=== PATIENT | female | born 1990 | race Caucasian/White ===

== ENCOUNTER → 2018-03-07 17:15 | Outpatient (CLI) | payer BC, SELFPAY ==
[2018-03-07 21:02] LABS: HCG Quantitative /Beta subunit < 2.39 mIU/mL
== END ==
PROVIDERS: Family Provider Family Medicine; PCP Family Medicine; Visit Provider Family Medicine
DX: N91.2 Amenorrhea, unspecified (principal)
CPT/HCPCS: 36415; 84702

== ENCOUNTER 2018-04-27 07:00 | Emergency (ER) | payer BC, SELFPAY ==
[2018-04-27 07:12] VITALS: BP 127/71; PULSE 100; RESP 18; TEMP 36.7; O2SAT 100; BMI 27.7
--- NOTE | 2018-04-27 07:31 | ED.ABDPAIN ---
HPI - Abdominal Pain General Chief Complaint: Abdominal Pain Stated Complaint: pelvic pain Time Seen by Provider: 04/27/18 07:25 Source: patient Mode of arrival: ambulatory Limitations: no limitations History of Present Illness HPI narrative: Patient is a 27-year-old female presents with sudden onset right lower quadrant pain. She was said she was doubled over in pain this morning car ride over here hurt. Last night she was fine. She has some pressure in her pelvic area. Sometimes she has radiation to her flank. But she denies flank to abdomen. No history of kidney stones. She does have a remote history of ovarian cyst. But she says this is far worse. She denies any fever or chills. No painful or frequent urination. MD complaint: abdominal pain Pain Consistency: intermittent Severity: severe Radiation: R flank Migration to: no migration Relieving factors: nothing Exacerbating factors: nothing Related Data Home Medications Medication Instructions Recorded Confirmed norethindrone ac-eth estradiol 1 tab PO DAILY 04/27/18 04/27/18 [Joe 1.5/30 (21)] Previous Rx's Medication Instructions Recorded tacrolimus [Protopic] 1 felipe TOPICAL QDAY #100 gm 07/22/17 Allergies Allergy/AdvReac Type Severity Reaction Status Date / Time adhesive Allergy Mild SENSITIVE Verified 04/27/18 07:18 SKIN amoxicillin Allergy Mild RASH Verified 04/27/18 07:18 latex Allergy Mild LOCAL Verified 04/27/18 07:18 REDNESS Sulfa (Sulfonamide Allergy Unknown Verified 04/27/18 07:18 Antibiotics) [SULFA (SULFONAMIDE ANTIBIOTICS)] codeine AdvReac Mild VOMITING Verified 04/27/18 07:18 Review of Systems Review of Systems GENERAL: Denies chills, fatigue, malaise, fever, sweats, travel HEENT: Denies sinus pain, ear pain, sore throat, difficulty swallowing, neck pain RESPIRATORY: Denies dyspnea, cough, wheezing, hemoptysis, sputum. CARDIOVASCULAR: Denies chest pain, palpitations, orthopnea, edema GASTROINTESTINAL: See HPI : Denies dysuria, frequency, incontinence, hematuria, urinary retention, flank pain. MUSCULOSKELETAL: Denies weakness, joint pain, or bony pain SKIN: No rash, no erythema, no pruritus NEUROLOGIC: Denies weakness, dizziness, headache, numbness, change in speech, confusion PSYCHIATRIC: No concerning psychosocial issues. 12 point review of systems is negative except for those stated above and HPI PFSH Medical History Ovarian cyst (Acute) Surgical History Status post colonoscopy Social History marital status: Smoking Status: Never smoker alcohol intake: current (1-3 A WEEK ) substance use type: does not use Exam Initial Vital Signs Initial Vital Signs: Vital Signs Temperature 98.1 F 04/27/18 07:12 Pulse Rate 100 H 04/27/18 07:12 Respiratory Rate 18 04/27/18 07:12 Blood Pressure 127/71 04/27/18 07:12 Pulse Oximetry 100 04/27/18 07:12 GENERAL: Well-appearing, well-nourished and in no acute distress. HEENT: Head atraumatic,EOMI, pupils reactive CARDIOVASCULAR: Regular rate and rhythm without murmurs, rubs or gallops. RESPIRATORY: Breath sounds equal bilaterally, no wheezes rales or rhonchi. ABDOMEN: Soft, mild right lower quadrant pain no guarding or rebound negative Hutchins : No CVA tenderness EXTREMITIES: Normal range of motion, no clubbing or edema. Neurovascularly intact NEUROLOGICAL: Alert and oriented x4.Normal gait and speech. Cranial nerves II through XII grossly intact. SKIN: Warm, dry, no laceration, no petechiae, no rashes or lesions. Course Orders Ordered: ED Orders 04/27/18 07:36 US pelvic complete Stat 04/27/18 07:37 Complete Blood Count AUTO DIFF Stat Comprehensive Metabolic Panel Stat Lipase Stat 04/27/18 07:45 CT abdomen pelvis w con Stat 04/27/18 08:08 Test Serum,Qual Stat Discontinued Medications Ketorolac Tromethamine (Toradol) 30 mg IV NOW ONE Stop: 04/27/18 07:37 Last Admin: 04/27/18 08:21 Dose: 30 mg Ondansetron HCl (Zofran) 4 mg IV NOW ONE Stop: 04/27/18 07:37 Last Admin: 04/27/18 08:20 Dose: 4 mg Vital Signs - 8 hr 04/27/18 07:12 04/27/18 09:47 Temperature 98.1 F 98.3 F Pulse Rate 100 H 81 Respiratory Rate 18 20 Blood Pressure 127/71 117/77 Pulse Oximetry 100 95 MDM - Abdominal Pain Lab Data Attestation: I reviewed the patient's lab results. Result diagrams: 04/27/18 07:37 04/27/18 07:37 Lab Results 04/27/18 04/27/18 04/27/18 Range/Units 07:37 07:37 08:08 WBC 8.4 (4.5-11.0) X10^3/uL RBC 4.88 (4.0-5.2) X10^6/uL Hgb 13.9 (12.0-16.0) g/dL Hct 41.7 (36-46) % MCV 85.5 (80-100) fL MCH 28.5 (26-34) PG MCHC 33.3 (30-36) % RDW 13.6 (11.6-14.8) % Plt Count 290 (150-400) X10^3/uL Neut % (Auto) 67.1 (50-75) % Lymph % (Auto) 22.3 L (25-40) % [place] % (Auto) 8.5 (3-14) % Eos % (Auto) 1.9 L (2-4) % Baso % (Auto) 0.2 (0-2) % Neut # (Auto) 5600 (9117-3022) /uL Sodium 140 (137-145) mmol/L Potassium 3.9 (3.4-5.1) mmol/L Chloride 105 (98-107) mmol/L Carbon Dioxide 24 (22-32) mmol/L BUN 4 L (7-17) mg/dL Creatinine 0.50 L (0.52-1.04) mg/dL Estimated GFR > 60.0 (>60) mL/min BUN/Creatinine Ratio 8.0 (6-22) Glucose 94 (70-100) mg/dL Calcium 9.6 (8.4-10.2) mg/dL Total Bilirubin 0.4 (0.2-1.3) mg/dL AST 33 (14-36) IU/L ALT 63 H (9-52) IU/L Alkaline Phosphatase 100 (38-126) U/L Total Protein 7.8 (6.3-8.2) g/dL Albumin 4.8 (3.5-5.0) g/dL Globulin 3.0 (1.7-4.1) g/dL Albumin/Globulin Ratio 1.6 (1.0-2.8) Lipase 19 L (23-300) U/L Serum , Qual Negative (Negative) Point of care testing: Point of Care Testing Test Results Negative Urine Dip Bedside Urine Glucose Negative Bedside Urine Bilirubin - Negative Bedside Urine Ketone - Negative Urine Specific Brandon 1.015 Bedside Urine Occult Blood - Negative Bedside Urine pH 7.0 Bedside Urine Protein - Negative Bedside Urine Urobilinogen - Negative Bedside Urine Nitrite - Negative Bedside Urine Leukocytes - Negative Esterase Imaging Data pelvic US: Radiologist's impression: Patient: Mychal Mcneil [facility]#: [id number] : 1990Acct:[id number] Age/Sex: 27 / FDate of Service: 04/27/18 Loc: ED Accession Number: [id number] Procedure: US pelvic complete Ordering Provider: Julita Lam D.O. PROCEDURE: US PELVIC COMPLETE INDICATIONS: PAIN TECHNIQUE: Real-time scanning was performed of the pelvic organs, with image documentation. Additional endovaginal scanning was necessary due to incomplete visualization of the adnexal and endometrial structures by transabdominal scanning. COMPARISON: [facility], CT, CT ABDOMEN PELVIS W CON, 04/27/2018, 7:37. [facility], US, PELVIC COMPLETE, 01/11/2015, 14:51. FINDINGS: Transabdominal scanning: Limited scanning through the kidneys shows no hydronephrosis. No pathologic free abdominal or pelvic fluid. Endovaginal scanning: Uterus: Uterus is normal in size at 7.7 x 3.2 x 4.7 cm. The endometrium measures 5.3 mm in combined thickness. Ovaries: The right ovary measures 2.7 x 2.0 x 2.1 cm and has normal echotexture. The left ovary measures 5.0 x 2.7 x 2.9 cm. There is a simple 4.6 x 1.2 x 2.4 cm left ovarian cyst. There is approximately 50 cc anechoic fluid near the left ovary. IMPRESSION: 1. Sonographic findings suspicious for recent rupture of a left simple ovarian cyst. 6-12 week followup is recommended to ensure resolution of this finding. Please note, ectopic is considered unlikely given the negative urine test. However, please correlate with clinical findings as free fluid in the pelvis can be worrisome for a ruptured ectopic in the appropriate clinical setting. These findings were discussed with Dr. Lam at 9:14 AM on 04/27/18. Dictated by: Tamra Reyna M.D. on 04/27/2018 at 9:10 CT scan - abdomen: Radiologist's impression: PROCEDURE: CT ABDOMEN PELVIS W CON INDICATIONS: right lower quad pain TECHNIQUE: After the administration of intravenous contrast, 5 mm thick sections acquired from the diaphragm to the symphysis. 5 mm coronal and sagittal reformats were acquired. For radiation dose reduction, the following was used: automated exposure control, adjustment of mA and/or kV according to patient size. COMPARISON: [facility], , PELVIC COMPLETE, 04/27/2018, 8:43. FINDINGS: Image quality: Excellent. ABDOMEN: Lung bases: Lung bases are clear. Heart size is normal. Solid organs: Liver is normal in size and enhancement. Gallbladder is unremarkable. Biliary system is non dilated. Pancreas enhances normally. Spleen is normal in size and enhancement. No adrenal nodules. Kidneys demonstrate normal size and enhancement, without hydronephrosis. Peritoneum and bowel: Bowel loops demonstrate normal wall thickness and caliber. No free air. Moderate stool is present without obstruction. The appendix is unremarkable. Nodes and vessels: No retroperitoneal or mesenteric adenopathy by size criteria. Aorta and inferior vena cava are normal in size. Miscellaneous: No ventral hernias. PELVIS: Genitourinary: Bladder wall thickness is normal. There are areas of ill-defined rounded enhancement within the region of the adnexa bilaterally, left greater than right. Moderate free fluid is present within the dependent pelvis. Minimal fluid is noted within the right lower quadrant. Miscellaneous: No inguinal hernias or adenopathy. Bones: No suspicious bony lesions. No vertebral body compression fractures. IMPRESSION: 1. Prominent fluid within the pelvis and right lower quadrant with enhancing areas within adnexa overall highly suggestive of ruptured ovarian cyst. However, please recommend correlation with negative test, as in appropriate clinical setting, similar appearance can be seen with ruptured ectopic . 2. Moderate stool without obstruction. Dictated by: Stefani Rodriguez M.D. on 04/27/2018 at 10:41 MDM Narrative Medical decision making narrative: I initially discussed case with to read the pelvic ultrasound. She is made aware of urine negative but initially was concern for possible ruptured ectopic. She did briefly look at the CT abdomen is and she did not see appendicitis. At that point patient was discharged. Dr. velma mercedes is reading abdominal CT. There was delay in technology. She said she is recorded and read the scan but got lost in the PACS system. She also question possible ectopic. Which point serum was added and is negative. No appendicitis. Likely a ruptured ovarian cyst. History and signs and symptoms also correlate with ruptured ovarian cyst. Discharge Plan Departure Patient Disposition: Home Clinical Impression: Ovarian cyst Discharge Date/Time: 04/27/18 09:47 Interventions: ED Discharge Assessment Last Done: 04/27/18 09:47 Instructions: DI for Ovarian Cyst Activity Restrictions/Additional Instructions: *You have been diagnosed with left ovarian cyst *What to do: Will need repeat ultrasound in 6-12 weeks with her PCP to ensure resolution. *Continue to take medications as directed Motrin 600-800 mg every 8 hr if needed for pain *Follow up with your primary care provider in 2-3 days *Return to ER if you should have worsening pain, fever or any new, worsening or concerning symptoms Prescriptions: No Action tacrolimus [Protopic] 0.1 % ointment 1 felipe Topical QDAY Qty: 100 RF: 3 norethindrone ac-eth estradiol [Joe 1.5 (21)] 1.5-30 mg-mcg tablet 1 tab PO DAILY RF: 0 Referrals: Abe Coffey MD [Primary Care Provider] -
--- NOTE | 2018-04-27 07:36 | DI.US.S_ITS ---
PROCEDURE: US PELVIC COMPLETE INDICATIONS: PAIN TECHNIQUE: Real-time scanning was performed of the pelvic organs, with image documentation. Additional endovaginal scanning was necessary due to incomplete visualization of the adnexal and endometrial structures by transabdominal scanning. COMPARISON: [facility], CT, CT ABDOMEN PELVIS W CON, 04/27/2018, 7:37. [facility], US, PELVIC COMPLETE, 01/11/2015, 14:51. FINDINGS: Transabdominal scanning: Limited scanning through the kidneys shows no hydronephrosis. No pathologic free abdominal or pelvic fluid. Endovaginal scanning: Uterus: Uterus is normal in size at 7.7 x 3.2 x 4.7 cm. The endometrium measures 5.3 mm in combined thickness. Ovaries: The right ovary measures 2.7 x 2.0 x 2.1 cm and has normal echotexture. The left ovary measures 5.0 x 2.7 x 2.9 cm. There is a simple 4.6 x 1.2 x 2.4 cm left ovarian cyst. There is approximately 50 cc anechoic fluid near the left ovary. IMPRESSION: 1. Sonographic findings suspicious for recent rupture of a left simple ovarian cyst. 6-12 week followup is recommended to ensure resolution of this finding. Please note, ectopic is considered unlikely given the negative urine test. However, please correlate with clinical findings as free fluid in the pelvis can be worrisome for a ruptured ectopic in the appropriate clinical setting. These findings were discussed with Dr. Lam at 9:14 AM on 04/27/18. Dictated by: Tamra Reyna M.D. on 04/27/2018 at 9:10 Approved by: Tamra Reyna M.D. on 04/27/2018 at 9:15
--- NOTE | 2018-04-27 07:45 | DI.CT.S_ITS ---
PROCEDURE: CT ABDOMEN PELVIS W CON INDICATIONS: right lower quad pain TECHNIQUE: After the administration of intravenous contrast, 5 mm thick sections acquired from the diaphragm to the symphysis. 5 mm coronal and sagittal reformats were acquired. For radiation dose reduction, the following was used: automated exposure control, adjustment of mA and/or kV according to patient size. COMPARISON: [facility], , US PELVIC COMPLETE, 04/27/2018, 8:43. FINDINGS: Image quality: Excellent. ABDOMEN: Lung bases: Lung bases are clear. Heart size is normal. Solid organs: Liver is normal in size and enhancement. Gallbladder is unremarkable. Biliary system is non dilated. Pancreas enhances normally. Spleen is normal in size and enhancement. No adrenal nodules. Kidneys demonstrate normal size and enhancement, without hydronephrosis. Peritoneum and bowel: Bowel loops demonstrate normal wall thickness and caliber. No free air. Moderate stool is present without obstruction. The appendix is unremarkable. Nodes and vessels: No retroperitoneal or mesenteric adenopathy by size criteria. Aorta and inferior vena cava are normal in size. Miscellaneous: No ventral hernias. PELVIS: Genitourinary: Bladder wall thickness is normal. There are areas of ill-defined rounded enhancement within the region of the adnexa bilaterally, left greater than right. Moderate free fluid is present within the dependent pelvis. Minimal fluid is noted within the right lower quadrant. Miscellaneous: No inguinal hernias or adenopathy. Bones: No suspicious bony lesions. No vertebral body compression fractures. IMPRESSION: 1. Prominent fluid within the pelvis and right lower quadrant with enhancing areas within adnexa overall highly suggestive of ruptured ovarian cyst. However, please recommend correlation with negative test, as in appropriate clinical setting, similar appearance can be seen with ruptured ectopic . 2. Moderate stool without obstruction. Dictated by: Stefani Rodriguez M.D. on 04/27/2018 at 10:41 Approved by: Stefani Rodriguez M.D. on 04/27/2018 at 10:46
[2018-04-27 08:18] LABS: Add Manual Diff / Slide Review NO; Basophils Percent Auto 0.2 % (0-2); Eosinophils Percent Auto 1.9 % (2-4); Hematocrit 41.7 % (36-46); Hemoglobin 13.9 g/dL (12.0-16.0); Lymphocytes Percent Auto 22.3 % (25-40); Mean Corpuscular HGB Conc 33.3 % (30-36); Mean Corpuscular Hemoglobin 28.5 PG (26-34); Mean Corpuscular Volume 85.5 fL (80-100); Monocytes Percent Auto 8.5 % (3-14); Neutrophils Absolute Auto 5600 /uL (3000-5900); Neutrophils Percent Auto 67.1 % (50-75); Platelet Count 290 X10^3/uL (150-400); Red Blood Cell Count 4.88 X10^6/uL (4.0-5.2); Red Cell Distribution Width 13.6 % (11.6-14.8); White Blood Cell Count 8.4 X10^3/uL (4.5-11.0)
[2018-04-27] MEDS: ONDANSETRON 4 MG/2 ML INJ IV (08:20)
[2018-04-27] MEDS: KETOROLAC 60 MG/2 ML VIAL 30 MG IV (08:21)
[2018-04-27 08:29] LABS: Alanine Aminotransferase 63 IU/L (9-52); Albumin 4.8 g/dL (3.5-5.0); Albumin Globulin Ratio 1.6 (1.0-2.8); Alkaline Phosphatase 100 U/L (38-126); Aspartate Aminotransferase 33 IU/L (14-36); Bilirubin Total 0.4 mg/dL (0.2-1.3); Blood Urea Nitrogen 4 mg/dL (7-17); Calcium 9.6 mg/dL (8.4-10.2); Carbon Dioxide 24 mmol/L (22-32); Chloride 105 mmol/L (98-107); Estimated Glomerular Filt Rate > 60.0 mL/min (>60); Glucose 94 mg/dL (70-100); HEMOLYSIS < 15 (0-50); Lipase 19 U/L (23-300); Potassium 3.9 mmol/L (3.4-5.1); Sodium 140 mmol/L (137-145); Total Protein 7.8 g/dL (6.3-8.2)
[2018-04-27 09:47] VITALS: BP 117/77; PULSE 81; RESP 20; TEMP 36.8; O2SAT 95
[2018-04-27 10:54] LABS: Pregnancy Test Serum,Qual Negative (Negative)
--- NOTE | 2018-04-30 15:06 | PC.NURSE ---
Follow-up phone call provided. No answer at this time
== END 2018-04-27 09:47 | disposition home or self-care (01) ==
PROVIDERS: Emergency Provider Emergency Medicine; PCP Family Medicine
DX: N83.209 Unspecified ovarian cyst, unspecified side (principal)
CPT/HCPCS: 74177; 76830; 76856; 80053; 81003; 81025; 83690; 84703; 85025; 96374; 96375; 99282; 99285; J1885; J2405; Q9967

== ENCOUNTER → 2018-06-10 09:56 | Outpatient (CLI) | payer BC, SELFPAY ==
--- NOTE | 2018-06-10 09:58 | DI.US.S_ITS ---
PROCEDURE: US PELVIC COMPLETE INDICATIONS: FOLLOW-UP OVARIAN CYST TECHNIQUE: Real-time scanning was performed of the pelvic organs, with image documentation. Additional endovaginal scanning was necessary due to incomplete visualization of the adnexal and endometrial structures by transabdominal scanning. COMPARISON: [facility], CT, CT ABDOMEN PELVIS W CON, 04/27/2018, 7:37. [facility], US, US PELVIC COMPLETE, 04/27/2018, 8:43. [facility], US, PELVIC COMPLETE, 01/11/2015, 14:51. FINDINGS: Transabdominal scanning: Limited scanning through the kidneys shows no hydronephrosis. No pathologic free abdominal or pelvic fluid. Endovaginal scanning: Uterus: Uterus is normal in size at 3.0 x 3.7 x 6.7 cm, anteverted. The endometrium measures 1.5 mm in combined thickness. Ovaries: Normal bilaterally, measuring up to 1.4 x 1.8 x 2.8 cm on the right and 1.8 x 2.4 x 3.6 cm on the left IMPRESSION: Resolution of adnexal cyst, normal appearing ovaries and uterus at this time. Dictated by: Shukri Dwyer M.D. on 06/10/2018 at 12:22 Approved by: Shukri Dwyer M.D. on 06/10/2018 at 12:23
== END ==
PROVIDERS: PCP Family Medicine; Visit Provider Family Medicine
DX: N83.209 Unspecified ovarian cyst, unspecified side (principal)
CPT/HCPCS: 76830; 76856

== ENCOUNTER → 2018-09-18 11:22 | Outpatient (CLI) | payer BC, SELFPAY ==
[2018-09-18 11:43] LABS: Influenza A and B by PCR Rapid Negative (Negative)
== END ==
PROVIDERS: PCP Family Medicine; Visit Provider Physician Assistant
DX: R68.89 Other general symptoms and signs (principal)
CPT/HCPCS: 87400

== ENCOUNTER → 2019-02-24 11:16 | Outpatient (CLI) | payer BC, SELFPAY ==
--- NOTE | 2019-02-24 11:18 | DI.US.S_ITS ---
PROCEDURE: US PELVIC COMPLETE INDICATIONS: PELVIC PAIN TECHNIQUE: Real-time scanning was performed of the pelvic organs, with image documentation. Additional endovaginal scanning was necessary due to incomplete visualization of the adnexal and endometrial structures by transabdominal scanning. COMPARISON: [facility], , US PELVIC COMPLETE, 06/10/2018, 10:28. FINDINGS: Transabdominal scanning: Limited scanning through the kidneys shows no hydronephrosis. No pathologic free abdominal or pelvic fluid. Endovaginal scanning: Uterus: Uterus is normal in size at 9.2 x 3.8 x 4.8 cm. The endometrium measures 6.0 mm in combined thickness. Ovaries: Thick walled, complex cysts involve both the right and left ovaries measuring 4.1 x 3.4 x 3.4 cm on the right and 5.0 x 3.2 x 4.5 cm on the left. IMPRESSION: Complex bilateral ovarian cysts. Recommend short-term followup pelvic ultrasound in 6-12 weeks to document temporal resolution. Dictated by: Amilcar YOUNG Interpreted: Stefani Rodriguez MD on 02/24/2019 at 17:09 Approved by: Stefani Rodriguez M.D. on 02/24/2019 at 17:37
== END ==
PROVIDERS: Family Provider Family Medicine; PCP Family Medicine; Visit Provider Hospitalist
DX: R10.2 Pelvic and perineal pain (principal); N83.292 Other ovarian cyst, left side; N83.291 Other ovarian cyst, right side
CPT/HCPCS: 76830; 76856

== ENCOUNTER → 2019-03-14 15:21 | Outpatient (CLI) | payer BC, SELFPAY ==
[2019-03-14 17:04] LABS: Follicle Stimulating Hormone 5.94 mIU/mL; Prolactin 49.8 ng/mL (3.0-18.6)
[2019-03-14 17:18] LABS: Thyroid Stimulating Hormone 1.03 uIU/mL (0.47-4.68)
[2019-03-17 14:33] LABS: Testosterone Free 4.7 pg/mL (0.1-6.4); Testosterone Total 51 ng/dL (2-45)
== END ==
PROVIDERS: PCP Family Medicine
DX: N91.2 Amenorrhea, unspecified (principal); N97.0 Female infertility associated with anovulation
CPT/HCPCS: 36415; 83001; 83002; 84146; 84402; 84403; 84443

== ENCOUNTER → 2019-03-16 10:21 | Outpatient (CLI) | payer BC, SELFPAY | PROVIDERS: PCP Family Medicine | DX: Z23 Encounter for immunization (principal) | CPT/HCPCS: 90471; 90686 ==

== ENCOUNTER → 2019-03-23 15:42 | Outpatient (CLI) | payer BC, SELFPAY | PROVIDERS: Family Provider Family Medicine; PCP Family Medicine | DX: N97.9 Female infertility, unspecified (principal) | CPT/HCPCS: 36415; 84144 ==

== ENCOUNTER → 2019-03-30 13:18 | Outpatient (CLI) | payer BC, SELFPAY ==
[2019-03-30 14:38] LABS: HCG Quantitative /Beta subunit 159.35 mIU/mL
== END ==
PROVIDERS: PCP Family Medicine
DX: Z32.01 Encounter for pregnancy test, result positive (principal)
CPT/HCPCS: 36415; 84702

== ENCOUNTER → 2019-04-01 09:48 | Outpatient (CLI) | payer BC, SELFPAY ==
[2019-04-01 13:07] LABS: HCG Quantitative /Beta subunit 348.41 mIU/mL
== END ==
PROVIDERS: PCP Family Medicine
DX: Z32.01 Encounter for pregnancy test, result positive (principal)
CPT/HCPCS: 36415; 84702

== ENCOUNTER → 2019-04-26 14:33 | Outpatient (CLI) | payer BC, SELFPAY ==
[2019-04-26 15:28] LABS: Add Manual Diff / Slide Review NO; Basophils Absolute Auto 0 /uL (0-100); Basophils Percent Auto 0.3 % (0-2); Eosinophils Absolute Auto 100 /uL (0-450); Eosinophils Percent Auto 0.7 % (2-4); Hematocrit 36.2 % (36-46); Hemoglobin 12.5 g/dL (12.0-16.0); Lymphocytes Absolute Auto 2200 /uL (1100-4500); Lymphocytes Percent Auto 16.8 % (25-40); Mean Corpuscular HGB Conc 34.6 % (30-36); Mean Corpuscular Hemoglobin 29.4 PG (26-34); Monocytes Absolute Auto 700 /uL (0-900); Monocytes Percent Auto 5.1 % (3-14); Neutrophils Absolute Auto 9900 /uL (1500-7000); Neutrophils Percent Auto 77.1 % (50-75); Platelet Count 319 X10^3/uL (150-400); Red Blood Cell Count 4.25 X10^6/uL (4.0-5.2); Red Cell Distribution Width 13.5 % (11.6-14.8); White Blood Cell Count 12.9 X10^3/uL (4.5-11.0)
[2019-04-26 15:50] LABS: Appearance Urine UA CLEAR; Bilirubin Urine UA NEGATIVE (NEGATIVE); Color Urine UA YELLOW; Glucose Urine UA NEGATIVE (Negative); Ketones Urine UA NEGATIVE (NEGATIVE); Leukocyte Esterase Urine UA NEGATIVE (NEGATIVE); Nitrite Urine UA NEGATIVE (Negative); Occult Blood Urine UA NEGATIVE (Negative); Protein Urine UA NEGATIVE (Negative); Specific Gravity Urine UA 1.015 (1.000-1.035); Urobilinogen Urine UA 0.2 E.U./dL (0.2)
[2019-04-26 15:58] LABS: pH Urine UA 5.5 (4.5-8.0)
[2019-04-26 17:49] LABS: Hepatitis B Surface Antigen NEGATIVE s/c (NEGATIVE)
[2019-04-26 18:33] LABS: HIV 1 & 2 Ab/Ag 4th Gen Combo NEGATIVE (NEGATIVE); Hep C Virus Ab w/Reflex Quant NEGATIVE s/c (NEGATIVE)
[2019-04-29 20:08] LABS: RPR Screen Nonreactive (Nonreactive)
== END ==
PROVIDERS: PCP Family Medicine; Visit Provider Specialist
DX: Z34.01 Encounter for supervision of normal first pregnancy, first trimester (principal)
CPT/HCPCS: 36415; 80055; 81003; 86787; 86803; 86850; 86900; 86901; 87086; 87389

== ENCOUNTER 2019-06-18 07:12 | Emergency (ER) | payer BC, SELFPAY ==
--- NOTE | 2019-06-18 07:19 | ED.URI ---
HPI - URI/Sore Throat General Chief Complaint: Ear Stated Complaint: ear pain, thinks sinus and ear infection Time Seen by Provider: 06/18/19 07:18 Source: patient Mode of arrival: Ambulatory Limitations: no limitations History of Present Illness HPI Narrative: Patient is a 28-year-old female [id number] weeks presenting with upper sinus infection and now worsening left ear pain. She says that she has been using a Neti pot for the last 2 weeks however now she has significant pain over her left zygomatic arch her left ear is quite painful she was unable to sleep last night. No fevers or chills she does have a cough nonproductive no shortness of breath. MD Complaint: sinus pain Onset (ago): day(s) Duration: constant Severity: moderate Relieving factors: nothing Related Data Home Medications Medication Instructions Recorded Confirmed cetirizine 10 mg tablet 10 mg PO DAILY PRN 02/23/19 05/31/19 prenat.vits,boyd,[id number]-yrpy-[id number] 1 tab PO DAILY 04/18/19 05/31/19 Previous Rx's Medication Instructions Recorded cefdinir 300 mg PO Q12H #14 cap 06/18/19 Allergies Allergy/AdvReac Type Severity Reaction Status Date / Time adhesive Allergy Mild SENSITIVE Verified 06/18/19 07:20 SKIN amoxicillin Allergy Mild RASH Verified 06/18/19 07:20 latex Allergy Mild LOCAL Verified 06/18/19 07:20 REDNESS Sulfa (Sulfonamide Allergy Unknown Verified 06/18/19 07:20 Antibiotics) [SULFA (SULFONAMIDE ANTIBIOTICS)] codeine AdvReac Mild VOMITING Verified 06/18/19 07:20 Review of Systems Review of Systems Narrative: GENERAL: Denies chills, fatigue, malaise, fever, sweats, travel HEENT: See HPI RESPIRATORY: Denies dyspnea, cough, wheezing, hemoptysis, sputum. CARDIOVASCULAR: Denies chest pain, palpitations, orthopnea, edema GASTROINTESTINAL: Denies nausea, vomiting, abdominal pain, diarrhea, constipation, melena. : Denies dysuria, frequency, incontinence, hematuria, urinary retention, flank pain. MUSCULOSKELETAL: Denies weakness, joint pain, or bony pain SKIN: No rash, no erythema, no pruritus NEUROLOGIC: Denies weakness, dizziness, headache, numbness, change in speech, confusion PSYCHIATRIC: No concerning psychosocial issues. 12 point review of systems is negative except for those stated above and HPI Patient History Medical History Anemia (Chronic 2005) Chicken pox (Resolved 1995) Eczema (Chronic 1999) Endometriosis (Chronic 2010) Fractures (Resolved 2003) Hemorrhoid (Chronic 2013) Infertility (Acute) Irregular menstrual cycle (Chronic 2010) Irritable bowel syndrome (Chronic 2009) Migraines (Chronic 2007) Ovarian cyst (Chronic 2011) Painful menstrual periods (Chronic 2010) Seasonal allergies (Chronic 2007) Tinnitus (Chronic 2009) Surgical History Anesthesia (Resolved) History of esophagogastroduodenoscopy (EGD) (Resolved 05/21/14) History of knee surgery (Resolved 11/08/14) Status post colonoscopy (Resolved 05/21/14) Family History Father Cancer High cholesterol Brain cancer Seizure Grandfather Heart disease Congestive heart failure Grandmother Cancer Mother Type 2 diabetes mellitus Depression Hypertension Mental health problem Grandfather Hemorrhagic stroke Grandmother Heart disease Heart attack Brother Developmental delay Brother Addiction Other Colon polyps Social History marital status: number of children: 0 household members: spouse pets and animals: Yes (Dogs X 2) education level: college (two Associate Degrees) occupational status: employed current occupational exposures/hazards: Yes (Radiology and Fluorscopy ) Smoking Status: Never smoker second hand exposure: No alcohol intake: former (Socially) substance use type: does not use Smoking Status: Never smoker alcohol intake frequency: 0-2 drinks per day Substance Use Type: marijuana Exam Initial Vital Signs Initial Vital Signs: Vital Signs Temperature 98.5 F 06/18/19 07:20 Pulse Rate 110 H 06/18/19 07:20 Respiratory Rate 16 06/18/19 07:20 Blood Pressure 134/89 06/18/19 07:20 Pulse Oximetry 100 06/18/19 07:20 GENERAL: Well-appearing, well-nourished and in no acute distress. HEENT: Head atraumatic,EOMI, pupils reactive, left facial tenderness no swelling EARS: Left tympanic membrane is erythematous with bulging membrane is right ear is within normal limits PHARYNX: No erythema, no tonsillar exudate, no cervical lymphadenopathy CARDIOVASCULAR: Regular rate and rhythm without murmurs, rubs or gallops. RESPIRATORY: Breath sounds equal bilaterally, no wheezes rales or rhonchi. EXTREMITIES: Normal range of motion, no clubbing or edema. Neurovascularly intact NEUROLOGICAL: Alert and oriented x4.Normal gait and speech. Cranial nerves II through XII grossly intact. SKIN: Warm, dry, no laceration, no petechiae, no rashes or lesions. Course Vital Signs Vital signs: Vital Signs - 8 hr 06/18/19 07:20 Temperature 98.5 F Pulse Rate 110 H Respiratory Rate 16 Blood Pressure 134/89 Pulse Oximetry 100 MDM - URI/Sore Throat MDM Narrative Medical decision making narrative: heart tones done by myself heart rate 156 Discharge Plan Departure Patient Disposition: Home Clinical Impression: Acute left otitis media Discharge Date/Time: 06/18/19 07:49 Instructions: Middle Ear Infection Activity Restrictions/Additional Instructions: *You have been diagnosed with left ear infection *What to do: Rest, increase fluid intake *Continue to take medications as directed Cefdinir 300 mg twice a day for 10 days Tylenol 1000 mg every 6 hours if needed for pain or fever do not exceed more than 4000 mg to 24 hours *Follow up with your primary care provider in 2-3 days *Return to ER if you should have increasing pain, fevers not controlled with Tylenol increasing shortness of breath or cough or any new, worsening or concerning symptoms Prescriptions: New cefdinir 300 mg capsule 300 mg PO Q12H Qty: 14 RF: 0 No Action cetirizine [Zyrtec] 10 mg tablet 10 mg PO DAILY PRNRF: 0 prenat.vits,boyd,qnw-[id number]-unrok Tablet 1 tab PO DAILY RF: 0 Referrals: Abe Coffey MD [Primary Care Provider] -
[2019-06-18 07:20] VITALS: BP 134/89; PULSE 110; RESP 16; TEMP 36.9; O2SAT 100; BMI 27.3
== END 2019-06-18 07:49 | disposition home or self-care (01) ==
PROVIDERS: Emergency Provider Emergency Medicine; PCP Family Medicine
DX: H66.92 Otitis media, unspecified, left ear (principal); Z33.1 Pregnant state, incidental
CPT/HCPCS: 99282

== ENCOUNTER → 2019-07-10 14:50 | Outpatient (CLI) | payer BC, SELFPAY ==
[2019-07-13 07:49] LABS: AFP, Serum 62.6 ng/mL; Calc Gestational Age 18.4; Cigarette Smoker NO; Donated Egg NOT GIVEN; Donor Egg Age NOT GIVEN; Estriol, Free 1.73 ng/mL; Inhibin A, Dimeric 318 pg/mL; Inhibin A, MoM 1.84; Maternal Weight 143 lbs; Number of Fetuses NOT GIVEN; Previous Pregnancy Down Syndro NOT GIVEN; hCG, MoM 1.29; hCG, Serum 30.2 IU/mL
== END ==
PROVIDERS: PCP Family Medicine; Visit Provider Specialist
DX: Z34.02 Encounter for supervision of normal first pregnancy, second trimester (principal)
CPT/HCPCS: 36415; 82105; 82677; 84702; 86336

== ENCOUNTER → 2019-07-24 14:00 | Outpatient (CLI) | payer BC, SELFPAY ==
--- NOTE | 2019-07-24 14:02 | DI.US.S_ITS ---
PROCEDURE: US OB >= 14 WEEKS FETUS INDICATIONS: ANATOMY OUTSIDE/PRIOR DATING DATA: Last menstrual period (LMP): 03/01/19. LMP-based estimated date of delivery (MARTHA): 12/07/19. First dating scan (date and location): 04/18/19. Estimated date of delivery (MARTHA) from first dating scan: 12/08/19. TECHNIQUE: Real-time scanning was performed of the fetus, with image documentation and biometric measurements. Endovaginal scanning: Not performed COMPARISON: [facility], , OB >= 14 WEEKS FETUS, 07/10/2019, 14:34. FINDINGS: General: A single living intrauterine gestation is present. Presentation: Vertex. Placenta: Placental position is anterior, without previa. Lower placental edge 2 cm or less from internal cervical os qualifies as low lying placenta. Amniotic fluid index: 22 cm, normal range is 5-24 cm. heart rate: 175 beats per minute. Maternal cervical canal: 3 points are cm long. Normal lower limit is 2.5 cm. biometrics: Biparietal diameter: 5.4 cm, correlating with 22 weeks and 3 days Head circumference: 20.1 cm, correlating with 22 weeks and 2 days Abdominal circumference: 16.8 cm, correlating with 21 weeks and 6 days Femur length: 3.4 cm, correlating with 20 weeks and 5 days Estimated gestational age from initial scan: not applicable. Composite gestational age from present scan: 21 weeks and 6 days Estimated weight and percentile: 425 g correlating with the 93rd percentile based off gestational age. Measurement variability for biometric dating: +/- 7 days from 14 weeks to 15 weeks 6 days gestation, +/- 10 days from 16 weeks to 21 weeks 6 days gestation, +/- 2 weeks from 22 weeks to 27 weeks 6 days gestation, +/- 3 weeks for 28 weeks gestation or later. weight reference: 4500 g or EFW >90/95% is considered macrosomia or large for gestational age. EFW <10% is small for gestational age. EFW 5% or less is considered intra-uterine growth restriction. Anatomic survey: Neuro: Ventricles are non-dilated at less than 10 mm. Cisterna magna is normal at 3-11 mm. Cerebellum is normal in size and morphology. Nuchal skin fold: Normal at less than 6 mm between 14-21 weeks gestational age. Face: Nose and lips, facial profile are normal. Spine: No evidence for spina bifida. Heart: 4-chambered heart is present, with normal ventricular outflow tracts. Diaphragm: Diaphragm is intact. Stomach: Left-sided stomach is present. Kidneys: No hydronephrosis. Normal is less than 5 mm in 2nd trimester, less than 7 mm in 3rd trimester. Cord: 3-vessel cord has orthotopic insertion. Bladder: Normal in size. Extremities: All 4 extremities identified. IMPRESSION: Single living intrauterine gestation with an estimated sonographic gestational age of approximately 21 weeks and 6 days. Normal second trimester anatomic screening survey. Dictated by: Randall Sanchez M.D. on 07/25/2019 at 11:41 Approved by: Randall Sanchez M.D. on 07/25/2019 at 12:17
== END ==
PROVIDERS: PCP Family Medicine; Referring Provider Specialist; Visit Provider Specialist
DX: Z34.02 Encounter for supervision of normal first pregnancy, second trimester (principal); Z3A.21 21 weeks gestation of pregnancy
CPT/HCPCS: 76811

== ENCOUNTER → 2019-08-21 10:23 | Outpatient (CLI) | payer BC, SELFPAY ==
[2019-08-21 12:23] LABS: Hematocrit 31.7 % (36-46); Hemoglobin 10.8 g/dL (12.0-16.0)
[2019-08-21 12:46] LABS: GTT (PREG) 1 Hour PP 50gm Dose 66 mg/dL (76-139)
== END ==
PROVIDERS: PCP Family Medicine; Referring Provider Specialist; Visit Provider Specialist
DX: Z34.02 Encounter for supervision of normal first pregnancy, second trimester (principal)
CPT/HCPCS: 36415; 82950; 85014; 85018

== ENCOUNTER 2019-08-27 12:16 | Outpatient (CLI) | payer BC, SELFPAY ==
[2019-08-27] MEDS: LACTATED RINGERS 1,000 ML 1000 ML IV (13:08)
[2019-08-27 13:17] LABS: Add Manual Diff / Slide Review NO; Basophils Absolute Auto 0 /uL (0-100); Basophils Percent Auto 0.2 % (0-2); Eosinophils Absolute Auto 0 /uL (0-450); Eosinophils Percent Auto 0.3 % (2-4); Hematocrit 34.8 % (36-46); Hemoglobin 11.8 g/dL (12.0-16.0); Lymphocytes Absolute Auto 1700 /uL (1100-4500); Lymphocytes Percent Auto 15.7 % (25-40); Mean Corpuscular HGB Conc 33.9 % (30-36); Mean Corpuscular Hemoglobin 29.9 PG (26-34); Mean Corpuscular Volume 88.3 fL (80-100); Monocytes Absolute Auto 600 /uL (0-900); Monocytes Percent Auto 5.9 % (3-14); Neutrophils Absolute Auto 8300 /uL (1500-7000); Neutrophils Percent Auto 77.9 % (50-75); Platelet Count 305 X10^3/uL (150-400); Red Blood Cell Count 3.94 X10^6/uL (4.0-5.2); Red Cell Distribution Width 13.6 % (11.6-14.8); White Blood Cell Count 10.6 X10^3/uL (4.5-11.0)
--- NOTE | 2019-08-27 13:19 | P.TNLD_ITS ---
Visit Information Visit Information Date of evaluation: 08/27/19 Primary OB Provider: Autumn Mcallister On-call OB Provider: Aleksandra Cade Reason for Evaluation: Yes other Comments/Additional reasons for admission: 28YO @ [id number], by early US, presents for evaluation of nausea and vomiting. Has had generalized abdominal pain and cramping x 2.5 days. N/V started yesterday and has persisted through today, unable to keep down any fluids today despite taking Zofran 4mg Q8hr PRN. +FM. No diarrhea, fever, vaginal bleeding or menstrual like cramping. Waves of abdominal pain are less today than they were the last 2 days. Vital Signs Vital Signs: BP 118/81, HR95, RR18, T97.3 PFS Medical History Anemia (Chronic 2005) Chicken pox (Resolved 1995) Eczema (Chronic 1999) Endometriosis (Chronic 2010) Fractures (Resolved 2003) Hemorrhoid (Chronic 2013) Infertility (Acute) Irregular menstrual cycle (Chronic 2010) Irritable bowel syndrome (Chronic 2009) Migraines (Chronic 2007) Ovarian cyst (Chronic 2011) Painful menstrual periods (Chronic 2010) Seasonal allergies (Chronic 2007) Tinnitus (Chronic 2009) Surgical History Anesthesia (Resolved) History of esophagogastroduodenoscopy (EGD) (Resolved 05/21/14) History of knee surgery (Resolved 11/08/14) Status post colonoscopy (Resolved 05/21/14) Family History Father Cancer High cholesterol Brain cancer Seizure Grandfather Heart disease Congestive heart failure Grandmother Cancer Mother Type 2 diabetes mellitus Depression Hypertension Mental health problem Grandfather Hemorrhagic stroke Grandmother Heart disease Heart attack Brother Developmental delay Brother Addiction Other Colon polyps Social History marital status: number of children: 0 household members: spouse pets and animals: Yes (Dogs X 2) education level: college (two Associate Degrees) occupational status: employed current occupational exposures/hazards: Yes (Radiology and Fluorscopy ) Smoking Status: Never smoker second hand exposure: No alcohol intake: former (Socially) substance use type: does not use Review of Systems Review of Systems ROS: Yes All systems reviewed with the patient and are negative except as otherwise documented Exam Vital Signs (past 8 hours): see above Const General: cooperative, comfortable and well groomed Nutritional Appearance: average body habitus Orientation: alert, awake and oriented x3 Resp Effort & Inspection: normal respiratory effort and able to speak in complete sentences Auscultation: clear to auscultation bilaterally Cardio Rate: regular rate Rhythm: regular rhythm Heart Sounds: murmur systolic GI Inspection: normal to inspection Palpation: soft Auscultation: normal bowel sounds Other: gravid, normal uterine enlargement, no tenderness w/ palpation Objective Labs Result Diagrams: 08/27/19 13:15 08/27/19 13:15 Labs: Laboratory Results - last 24 hr 08/27/19 13:15 WBC 10.6 RBC 3.94 L Hgb 11.8 L Hct 34.8 L MCV 88.3 MCH 29.9 MCHC 33.9 RDW 13.6 Plt Count 305 Neut % (Auto) 77.9 H Lymph % (Auto) 15.7 L [place] % (Auto) 5.9 Eos % (Auto) 0.3 L Baso % (Auto) 0.2 Neut # (Auto) 8300 H Lymph # (Auto) 1700 [place] # (Auto) 600 Eos # (Auto) 0 Baso # (Auto) 0 Evaluation Evaluation Baseline heart rate: 145 Variability: Moderate (11-25) monitor accelerations: Present monitor decelerations: Absent Laboratory results: Laboratory Tests 08/27/19 13:15 WBC 10.6 RBC 3.94 L Hgb 11.8 L Hct 34.8 L MCV 88.3 MCH 29.9 MCHC 33.9 RDW 13.6 Plt Count 305 Neut % (Auto) 77.9 H Lymph % (Auto) 15.7 L [place] % (Auto) 5.9 Eos % (Auto) 0.3 L Baso % (Auto) 0.2 Neut # (Auto) 8300 H Lymph # (Auto) 1700 [place] # (Auto) 600 Eos # (Auto) 0 Baso # (Auto) 0 Diagnosis, Plan/Disposition Final Diagnosis (1) Vomiting affecting : Current Visit: Yes Status: Acute Problem details: Counseled on likely gastroenteritis and 24-48 hour self-limiting nature of the illness. IV fluids and nausea medication given. Pt was able to keep down fluids and crackers in triage. Recommend Zofran 8mg PO Q8 hours and constant fluids until nausea improves. (2) 25 weeks gestation of : Current Visit: Yes Status: Acute Problem details: F/U w/ OB providers as previously scheduled.
[2019-08-27 13:27] LABS: Appearance Urine UA CLEAR; Bilirubin Urine UA NEGATIVE (NEGATIVE); Color Urine UA YELLOW; Glucose Urine UA NEGATIVE (Negative); Ketones Urine UA 3+ (NEGATIVE); Leukocyte Esterase Urine UA NEGATIVE (NEGATIVE); Nitrite Urine UA NEGATIVE (Negative); Occult Blood Urine UA NEGATIVE (Negative); Protein Urine UA 1+ (Negative); Specific Gravity Urine UA >=1.030 (1.000-1.035); Urobilinogen Urine UA 0.2 E.U./dL (0.2)
[2019-08-27 13:29] LABS: Amylase 44 U/L (30-110)
[2019-08-27 13:30] LABS: Alanine Aminotransferase 21 IU/L (<35); Albumin 4.2 g/dL (3.5-5.0); Albumin Globulin Ratio 1.3 (1.0-2.8); Alkaline Phosphatase 101 U/L (38-126); Aspartate Aminotransferase 28 IU/L (14-36); BUN Creatinine Ratio 17.1 (6-22); Bilirubin Total 0.3 mg/dL (0.2-1.3); Blood Urea Nitrogen 7 mg/dL (7-17); Calcium 9.4 mg/dL (8.4-10.2); Carbon Dioxide 18 mmol/L (22-32); Chloride 108 mmol/L (98-107); Estimated Glomerular Filt Rate > 60.0 mL/min (>60); Globulin 3.3 g/dL (1.7-4.1); Glucose 68 mg/dL (70-100); HEMOLYSIS < 15 (0-50); Lipase 21 U/L (23-300); Sodium 138 mmol/L (137-145); Total Protein 7.5 g/dL (6.3-8.2)
[2019-08-27] MEDS: METOCLOPRAMIDE 10 MG/2 ML INJ 5 MG IV (13:33)
[2019-08-27 13:50] LABS: Bacteria Urine Many (>30); Culture Indicated Urine Specimen Cultured; Mucus Urine 1+ (Negative); RBC Urine 0-1/HPF (0-5/HPF); Squamous Epithelial Cell Urine 1-5 /HPF (0-5/HPF); WBC Urine 5-10/HPF (0-5/HPF)
== END 2019-08-27 14:16 | disposition home or self-care (01) ==
LOC: LABOR 12:20 → OB 08-28 11:52
PROVIDERS: PCP Family Medicine; Referring Provider Specialist; Visit Provider Nurse Practitioner Obstetrics & Gynecology
DX: O21.9 Vomiting of pregnancy, unspecified (principal); O99.282 Endocrine, nutritional and metabolic diseases complicating pregnancy, second trimester; O43.892 Other placental disorders, second trimester; E28.2 Polycystic ovarian syndrome; R10.84 Generalized abdominal pain; R30.0 Dysuria; Z3A.25 25 weeks gestation of pregnancy
CPT/HCPCS: 59025; 80053; 81001; 82150; 83690; 85025; 87086; 96360; G0378; G0379; J2765

== ENCOUNTER → 2019-08-31 14:26 | Oncology outpatient (ONC) | payer BC, SELFPAY ==
[2019-08-31] MEDS: ONDANSETRON 4 MG/2 ML INJ IV (14:53)
[2019-08-31] MEDS: LACTATED RINGERS 1,000 ML 1000 ML IV (14:53)
[2020-03-17 09:28] LABS: COVID19 Sendout Not Detected (Not Detect)
== END ==
LOC: ONC 14:27
PROVIDERS: Physician Assistant; PCP Family Medicine
DX: O21.0 Mild hyperemesis gravidarum (principal)
CPT/HCPCS: 87635; 96360; 96375; J2405

== ENCOUNTER → 2019-11-08 14:52 | Outpatient (CLI) | payer BC, SELFPAY ==
[2019-11-09 14:06] LABS: Strep Grp B PCR NEG for Grp B Strep
== END ==
PROVIDERS: PCP Family Medicine; Visit Provider Specialist
DX: Z34.03 Encounter for supervision of normal first pregnancy, third trimester (principal)
CPT/HCPCS: 87653

== ENCOUNTER 2019-11-20 08:59 | Outpatient (CLI) | payer BC, SELFPAY ==
[2019-11-20 10:01] LABS: Add Manual Diff / Slide Review NO; Basophils Absolute Auto 0 /uL (0-100); Basophils Percent Auto 0.4 % (0-2); Eosinophils Absolute Auto 100 /uL (0-450); Eosinophils Percent Auto 0.6 % (2-4); Hematocrit 35.9 % (36-46); Hemoglobin 12.5 g/dL (12.0-16.0); Lymphocytes Absolute Auto 2000 /uL (1100-4500); Lymphocytes Percent Auto 19.1 % (25-40); Mean Corpuscular HGB Conc 34.7 % (30-36); Mean Corpuscular Hemoglobin 29.7 PG (26-34); Mean Corpuscular Volume 85.5 fL (80-100); Monocytes Absolute Auto 600 /uL (0-900); Monocytes Percent Auto 6.1 % (3-14); Neutrophils Absolute Auto 7600 /uL (1500-7000); Neutrophils Percent Auto 73.8 % (50-75); Platelet Count 168 X10^3/uL (150-400); Red Blood Cell Count 4.19 X10^6/uL (4.0-5.2); White Blood Cell Count 10.4 X10^3/uL (4.5-11.0)
[2019-11-20 10:13] LABS: Alanine Aminotransferase 10 IU/L (<35); Albumin 3.4 g/dL (3.5-5.0); Albumin Globulin Ratio 1.1 (1.0-2.8); Alkaline Phosphatase 236 U/L (38-126); Aspartate Aminotransferase 23 IU/L (14-36); BUN Creatinine Ratio 13.8 (6-22); Bilirubin Total 0.3 mg/dL (0.2-1.3); Bilirubin Unconjugated 0.3 mg/dL (0.0-1.1); Blood Urea Nitrogen 8 mg/dL (7-17); Calcium 9.2 mg/dL (8.4-10.2); Carbon Dioxide 21 mmol/L (22-32); Chloride 107 mmol/L (98-107); Estimated Glomerular Filt Rate > 60.0 mL/min (>60); Globulin 3.1 g/dL (1.7-4.1); Glucose 67 mg/dL (70-100); HEMOLYSIS < 15 (0-50); Potassium 3.9 mmol/L (3.4-5.1); Sodium 135 mmol/L (137-145); Total Protein 6.5 g/dL (6.3-8.2); Uric Acid 5.5 mg/dL (2.5-6.2)
--- NOTE | 2019-11-20 10:36 | PM.OBTRLD ---
Visit Information Visit Information Date of evaluation: 11/20/19 Primary OB Provider: Autumn Mcallister Reason for Evaluation: Yes other Comments/Additional reasons for admission: increased blood pressure in office at 37 weeks Vital Signs Vital Signs: repeat blood pressure 141/84 [facility] Medical History (Updated 11/20/19 @ 10:39 by Autumn Mcallister MD) Anemia (Chronic 2005) Chicken pox (Resolved 1995) Eczema (Chronic 1999) Endometriosis (Chronic 2010) Fractures (Resolved 2003) Hemorrhoid (Chronic 2013) Infertility (Acute) Irregular menstrual cycle (Chronic 2010) Irritable bowel syndrome (Chronic 2009) Migraines (Chronic 2007) Ovarian cyst (Chronic 2011) Painful menstrual periods (Chronic 2010) Seasonal allergies (Chronic 2007) Tinnitus (Chronic 2009) Surgical History Anesthesia (Resolved) History of esophagogastroduodenoscopy (EGD) (Resolved 05/21/14) History of knee surgery (Resolved 11/08/14) Status post colonoscopy (Resolved 05/21/14) Family History Father Cancer High cholesterol Brain cancer Seizure Grandfather Heart disease Congestive heart failure Grandmother Cancer Mother Type 2 diabetes mellitus Depression Hypertension Mental health problem Grandfather Hemorrhagic stroke Grandmother Heart disease Heart attack Brother Developmental delay Brother Addiction Other Colon polyps Social History marital status: number of children: 0 household members: spouse pets and animals: Yes (Dogs X 2) education level: college occupational status: employed current occupational exposures/hazards: Yes (Radiology and Fluorscopy ) Smoking Status: Never smoker second hand exposure: No alcohol intake: former substance use type: does not use Objective Labs Result Diagrams: 11/20/19 09:50 11/20/19 09:50 Labs: Laboratory Results - last 24 hr 11/20/19 11/20/19 09:50 09:50 WBC 10.4 RBC 4.19 Hgb 12.5 Hct 35.9 L MCV 85.5 MCH 29.7 MCHC 34.7 RDW 14.0 Plt Count 168 Neut % (Auto) 73.8 Lymph % (Auto) 19.1 L [place] % (Auto) 6.1 Eos % (Auto) 0.6 L Baso % (Auto) 0.4 Neut # (Auto) 7600 H Lymph # (Auto) 2000 [place] # (Auto) 600 Eos # (Auto) 100 Baso # (Auto) 0 Sodium 135 L Potassium 3.9 Chloride 107 Carbon Dioxide 21 L BUN 8 Creatinine 0.58 Estimated GFR > 60.0 BUN/Creatinine Ratio 13.8 Glucose 67 L Uric Acid 5.5 Calcium 9.2 Total Bilirubin 0.3 Conjugated Bilirubin 0.0 Unconjugated Bilirubin 0.3 AST 23 ALT 10 Alkaline Phosphatase 236 H Total Protein 6.5 Albumin 3.4 L Globulin 3.1 Albumin/Globulin Ratio 1.1 Evaluation Evaluation Baseline heart rate: 140 Variability: Moderate (11-25) monitor accelerations: Present monitor decelerations: Absent Contraction Frequency (minutes): 7 Uterine Contraction Intensity: Mild Category of Tracing: I Cervical dilation (cm): 3 Cervical effacement (%): 90 Laboratory results: Laboratory Tests 11/20/19 11/20/19 09:50 09:50 WBC 10.4 RBC 4.19 Hgb 12.5 Hct 35.9 L MCV 85.5 MCH 29.7 MCHC 34.7 RDW 14.0 Plt Count 168 Neut % (Auto) 73.8 Lymph % (Auto) 19.1 L [place] % (Auto) 6.1 Eos % (Auto) 0.6 L Baso % (Auto) 0.4 Neut # (Auto) 7600 H Lymph # (Auto) 2000 [place] # (Auto) 600 Eos # (Auto) 100 Baso # (Auto) 0 Sodium 135 L Potassium 3.9 Chloride 107 Carbon Dioxide 21 L BUN 8 Creatinine 0.58 Estimated GFR > 60.0 BUN/Creatinine Ratio 13.8 Glucose 67 L Uric Acid 5.5 Calcium 9.2 Total Bilirubin 0.3 Conjugated Bilirubin 0.0 Unconjugated Bilirubin 0.3 AST 23 ALT 10 Alkaline Phosphatase 236 H Total Protein 6.5 Albumin 3.4 L Globulin 3.1 Albumin/Globulin Ratio 1.1 Diagnosis, Plan/Disposition Final Diagnosis (1) Hypertension affecting in third trimester: Status: Acute (2) 37 weeks gestation of : Status: Acute Plan/Disposition Plan: Patient with increased blood pressure with only trace of protein on urine dip and PIH labs normal except for alkaline phosphatase slightly elevated. Preeclampsia precautions reviewed with the patient. Follow-up in 3 days. OB Disposition: home
== END 2019-11-20 10:37 | disposition home or self-care (01) ==
LOC: LABOR 10:14 → OB 11-21 10:58
PROVIDERS: PCP Family Medicine; Referring Provider Specialist; Visit Provider Specialist
DX: O16.3 Unspecified maternal hypertension, third trimester (principal); O99.283 Endocrine, nutritional and metabolic diseases complicating pregnancy, third trimester; E28.2 Polycystic ovarian syndrome; Z3A.37 37 weeks gestation of pregnancy
CPT/HCPCS: 36415; 59025; 80053; 80076; 84550; 85025; G0378; G0379

== ENCOUNTER 2019-11-21 19:27 | Inpatient (IN) | payer BC, SELFPAY ==
[2019-11-21 22:05] LABS: Add Manual Diff / Slide Review NO; Basophils Absolute Auto 0 /uL (0-100); Basophils Percent Auto 0.2 % (0-2); Eosinophils Absolute Auto 0 /uL (0-450); Eosinophils Percent Auto 0.2 % (2-4); Hematocrit 37.8 % (36-46); Hemoglobin 12.8 g/dL (12.0-16.0); Lymphocytes Absolute Auto 3300 /uL (1100-4500); Lymphocytes Percent Auto 21.2 % (25-40); Mean Corpuscular HGB Conc 33.9 % (30-36); Mean Corpuscular Hemoglobin 29.1 PG (26-34); Mean Corpuscular Volume 85.8 fL (80-100); Monocytes Absolute Auto 900 /uL (0-900); Monocytes Percent Auto 5.9 % (3-14); Neutrophils Absolute Auto 11400 /uL (1500-7000); Neutrophils Percent Auto 72.5 % (50-75); Platelet Count 175 X10^3/uL (150-400); Red Cell Distribution Width 14.3 % (11.6-14.8); White Blood Cell Count 15.8 X10^3/uL (4.5-11.0)
[2019-11-21 22:10] VITALS: BP 127/70
--- NOTE | 2019-11-21 22:36 | PM.OBHP.1 ---
OB HPI Date/Time Date of admission: 11/21/19 Date Patient Seen: 11/21/19 Time Patient Seen: 22:36 History of Present Condition Chief complaint: OBS : 1 Para: 0 Estimated Date of Delivery: 12/08/19 Estimated Gestational Age (weeks): 37 Narrative: Mychal Mcneil is a 29 year old female admitted in active labor History of Present care: good care, initiated at week # (8), number of visits (9) and pounds weight gain (19) Dating criteria: based on 1st trimester US only Ultrasounds: normal mid trimester US Obstetrical complications: gestational hypertension Preadmission Labs Blood type: O (+) positive -: Antibody screen: negative, GBS status: negative, HBsAG: negative, HIV: negative and RPR/VDLR: negative -: Chlamydia screen: not detected and Gonorrhea screen: not detected -: Rubella: immune and Varicella: immune HCAB: negative Quad screen: Normal 1 hr GTT: 66 Evaluation Evaluation Baseline heart rate: 140 Variability: Moderate (11-25) monitor accelerations: Present monitor decelerations: Absent Contraction Frequency (minutes): 2 Uterine Contraction Intensity: Strong/Firm Category of Tracing: I Cervical dilation (cm): 10 Cervical effacement (%): 100 station: -1 Laboratory results: Laboratory Tests 11/21/19 21:40 WBC 15.8 H D RBC 4.40 Hgb 12.8 Hct 37.8 MCV 85.8 MCH 29.1 MCHC 33.9 RDW 14.3 Plt Count 175 Neut % (Auto) 72.5 Lymph % (Auto) 21.2 L [place] % (Auto) 5.9 Eos % (Auto) 0.2 L Baso % (Auto) 0.2 Neut # (Auto) 79604 H Lymph # (Auto) 3300 [place] # (Auto) 900 Eos # (Auto) 0 Baso # (Auto) 0 PFSH Medical History (Updated 11/20/19 @ 10:39 by Autumn Mcallister MD) Anemia (Chronic 2005) Chicken pox (Resolved 1995) Eczema (Chronic 1999) Endometriosis (Chronic 2010) Fractures (Resolved 2003) Hemorrhoid (Chronic 2013) Infertility (Acute) Irregular menstrual cycle (Chronic 2010) Irritable bowel syndrome (Chronic 2009) Migraines (Chronic 2007) Ovarian cyst (Chronic 2011) Painful menstrual periods (Chronic 2010) Seasonal allergies (Chronic 2007) Tinnitus (Chronic 2009) Surgical History Anesthesia (Resolved) History of esophagogastroduodenoscopy (EGD) (Resolved 05/21/14) History of knee surgery (Resolved 11/08/14) Status post colonoscopy (Resolved 05/21/14) Family History Father Cancer High cholesterol Brain cancer Seizure Grandfather Heart disease Congestive heart failure Grandmother Cancer Mother Type 2 diabetes mellitus Depression Hypertension Mental health problem Grandfather Hemorrhagic stroke Grandmother Heart disease Heart attack Brother Developmental delay Brother Addiction Other Colon polyps Social History marital status: number of children: 0 household members: spouse pets and animals: Yes (Dogs X 2) education level: college occupational status: employed current occupational exposures/hazards: Yes (Radiology and Fluorscopy ) Smoking Status: Never smoker second hand exposure: No alcohol intake: former substance use type: does not use Meds Home Medications and Allergies Home Medications Medication Instructions Recorded Confirmed Type cetirizine 10 mg tablet 10 mg PO DAILY PRN 02/23/19 11/21/19 History prenat.vits,boyd,emd-[id number] 1 tab PO DAILY 04/18/19 11/21/19 History Allergies Allergy/AdvReac Type Severity Reaction Status Date / Time adhesive Allergy Mild SENSITIVE Verified 09/25/19 08:44 SKIN amoxicillin Allergy Mild RASH Verified 09/25/19 08:44 latex Allergy Mild LOCAL Verified 09/25/19 08:44 REDNESS Sulfa (Sulfonamide Allergy Unknown Verified 09/25/19 08:44 Antibiotics) [SULFA (SULFONAMIDE ANTIBIOTICS)] codeine AdvReac Mild VOMITING Verified 09/25/19 08:44 Review of Systems Review of Systems Narrative: Patient denies headaches, scotomata, epigastric pain. She has had good movement. Spontaneous rupture membranes clear fluid ROS: Yes All systems reviewed with the patient and are negative except as otherwise documented Exam Vital Signs (past 8 hours): Current blood pressure 128/89 with some earlier blood pressure diastolics in the 90s, pulse 100 temperature 35.9? 06/09/20 22:10 Blood Pressure 127/70 Narrative Exam Narrative: HEENT exam within normal limits. Lungs are clear to auscultation percussion. Heart is regular rate and rhythm no S3-S4 or murmurs. Abdomen is soft, nontender. Fetus is vertex. Extremities with trace edema and nontender Objective Labs Result Diagrams: 11/21/19 21:40 Labs: Laboratory Results - last 24 hr 11/21/19 21:40 WBC 15.8 H D RBC 4.40 Hgb 12.8 Hct 37.8 MCV 85.8 MCH 29.1 MCHC 33.9 RDW 14.3 Plt Count 175 Neut % (Auto) 72.5 Lymph % (Auto) 21.2 L [place] % (Auto) 5.9 Eos % (Auto) 0.2 L Baso % (Auto) 0.2 Neut # (Auto) 96092 H Lymph # (Auto) 3300 [place] # (Auto) 900 Eos # (Auto) 0 Baso # (Auto) 0 Assessment and Plan Assessment and Plan Assessment and Plan narrative: 37 week gestation in active labor with some increased blood pressures. PIH labs were -2 days ago. Anticipate vaginal delivery
[2019-11-21] MEDS: LACTATED RINGERS 1,000 ML 100 ML IV (23:00)
--- NOTE | 2019-11-22 00:49 | P.PCNOB_ITS ---
Events: Induced HTN Labor & Delivery Delivery date: 11/22/19 Intrapartal events: Prolonged 2nd Stage > 2.5 hours Cervical ripening method: none Induction method: none Delivery monitor: external FHT and external uterine Route of delivery: L&D Laceration Description: Perineal - 2nd Degree Delivery repair: chromic (3 0) Estimated blood loss (mL): 400 Anesthesia type: Local (1% lidocaine 20 cc) Narrative: Patient arrived on Labor and delivery in active labor. Her blood pressures were initially elevated but then improved. She had no signs or symptoms of preeclampsia. heart tones were category 1 throughout 1st stage labor but category 2 with decelerations in slow return to baseline with 2nd stage of labor. This is treated with change in position, IV fluids, O2. The patient delivered spontaneously, over an intact perineum. The viable male infant was placed on maternal abdomen but after stimulation the baby did not cry so the cord was clamped, cut and baby taken to the warmer. Cord pH segment was taken. Followed by cord bloods. Placenta delivered spontaneously, intact, with 3 vessels. There were no cervical or vaginal tears. There is a second-degree perineal tear that was repaired in the usual 2 layer fashion with 3 0 chromic. Both infant mother doing well. [place] Baby 1: gender: Male Presentation: vertex position: Right Occiput Posterior Placenta delivery description: Spontaneous cord vessel description: 3 Vessels score (1 min): 4 score (5 min): 8 Narrative: PH 7.2342 with a pCO2 of 28.6, PO2 of 37 base excess -10, pH 7.257, pCO2 36.2, PO2 30, base excess -11 Plan for aftercare: Routine care
[2019-11-22] MEDS: LIDOCAINE 1% 20 ML (00:58)
[2019-11-22] MEDS: OXYTOCIN 10 UNIT/ML VIAL 20 UNIT (00:58)
[2019-11-22] MEDS: ACETAMINOPHEN 325 MG TABLET 650 MG PO ×4 (01:27→20:08)
[2019-11-22] MEDS: IBUPROFEN 600 MG TABLET PO ×4 (01:27→20:08)
[2019-11-22 05:49] LABS: COVID19 -Nasal RAPID Negative (Negative)
[2019-11-22] MEDS: DERMOPLAST SPRAY 20% 60 ML 1 SPRAY TOP (07:54)
[2019-11-22] MEDS: DOCUSATE 100 MG CAPSULE PO (07:55)
--- NOTE | 2019-11-22 15:58 | PM.OBPN.1 ---
Subjective - OB Subjective Patient comments: incisional pain baby status: doing well feeding status: exclusively breast feeding Date Patient Seen: 11/22/19 Time Patient Seen: 14:00 Interval history: Patient is doing well post vaginal delivery with repair of second-degree tear. Her only complaint is the soreness of the repair. She is ambulatory. Passing gas. Bleeding is appropriate. Breast-feeding well. Patient denies headaches, scotomata, epigastric pain. Exam Vital Signs (past 8 hours): Current blood pressure 135/85 with a range of her blood pressures between 138/90 to 117/70 Narrative Exam Narrative: Abdomen is soft, nontender. Uterus is firm, at U, nontender. Mild lochia. Repair is intact. Extremities with trace edema and nontender. Objective Labs Result Diagrams: 11/21/19 21:40 Labs: Laboratory Results - last 24 hr 11/21/19 11/21/19 11/22/19 21:40 21:40 04:30 WBC 15.8 H D RBC 4.40 Hgb 12.8 Hct 37.8 MCV 85.8 MCH 29.1 MCHC 33.9 RDW 14.3 Plt Count 175 Neut % (Auto) 72.5 Lymph % (Auto) 21.2 L [place] % (Auto) 5.9 Eos % (Auto) 0.2 L Baso % (Auto) 0.2 Neut # (Auto) 32382 H Lymph # (Auto) 3300 [place] # (Auto) 900 Eos # (Auto) 0 Baso # (Auto) 0 COVID-19 PCR Negative Blood Type O Positive Antibody Screen Negative Assessment & Plan Assessment and Plan (1) Vaginal delivery: Status: Acute (2) Hypertension affecting in third trimester: Status: Acute Plan day: 1 plan OB: routine care Comments: Will continue monitor patient's blood pressure and for signs symptoms of preeclampsia. Likely home in a.m. if doing well. Time Spent With Patient Time: Total time spent is greater than 50% in coordination of care (as documented) at patient's floor/unit and/or counseling patient: Time with patient: less than 15 minutes
[2019-11-23] MEDS: IBUPROFEN 600 MG TABLET PO ×2 (02:02→07:45)
[2019-11-23] MEDS: ACETAMINOPHEN 325 MG TABLET 650 MG PO ×2 (02:03→07:46)
[2019-11-23 07:33] LABS: Add Manual Diff / Slide Review NO; Basophils Absolute Auto 0 /uL (0-100); Basophils Percent Auto 0.1 % (0-2); Eosinophils Absolute Auto 100 /uL (0-450); Eosinophils Percent Auto 0.4 % (2-4); Hematocrit 28.8 % (36-46); Hemoglobin 9.8 g/dL (12.0-16.0); Lymphocytes Absolute Auto 2800 /uL (1100-4500); Lymphocytes Percent Auto 19.1 % (25-40); Mean Corpuscular HGB Conc 33.9 % (30-36); Mean Corpuscular Hemoglobin 29.4 PG (26-34); Mean Corpuscular Volume 86.7 fL (80-100); Monocytes Absolute Auto 800 /uL (0-900); Monocytes Percent Auto 5.6 % (3-14); Neutrophils Absolute Auto 10800 /uL (1500-7000); Neutrophils Percent Auto 74.8 % (50-75); Platelet Count 145 X10^3/uL (150-400); Red Blood Cell Count 3.32 X10^6/uL (4.0-5.2); Red Cell Distribution Width 14.1 % (11.6-14.8); White Blood Cell Count 14.5 X10^3/uL (4.5-11.0)
[2019-11-23] MEDS: DOCUSATE 100 MG CAPSULE PO (07:45)
[2019-11-23] MEDS: LANOLIN OINT 7 GM 1 APPLIC TOP (07:45)
--- NOTE | 2019-11-23 09:19 | PM.OBDS.1 ---
Discharge Providers Provider Date of admission: 11/21/19 19:27 Discharge Date: 11/23/19 Primary care physician: Abe Coffey MD Consults: 11/23/19 00:48 Consult to Jewel Setter Routine Comment: Discharge provider: Autumn Mcallister MD Summary Hospital Course Date Patient Seen: 11/23/19 Time Patient Seen: 09:26 Procedures: spontaneous vaginal delivery, repair of second-degree perineal tear Hospital Course: Patient arrived on Labor and delivery in active labor. She had a spontaneous vaginal delivery with repair of second-degree perineal tear. She had had some elevated blood pressures but did not have any further signs or symptoms of preeclampsia. She is breast-feeding without difficulty. She is urinating and ambulating well. Her pain is under control. Peripartum Data Infant Delivery Method: Natural Vaginal Laceration description: Perineal - 2nd Degree Procedures: Spontaneous vaginal delivery with repair of second-degree tear complications: none [place] 1: Gender: Male Disposition of : home Discharge Diagnosis (1) Vaginal delivery: Status: Acute (2) Hypertension affecting in third trimester: Status: Acute Status at Discharge Cognitive/behavioral status at discharge: oriented Functional status at discharge: independent ambulation Overall status at discharge: patient is progressing back to baseline Time Spent with Patient Time attestation: Total time spent providing and/or coordinating discharge services: Time spent: Less than 30 minutes Objective Labs Result Diagrams: 11/23/19 06:46 Labs: Laboratory Results - last 24 hr 11/23/19 06:46 WBC 14.5 H RBC 3.32 L Hgb 9.8 L Hct 28.8 L MCV 86.7 MCH 29.4 MCHC 33.9 RDW 14.1 Plt Count 145 L Neut % (Auto) 74.8 Lymph % (Auto) 19.1 L [place] % (Auto) 5.6 Eos % (Auto) 0.4 L Baso % (Auto) 0.1 Neut # (Auto) 69761 H Lymph # (Auto) 2800 [place] # (Auto) 800 Eos # (Auto) 100 Baso # (Auto) 0 Exam Vital Signs (past 8 hours): Blood pressure 128/61, pulse of 86, temperature 97.8? Narrative Exam Narrative: Abdomen is soft, nontender. Uterus is firm, U -1, nontender. Repair is intact. Extremities without edema and nontender. Patient's blood type is O positive, she is rubella immune, she received the Tdap in the 3rd trimester. Discharge Plan Discharge Plan Patient Disposition: Home Discharge comment: Have patient leaf size picker [id number] iron and stool softener for in anemia and prevent constipation Discharge orders & Medications Prescriptions: Continued cetirizine [Zyrtec] 10 mg tablet 10 mg PO DAILY PRN (Reason: Allergy Symptoms) RF: 0 prenat.vits,boyd,dhk-nftk-uupvy Tablet 1 tab PO DAILY RF: 0 Follow up/Referrals: Autumn Mcallister MD [Physician] - 1 Month ( exam) Abe Coffey MD [Primary Care Provider] - Diet/Activity/Treatments Diet: Regular Activity: Nothing in vagina for 4 weeks Skin/Wound/Dressing Care Report to your healthcare provider any signs of infection, such as:: chills, fever and increased pain Discharge Data Primary Care Provider: Abe Coffey
[2019-11-23 10:25] VITALS: BP 128/61; PULSE 86; RESP 18; TEMP 36.6
== END 2019-11-23 11:50 | disposition home or self-care (01) | DRG 807 ==
PROVIDERS: Admitting Provider Specialist; PCP Family Medicine; Referring Provider Specialist; Visit Provider Specialist
DX: O13.4 Gestational [pregnancy-induced] hypertension without significant proteinuria, complicating childbirth (principal); Z37.0 Single live birth; O63.1 Prolonged second stage (of labor); Z3A.37 37 weeks gestation of pregnancy; O70.1 Second degree perineal laceration during delivery; Z11.59 Encounter for screening for other viral diseases; O99.283 Endocrine, nutritional and metabolic diseases complicating pregnancy, third trimester; E28.2 Polycystic ovarian syndrome
CPT/HCPCS: 36415; 59025; 59050; 59400; 80053; 80076; 84550; 85025; 86850; 86900; 86901; 87635; G0379; J2590

== ENCOUNTER → 2020-04-23 | Outpatient (CLI) | payer BC, SELFPAY | PROVIDERS: PCP Family Medicine; Referring Provider Internal Medicine; Visit Provider Internal Medicine | DX: Z23 Encounter for immunization (principal) | CPT/HCPCS: 90471; 90686 ==

== ENCOUNTER → 2020-05-24 08:08 | Outpatient (CLI) | payer BC, SELFPAY ==
[2020-05-24 08:36] LABS: COVID19 -Nasal RAPID Negative (Negative)
== END ==
PROVIDERS: PCP Family Medicine; Visit Provider Physician Assistant
DX: Z11.59 Encounter for screening for other viral diseases (principal)
CPT/HCPCS: 87635

== ENCOUNTER → 2020-09-20 14:35 | Outpatient (CLI) | payer BC, SELFPAY ==
[2020-09-20] MEDS: COVID-19 VACC, Ad26(JANSSEN)/PF 0.5 ML IM (14:41)
== END ==
PROVIDERS: PCP Family Medicine; Visit Provider Internal Medicine
DX: Z23 Encounter for immunization (principal)
CPT/HCPCS: 0031A; 91303

== ENCOUNTER 2021-01-11 19:31 | Emergency (ER) | payer BC, SELFPAY ==
[2021-01-11 19:35] VITALS: BP 135/88; PULSE 110; RESP 20; TEMP 36.9; O2SAT 100; BMI 25.7
[2021-01-11] MEDS: ONDANSETRON 4 MG/2 ML INJ (19:51)
[2021-01-11] MEDS: SODIUM CHLORIDE 0.9% 1,000 ML 1000 ML IV ×2 (19:52→21:27)
--- NOTE | 2021-01-11 20:23 | DI.US.S_ITS ---
PROCEDURE: US OB <= 14 WEEKS FETUS INDICATIONS: RLQ PAIN; POSSIBLE APPENDICITIS, TORSION OUTSIDE/PRIOR DATING DATA: Last menstrual period (LMP): 11/21/2020. LMP-based estimated date of delivery (MARTHA): 08/28/2021. First dating scan (date and location): 01/11/2021. Estimated date of delivery (MARTHA) from first dating scan: 09/01/2021. TECHNIQUE: Real-time scanning was performed of the fetus and maternal pelvic organs, with image documentation. Endovaginal scanning was also performed to better visualize the fetus and maternal ovaries. COMPARISON: None. FINDINGS: There is a gestational sac in the uterine fundus measuring approximately 2.2 centimeters. There is an embryo within the gestational sac measuring approximately 0.8 centimeters, corresponding to a gestational age of 6 weeks 5 days. heart rate detected at 131 beats per minute. Both ovaries are unremarkable. Corpus luteum cyst noted on the left. IMPRESSION: Single live intrauterine gestation. Ovaries are unremarkable. Dictated by: Abe Clemens M.D. on 01/11/2021 at 21:25 Approved by: Abe Clemens M.D. on 01/11/2021 at 21:27
--- NOTE | 2021-01-11 20:25 | ED.GENADULT ---
HPI - General Adult General Chief complaint: Abdominal Pain Stated complaint: 7 weeks preg vomiting, pain Time Seen by Provider: 01/11/21 19:59 Source: patient Mode of arrival: Ambulatory Limitations: no limitations History of Present Illness HPI narrative: 30-year-old at 7 weeks gestational age presents with right lower quadrant pain. She notes that she has had some mild associated nausea but last night she was significantly dizzy when she woke this morning she was somewhat nauseated but was able to keep some Cheerios down. By lunch of the nausea was increasing and after lunch she began vomiting and has not been able to keep any food down since. She complains of developing right lower quadrant pain that is getting worse. She describes some low pelvic cramping but no vaginal bleeding or discharge. No dysuria no diarrhea or constipation. No fevers, cough, palpitations or chest pain. Related Data Home Medications Medication Instructions Recorded Confirmed cetirizine 10 mg tablet (Zyrtec) 10 mg PO DAILY PRN 02/23/19 03/18/20 prenat.vits,boyd,[id number] 1 tab PO DAILY 04/18/19 03/18/20 Previous Rx's Medication Instructions Recorded norethindrone (contraceptive) 0.35 0.35 mg PO DAILY #28 tab 01/08/20 mg tablet (Ortho Micronor) meclizine 25 mg tablet 25 mg PO DAILY PRN #10 tab 03/18/20 ondansetron HCl 4 mg tablet 4 mg PO Q8H PRN #10 tab 03/18/20 (Zofran) azithromycin 250 mg tablet See Rx Instructions PO .COMPLEX #6 09/21/20 tab cephalexin 500 mg capsule 500 mg PO TID 5 Days #15 cap 01/11/21 metoclopramide HCl 10 mg tablet 10 mg PO Q6H PRN #20 tab 01/11/21 (Reglan) Allergies Allergy/AdvReac Type Severity Reaction Status Date / Time adhesive Allergy Mild SENSITIVE Verified 03/18/20 11:43 SKIN amoxicillin Allergy Mild RASH Verified 03/18/20 11:43 latex Allergy Mild LOCAL Verified 03/18/20 11:43 REDNESS Sulfa (Sulfonamide Allergy Unknown Verified 03/18/20 11:43 Antibiotics) [SULFA (SULFONAMIDE ANTIBIOTICS)] codeine AdvReac Mild VOMITING Verified 03/18/20 11:43 Review of Systems Review of Systems Narrative: Remainder of complete review of systems is otherwise unremarkable except for that included in the HPI. Patient History Medical History Anemia (2005) Chicken pox (1995) Eczema (1999) Endometriosis (2010) Fractures (2003) Hemorrhoid (2013) Hypertension affecting in third trimester Infertility Irregular menstrual cycle (2010) Irritable bowel syndrome (2009) Migraines (2007) Ovarian cyst (2011) Painful menstrual periods (2010) Seasonal allergies (2007) Tinnitus (2009) Surgical History Anesthesia History of esophagogastroduodenoscopy (EGD) (05/21/14) History of knee surgery (11/08/14) Status post colonoscopy (05/21/14) Family History Father Cancer High cholesterol Brain cancer Seizure Grandfather Heart disease Congestive heart failure Grandmother Cancer Mother Type 2 diabetes mellitus Depression Hypertension Mental health problem Grandfather Hemorrhagic stroke Grandmother Heart disease Heart attack Brother Developmental delay Brother Addiction Other Colon polyps Social History marital status: number of children: 0 household members: spouse pets and animals: Yes (Dogs X 2) education level: college occupational status: employed current occupational exposures/hazards: Yes (Radiology and Fluorscopy ) Smoking Status: Never smoker second hand exposure: No alcohol intake: former substance use type: does not use Smoking Status: Never smoker alcohol intake frequency: 0-2 drinks per day Substance Use Type: does not use Exam Narrative Exam Narrative: General: Healthy appearing, in no acute distress. Able to give a complete and coherent history. Well-nourished well-developed HEENT: Moist mucous membranes, normal sclera with reactive pupils, Respiratory: Lungs are clear to auscultation, no wheezing no rales no rhonchi. Full and symmetrical air movement Cardiac: Regular rate and rhythm no murmurs no bruits Abdomen: Moderate tenderness in the right lower quadrant with developing rebound. The tenderness seems more lateral than the right adnexa. Palpation in the left lower quadrant reproduces right lower quadrant pain. Good bowel tones, no flank pain Skin: Warm and dry, no rashes Neurologic: Grossly neurologically intact with no obvious asymmetries or abnormalities Extremities: No trauma, well perfused Psych: Cooperative, appropriate insight and affect Initial Vital Signs Initial Vital Signs: Vital Signs Temperature 98.4 F 01/11/21 19:35 Pulse Rate 110 H 01/11/21 19:35 Respiratory Rate 20 01/11/21 19:35 Blood Pressure 135/88 01/11/21 19:35 Pulse Oximetry 100 01/11/21 19:35 Course Orders Ordered: ED Orders 01/11/21 19:45 Complete Blood Count AUTO DIFF Stat Comprehensive Metabolic Panel Stat Lipase Stat 01/11/21 20:23 US OB <= 14 weeks fetus Stat Urinalysis and Microscopic Stat 01/11/21 21:15 Urine Culture Stat Urine Microscopic Stat Hydromorphone HCl (Hydromorphone 0.5 Mg Inj) 0.5 mg IV Q15MIN PRN PRN Reason: Pain, Last Admin: 01/11/21 20:41 Dose: 0.5 mg Documented by: AMARI Discontinued Medications Sodium Chloride (Normal Saline 0.9%) 1,000 mls @ 1,000 mls/hr IV BOLUS ONE Stop: 01/11/21 20:49 Last Infusion: 01/11/21 21:07 Dose: 0 mls/hr Documented by: Admin: 01/11/21 19:52 Dose: 1,000 mls/hr Documented by: AMARI Sodium Chloride (Normal Saline 0.9%) 1,000 mls @ 2,000 mls/hr IV BOLUS ONE Stop: 01/11/21 20:52 Last Admin: 01/11/21 21:27 Dose: 1,000 mls/hr Documented by: AMARI Metoclopramide HCl (Metoclopramide 10 Mg/2 Ml Inj) 10 mg IV NOW ONE Stop: 01/11/21 20:48 Last Admin: 01/11/21 20:53 Dose: 10 mg Documented by: AMARI Ondansetron HCl (Ondansetron 4 Mg/2 Ml Inj) 4 mg IV NOW ONE Stop: 01/11/21 19:51 Last Admin: 01/11/21 19:53 Dose: Not Given Documented by: AMARI Vital Signs Vital signs: Vital Signs - 8 hr 01/11/21 19:35 Temperature 98.4 F Pulse Rate 110 H Respiratory Rate 20 Blood Pressure 135/88 Pulse Oximetry 100 Medical Decision Making Lab Data Result diagrams: 01/11/21 19:45 01/11/21 19:45 Labs: Lab Results 01/11/21 01/11/21 Range/Units 19:45 19:45 WBC 15.9 H (4.5-11.0) X10^3/uL RBC 4.72 (4.0-5.2) X10^6/uL Hgb 13.6 (12.0-16.0) g/dL Hct 40.3 (36-46) % MCV 85.3 (80-100) fL MCH 28.8 (26-34) PG MCHC 33.7 (30-36) % RDW 13.5 (11.6-14.8) % Plt Count 274 (150-400) X10^3/uL Neut % (Auto) 86.5 H (50-75) % Lymph % (Auto) 9.9 L (25-40) % [place] % (Auto) 3.3 (3-14) % Eos % (Auto) 0.1 L (2-4) % Baso % (Auto) 0.2 (0-2) % Neut # (Auto) 66007 H (3518-4274) /uL Lymph # (Auto) 1600 (0127-1579) /uL [place] # (Auto) 500 (0-900) /uL Eos # (Auto) 0 (0-450) /uL Baso # (Auto) 0 (0-100) /uL Sodium 137 (137-145) mmol/L Potassium 3.8 (3.4-5.1) mmol/L Chloride 108 H (98-107) mmol/L Carbon Dioxide 19 L (22-32) mmol/L BUN 8 (7-17) mg/dL Creatinine 0.40 L (0.52-1.04) mg/dL Estimated GFR > 60.0 (>60) mL/min BUN/Creatinine Ratio 20.0 (6-22) Glucose 104 H (70-100) mg/dL Calcium 9.9 (8.4-10.2) mg/dL Total Bilirubin 0.3 (0.2-1.3) mg/dL AST 29 (14-36) IU/L ALT 13 (<35) IU/L Alkaline Phosphatase 86 (38-126) U/L Total Protein 7.9 (6.3-8.2) g/dL Albumin 4.7 (3.5-5.0) g/dL Globulin 3.2 (1.7-4.1) g/dL Albumin/Globulin Ratio 1.5 (1.0-2.8) Lipase 21 L (23-300) U/L Urine Dip Bedside Urine Glucose Negative Bedside Urine Bilirubin - Negative Bedside Urine Ketone +++ 80 Urine Specific [place] 1.015 Bedside Urine Occult Blood - Negative Bedside Urine pH 8 Bedside Urine Protein - Negative Bedside Urine Urobilinogen - Negative Bedside Urine Nitrite - Negative Bedside Urine Leukocytes + 70 Esterase Point of care testing: Urine Dip Bedside Urine Glucose Negative Bedside Urine Bilirubin - Negative Bedside Urine Ketone +++ 80 Urine Specific [place] 1.015 Bedside Urine Occult Blood - Negative Bedside Urine pH 8 Bedside Urine Protein - Negative Bedside Urine Urobilinogen - Negative Bedside Urine Nitrite - Negative Bedside Urine Leukocytes + 70 Esterase Imaging Data Pelvic ultrasound: Radiologist's Impression: per tech: Viable intrauterine 6 weeks 5 days, no evidence of ectopic or ovarian torsion. No appendix visualized but no sequelae of acute appendicitis appreciated either [facility] Narrative Medical decision making narrative: 30-year-old woman presents with increasing vomiting in general malaise. Urinalysis does suggest urinary tract infection and she will be treated with cephalexin for 5 days. Urine will be cultured. At this point there is no evidence of acute miscarriage, ovarian torsion, ectopic , pelvic inflammatory disease or appendicitis. Will be discharged home with prescription for Reglan as a seem to be more effective for her vomiting than Zofran. Will ask her follow-up with her OBGYN as scheduled and return to the ER if symptoms worsen Discharge Plan Departure Patient Disposition: Home Clinical Impression: Qualifiers: Weeks of gestation: less than 8 weeks Qualified Code(s): Z3A.01 - Less than 8 weeks gestation of Urinary tract infection Qualifiers: Urinary tract infection type: acute cystitis Hematuria presence: without hematuria Qualified Code(s): N30.00 - Acute cystitis without hematuria Nausea & vomiting Qualifiers: Vomiting type: unspecified Vomiting Intractability: non-intractable Qualified Code(s): R11.2 - Nausea with vomiting, unspecified Instructions: DI for Urinary Tract Infection (UTI) Activity Restrictions/Additional Instructions: Thank you for coming in today It looks like your worsening nausea and vomiting symptoms are due to a developing bladder infection. I am going to have you complete a 5 day course of cephalexin For your nausea, I have given you a prescription for Reglan. This is safe in and you noted that Zofran was not all that effective for you. Use the Reglan up to 4 times a day as needed The ultrasound confirms a viable intrauterine fetus with a due date of August 23 2021. There is no evidence for a twisted ovary, ectopic or appendicitis at this time. if you feel worse, please return to the ER Prescriptions: New cephalexin 500 mg capsule 500 mg PO TID 5 Days Qty: 15 RF: 0 metoclopramide HCl [Reglan] 10 mg tablet 10 mg PO Q6H PRN (Reason: nausea and vomiting) Qty: 20 RF: 0 No Action ondansetron HCl [Zofran] 4 mg tablet 4 mg PO Q8H PRN (Reason: nausea and vomiting) Qty: 10 RF: 0 meclizine 25 mg tablet 25 mg PO DAILY PRN (Reason: dizziness) Qty: 10 RF: 0 azithromycin 250 mg tablet See Rx Instructions PO .COMPLEX Qty: 6 RF: 0 norethindrone (contraceptive) [Ortho Micronor] 0.35 mg tablet 0.35 mg PO DAILY Qty: 28 RF: 11 cetirizine [Zyrtec] 10 mg tablet 10 mg PO DAILY PRN (Reason: Allergy Symptoms) RF: 0 prenat.vits,boyd,[id number] Tablet 1 tab PO DAILY RF: 0 Referrals: Abe Coffey MD [Primary Care Provider] -
[2021-01-11 20:36] LABS: Add Manual Diff / Slide Review NO; Basophils Absolute Auto 0 /uL (0-100); Basophils Percent Auto 0.2 % (0-2); Eosinophils Absolute Auto 0 /uL (0-450); Eosinophils Percent Auto 0.1 % (2-4); Hematocrit 40.3 % (36-46); Hemoglobin 13.6 g/dL (12.0-16.0); Lymphocytes Absolute Auto 1600 /uL (1100-4500); Lymphocytes Percent Auto 9.9 % (25-40); Mean Corpuscular HGB Conc 33.7 % (30-36); Mean Corpuscular Hemoglobin 28.8 PG (26-34); Mean Corpuscular Volume 85.3 fL (80-100); Monocytes Absolute Auto 500 /uL (0-900); Monocytes Percent Auto 3.3 % (3-14); Neutrophils Absolute Auto 13700 /uL (1500-7000); Neutrophils Percent Auto 86.5 % (50-75); Platelet Count 274 X10^3/uL (150-400); Red Blood Cell Count 4.72 X10^6/uL (4.0-5.2); Red Cell Distribution Width 13.5 % (11.6-14.8); White Blood Cell Count 15.9 X10^3/uL (4.5-11.0)
[2021-01-11 20:40] LABS: Alanine Aminotransferase 13 IU/L (<35); Albumin 4.7 g/dL (3.5-5.0); Albumin Globulin Ratio 1.5 (1.0-2.8); Alkaline Phosphatase 86 U/L (38-126); Aspartate Aminotransferase 29 IU/L (14-36); Bilirubin Total 0.3 mg/dL (0.2-1.3); Blood Urea Nitrogen 8 mg/dL (7-17); Calcium 9.9 mg/dL (8.4-10.2); Carbon Dioxide 19 mmol/L (22-32); Chloride 108 mmol/L (98-107); Estimated Glomerular Filt Rate > 60.0 mL/min (>60); Globulin 3.2 g/dL (1.7-4.1); Glucose 104 mg/dL (70-100); HEMOLYSIS < 15 (0-50); Lipase 21 U/L (23-300); Potassium 3.8 mmol/L (3.4-5.1); Sodium 137 mmol/L (137-145); Total Protein 7.9 g/dL (6.3-8.2)
[2021-01-11] MEDS: HYDROMORPHONE 0.5 MG INJ IV ×2 (20:41→21:54)
[2021-01-11] MEDS: METOCLOPRAMIDE 10 MG/2 ML INJ IV (20:53)
[2021-01-11 21:30] LABS: RBC Urine None Seen (0-5/HPF)
[2021-01-11 21:51] LABS: Amorphous Sediment Urine 3+; Bacteria Urine Many (>30); Squamous Epithelial Cell Urine 1-5 /HPF (0-5/HPF); WBC Urine 1-5/HPF (0-5/HPF)
[2021-01-11] MEDS: cephALEXin 250 MG CAPSULE 500 MG PO (21:54)
[2021-01-11 21:56] VITALS: PULSE 98; RESP 16; TEMP 37.2; O2SAT 100
--- NOTE | 2021-01-12 08:44 | PC.NURSE ---
received call from patient stating [facility] closed today and requesting scripts to be transferred to [facility]. Dr Crews called in scripts to [facility]. Left a message for patient stating discussed scripts sent to [facility] and left the ED phone number for any further assistance.
== END 2021-01-11 22:11 | disposition home or self-care (01) ==
PROVIDERS: Emergency Provider Emergency Medicine; PCP Family Medicine
DX: O26.891 Other specified pregnancy related conditions, first trimester (principal); N30.00 Acute cystitis without hematuria; R11.2 Nausea with vomiting, unspecified; R10.31 Right lower quadrant pain; R42 Dizziness and giddiness; R10.2 Pelvic and perineal pain; Z3A.01 Less than 8 weeks gestation of pregnancy
CPT/HCPCS: 36415; 76801; 76817; 80053; 81003; 81015; 83690; 85025; 87086; 96361; 96374; 96375; 96376; 99284; J1170; J2405; J2765

== ENCOUNTER 2021-01-12 12:12 | Observation (INO) | payer BC, SELFPAY ==
[2021-01-12] VITALS (8 sets, daily range): BP systolic 104–131; BP diastolic 67–81; PULSE 98–114; RESP 16–20; TEMP 36.7–36.8; O2SAT 99–100; BMI 26.7
[2021-01-12] MEDS: SODIUM CHLORIDE 0.9% 1,000 ML 1000 ML IV (12:31)
[2021-01-12] MEDS: METOCLOPRAMIDE 10 MG/2 ML INJ IV (12:41)
[2021-01-12 12:42] LABS: Add Manual Diff / Slide Review NO; Basophils Absolute Auto 0 /uL (0-100); Basophils Percent Auto 0.2 % (0-2); Eosinophils Absolute Auto 0 /uL (0-450); Hemoglobin 12.7 g/dL (12.0-16.0); Lymphocytes Absolute Auto 1800 /uL (1100-4500); Lymphocytes Percent Auto 14.9 % (25-40); Mean Corpuscular HGB Conc 33.4 % (30-36); Mean Corpuscular Hemoglobin 28.6 PG (26-34); Mean Corpuscular Volume 85.5 fL (80-100); Monocytes Absolute Auto 800 /uL (0-900); Monocytes Percent Auto 6.9 % (3-14); Neutrophils Absolute Auto 9400 /uL (1500-7000); Platelet Count 256 X10^3/uL (150-400); Red Blood Cell Count 4.44 X10^6/uL (4.0-5.2); Red Cell Distribution Width 13.4 % (11.6-14.8); White Blood Cell Count 12.1 X10^3/uL (4.5-11.0)
[2021-01-12 12:52] LABS: Alanine Aminotransferase 13 IU/L (<35); Albumin 4.5 g/dL (3.5-5.0); Albumin Globulin Ratio 1.5 (1.0-2.8); Alkaline Phosphatase 81 U/L (38-126); Aspartate Aminotransferase 21 IU/L (14-36); BUN Creatinine Ratio 12.5 (6-22); Bilirubin Total 0.5 mg/dL (0.2-1.3); Blood Urea Nitrogen 4 mg/dL (7-17); Calcium 9.7 mg/dL (8.4-10.2); Carbon Dioxide 18 mmol/L (22-32); Chloride 110 mmol/L (98-107); Estimated Glomerular Filt Rate > 60.0 mL/min (>60); Glucose 95 mg/dL (70-100); HEMOLYSIS < 15 (0-50); Lipase 34 U/L (23-300); Potassium 3.7 mmol/L (3.4-5.1); Sodium 136 mmol/L (137-145); Total Protein 7.5 g/dL (6.3-8.2)
--- NOTE | 2021-01-12 13:01 | ED.FEMALEGU ---
HPI - Female Genitourinary General Chief complaint: Urogenital-Female Stated complaint: Not able to keep meds down from yesterday Time Seen by Provider: 01/12/21 13:01 Source: patient Mode of arrival: Ambulatory Limitations: no limitations History of Present Illness HPI Narrative: This is a 30-year-old female at 7 weeks gestation with abdominal pain and nausea and vomiting. Patient states last night she had right lower quadrant pain which has somewhat improved but seems to now have migrated to both sides and both sides in her back but is more on the right. Patient states that she has not had fevers. She has had nausea and vomiting and had been able to keep any food down. She was seen here in the emergency department last night. Had IV fluids, Reglan and was able to initially handle oral challenge but after she returned home was unable to tolerate. She had tried oral Zofran as well as Reglan without being able to tolerate. Patient did not denies any vaginal bleeding or discharge. She has had some frequency but no dysuria, urgency or incontinence. No diarrhea constipation. No fevers, no cold cough or congestion. No chest pain or shortness of breath. Patient is otherwise healthy with no other daily medications. No major prior surgeries. She is established with Dr. Mcallister for her care. Related Data Home Medications Medication Instructions Recorded Confirmed cetirizine 10 mg tablet (Zyrtec) 10 mg PO DAILY PRN 02/23/19 03/18/20 prenat.vits,boyd,[id number]-[id number] 1 tab PO DAILY 04/18/19 03/18/20 Previous Rx's Medication Instructions Recorded norethindrone (contraceptive) 0.35 0.35 mg PO DAILY #28 tab 01/08/20 mg tablet ([facility]) meclizine 25 mg tablet 25 mg PO DAILY PRN #10 tab 03/18/20 ondansetron HCl 4 mg tablet 4 mg PO Q8H PRN #10 tab 03/18/20 (Zofran) azithromycin 250 mg tablet See Rx Instructions PO .COMPLEX #6 09/21/20 tab cephalexin 500 mg capsule 500 mg PO TID 5 Days #15 cap 01/11/21 metoclopramide HCl 10 mg tablet 10 mg PO Q6H PRN #20 tab 01/11/21 (Reglan) cephalexin 500 mg capsule 500 mg PO TID #15 cap 01/12/21 metoclopramide HCl 10 mg tablet 10 mg PO Q6H PRN #20 tab 01/12/21 (Reglan) Allergies Allergy/AdvReac Type Severity Reaction Status Date / Time adhesive Allergy Mild SENSITIVE Verified 01/12/21 12:23 SKIN amoxicillin Allergy Mild RASH Verified 01/12/21 12:23 latex Allergy Mild LOCAL Verified 01/12/21 12:23 REDNESS Sulfa (Sulfonamide Allergy Unknown Verified 01/12/21 12:23 Antibiotics) [SULFA (SULFONAMIDE ANTIBIOTICS)] codeine AdvReac Mild VOMITING Verified 01/12/21 12:23 Review of Systems Review of Systems ROS Unobtainable: All systems reviewed & are unremarkable except as noted in HPI and below Patient History Medical History Anemia (2005) Chicken pox (1995) Eczema (1999) Endometriosis (2010) Fractures (2003) Hemorrhoid (2013) Hypertension affecting in third trimester Infertility Irregular menstrual cycle (2010) Irritable bowel syndrome (2009) Migraines (2007) Ovarian cyst (2011) Painful menstrual periods (2010) Seasonal allergies (2007) Tinnitus (2009) Surgical History Anesthesia History of esophagogastroduodenoscopy (EGD) (05/21/14) History of knee surgery (11/08/14) Status post colonoscopy (05/21/14) Family History Father Cancer High cholesterol Brain cancer Seizure Grandfather Heart disease Congestive heart failure Grandmother Cancer Mother Type 2 diabetes mellitus Depression Hypertension Mental health problem Grandfather Hemorrhagic stroke Grandmother Heart disease Heart attack Brother Developmental delay Brother Addiction Other Colon polyps alcohol intake frequency: 0-2 drinks per day Substance Use Type: does not use Exam Narrative Exam Narrative: GENERAL: Alert and oriented x three, female in mild distress. Patient appears pale and does not appear to feel well. HEENT: Head normocephalic, atraumatic, EOMI, pupils reactive, face symmetric, moist mucous membranes NECK: Supple, full range of motion CARDIOVASCULAR: Regular rate and rhythm without murmurs, rubs or gallops. RESPIRATORY: Breath sounds equal bilaterally, no wheezes rales or rhonchi. ABDOMEN: Soft, mild generalized tenderness. Normoactive bowel sounds all 4 quadrants. No guarding or rebound, rigidity, no mass : No CVA tenderness bilaterally. EXTREMITIES: Normal range of motion, no clubbing or edema. Neurovascularly intact NEUROLOGICAL: Cranial nerves II through XII grossly intact. Moving all extremities SKIN: Warm, dry, no petechiae, no rashes or lesions. Initial Vital Signs Initial Vital Signs: Vital Signs Temperature 98.3 F 01/12/21 12:21 Pulse Rate 114 H 01/12/21 12:21 Respiratory Rate 20 01/12/21 12:21 Blood Pressure 131/79 01/12/21 12:21 Pulse Oximetry 99 01/12/21 12:21 Course Orders Ordered: ED Orders 01/12/21 12:24 Complete Blood Count AUTO DIFF Stat Comprehensive Metabolic Panel Stat Lactate (Lactic Acid) Stat Lipase Stat Procalcitonin Stat 01/12/21 13:07 US abdomen complete Stat 01/12/21 13:22 Blood Culture Stat 01/12/21 13:54 Urinalysis and Microscopic Stat 01/12/21 15:55 COVID19 - ADMIT ([employer] swab/PCR) Stat Acetaminophen (Acetaminophen 325 Mg Tablet) 650 mg PO Q6HR PRN PRN Reason: Fever/Mild Pain (1-3) Calcium Carbonate (Calcium Carbonate 500 Mg Tab) 1,000 mg PO Q4HR PRN PRN Reason: Dyspepsia Sodium Chloride (Normal Saline 0.9%) 1,000 mls @ 100 mls/hr IV CONT ROBERTO Last Admin: 01/12/21 16:48 Dose: 100 mls/hr Documented by: DRE Metoclopramide HCl (Metoclopramide 10 Mg/2 Ml Inj) 5 mg IV Q6HR PRN PRN Reason: Nausea And Vomiting Naloxone HCl (Naloxone 0.4 Mg/Ml Vial) 0.2 mg IV Q2MIN PRN PRN Reason: Opiate Reversal Ondansetron HCl (Ondansetron 4 Mg/2 Ml Inj) 4 mg IV Q8HR PRN PRN Reason: Nausea And Vomiting Last Admin: 01/12/21 17:00 Dose: 4 mg Documented by: DRE Oxycodone HCl (Oxycodone 5 Mg/5 Ml Oral Solution) 5 mg PO Q4HR PRN PRN Reason: Pain, Moderate (4-6) Polyethylene Glycol (Polyethylene Glycol 3350 17 Gm Powd.Pack) 17 gm PO BID ROBERTO Promethazine HCl (Promethazine 25 Mg Tablet) 25 mg PO Q4HR PRN PRN Reason: Nausea Last Admin: 01/12/21 17:24 Dose: 25 mg Documented by: DRE Discontinued Medications Sodium Chloride (Normal Saline 0.9%) 1,000 mls @ 1,000 mls/hr IV BOLUS ONE Stop: 01/12/21 13:23 Last Infusion: 01/12/21 13:31 Dose: 0 mls/hr Documented by: Admin: 01/12/21 12:31 Dose: 1,000 mls/hr Documented by: JOVON Sodium Chloride (Normal Saline 0.9%) 1,861.53 mls @ 620.51 mls/hr 30 ml/kg infuse over 3 hr (1861.53 ml) IV NOW ONE Stop: 01/12/21 16:06 Last Infusion: 01/12/21 16:08 Dose: 0 mls/hr Documented by: Admin: 01/12/21 13:32 Dose: 620.51 mls/hr Documented by: SAMANTHA Ceftriaxone Sodium 2,000 mg/ (Sodium Chloride) 100 mls @ 200 mls/hr IV NOW ONE Stop: 01/12/21 13:08 Last Infusion: 01/12/21 14:26 Dose: 0 mls/hr Documented by: Admin: 01/12/21 13:32 Dose: 200 mls/hr Documented by: SAMANTHA Metoclopramide HCl (Metoclopramide 10 Mg/2 Ml Inj) 10 mg IV NOW ONE Stop: 01/12/21 12:34 Last Admin: 01/12/21 12:41 Dose: 10 mg Documented by: JOVON Morphine Sulfate (Morphine 2 Mg/Ml Inj) 2 mg IV NOW ONE Stop: 01/12/21 13:08 Last Admin: 01/12/21 13:45 Dose: 2 mg Documented by: SAMANTHA Consultations Consultation #1: Dr. Turner, accepts for observation. Dr. Turner is covering for Ob, patient is a Dr. Cates patient and after discussion as based on her timing of would potentially be a medicine admit but nocturnal in states she will keep her on her service. Discussed patient was seen here overnight, she returned unable to tolerate any orals at home. Patient continued to be tachycardic even with fluids. Her labs are mildly improved with a white count decreasing from 15-12. Her abdominal exam is reassuring and seems unlikely for an appendicitis. Her urine shows a possible UTI with developing pyelo in a 7 week female and plan for observation, patient received a dose of IV antibiotics and antinausea medication. Vital Signs Vital signs: Vital Signs - 8 hr 01/12/21 12:21 01/12/21 14:07 01/12/21 14:30 Temperature 98.3 F Pulse Rate 114 H 100 H 98 H Respiratory Rate 20 Blood Pressure 131/79 104/67 Pulse Oximetry 99 100 100 01/12/21 15:00 01/12/21 15:30 Temperature Pulse Rate 109 H 101 H Respiratory Rate Blood Pressure 116/76 Pulse Oximetry 100 100 MDM - Female Genitourinary Lab Data Result diagrams: 01/12/21 12:24 01/12/21 12:24 Labs: Lab Results 01/12/21 01/12/21 01/12/21 Range/Units 12:24 12:24 12:24 WBC 12.1 H (4.5-11.0) X10^3/uL RBC 4.44 (4.0-5.2) X10^6/uL Hgb 12.7 (12.0-16.0) g/dL Hct 38.0 (36-46) % MCV 85.5 (80-100) fL MCH 28.6 (26-34) PG MCHC 33.4 (30-36) % RDW 13.4 (11.6-14.8) % Plt Count 256 (150-400) X10^3/uL Neut % (Auto) 78.0 H (50-75) % Lymph % (Auto) 14.9 L (25-40) % [place] % (Auto) 6.9 (3-14) % Eos % (Auto) 0.0 L (2-4) % Baso % (Auto) 0.2 (0-2) % Neut # (Auto) 9400 H (3610-8720) /uL Lymph # (Auto) 1800 (6449-5713) /uL [place] # (Auto) 800 (0-900) /uL Eos # (Auto) 0 (0-450) /uL Baso # (Auto) 0 (0-100) /uL Sodium 136 L (137-145) mmol/L Potassium 3.7 (3.4-5.1) mmol/L Chloride 110 H (98-107) mmol/L Carbon Dioxide 18 L (22-32) mmol/L BUN 4 L (7-17) mg/dL Creatinine 0.32 L (0.52-1.04) mg/dL Estimated GFR > 60.0 (>60) mL/min BUN/Creatinine Ratio 12.5 (6-22) Glucose 95 (70-100) mg/dL Lactate 1.0 (0.7-2.1) mmol/L Calcium 9.7 (8.4-10.2) mg/dL Total Bilirubin 0.5 (0.2-1.3) mg/dL AST 21 (14-36) IU/L ALT 13 (<35) IU/L Alkaline Phosphatase 81 (38-126) U/L Total Protein 7.5 (6.3-8.2) g/dL Albumin 4.5 (3.5-5.0) g/dL Globulin 3.0 (1.7-4.1) g/dL Albumin/Globulin Ratio 1.5 (1.0-2.8) Lipase 34 D (23-300) U/L Procalcitonin 0.03 (<0.5) ng/mL Urine Color Urine Appearance Urine pH (4.5-8.0) Ur Specific [place] (1.000-1.035) Urine Protein (Negative) Urine Glucose (UA) (Negative) g/dL Urine Ketones (NEGATIVE) Urine Occult Blood (Negative) Urine Nitrate (Negative) Urine Bilirubin (NEGATIVE) Urine Urobilinogen (0.2) E.U./dL Ur Leukocyte Esterase (NEGATIVE) Urine RBC (0-5/HPF) Urine WBC (0-5/HPF) Ur Squamous Epith Cells (0-5/HPF) Urine Bacteria (None) Ur Culture Indicated? SARS-CoV-2 (PCR) (Negative) 01/12/21 01/12/21 Range/Units 13:54 15:55 WBC (4.5-11.0) X10^3/uL RBC (4.0-5.2) X10^6/uL Hgb (12.0-16.0) g/dL Hct (36-46) % MCV (80-100) fL MCH (26-34) PG MCHC (30-36) % RDW (11.6-14.8) % Plt Count (150-400) X10^3/uL Neut % (Auto) (50-75) % Lymph % (Auto) (25-40) % [place] % (Auto) (3-14) % Eos % (Auto) (2-4) % Baso % (Auto) (0-2) % Neut # (Auto) (4088-3013) /uL Lymph # (Auto) (8313-3726) /uL [place] # (Auto) (0-900) /uL Eos # (Auto) (0-450) /uL Baso # (Auto) (0-100) /uL Sodium (137-145) mmol/L Potassium (3.4-5.1) mmol/L Chloride (98-107) mmol/L Carbon Dioxide (22-32) mmol/L BUN (7-17) mg/dL Creatinine (0.52-1.04) mg/dL Estimated GFR (>60) mL/min BUN/Creatinine Ratio (6-22) Glucose (70-100) mg/dL Lactate (0.7-2.1) mmol/L Calcium (8.4-10.2) mg/dL Total Bilirubin (0.2-1.3) mg/dL AST (14-36) IU/L ALT (<35) IU/L Alkaline Phosphatase (38-126) U/L Total Protein (6.3-8.2) g/dL Albumin (3.5-5.0) g/dL Globulin (1.7-4.1) g/dL Albumin/Globulin Ratio (1.0-2.8) Lipase (23-300) U/L Procalcitonin (<0.5) ng/mL Urine Color Yellow Urine Appearance Clear Urine pH 6.5 (4.5-8.0) Ur Specific [place] 1.010 (1.000-1.035) Urine Protein Negative (Negative) Urine Glucose (UA) Negative (Negative) g/dL Urine Ketones 3+ H (NEGATIVE) Urine Occult Blood Negative (Negative) Urine Nitrate Negative (Negative) Urine Bilirubin Negative (NEGATIVE) Urine Urobilinogen 0.2 (0.2) E.U./dL Ur Leukocyte Esterase Negative (NEGATIVE) Urine RBC 0-1/hpf (0-5/HPF) Urine WBC 1-5/hpf (0-5/HPF) Ur Squamous Epith Cells 1-5 /hpf (0-5/HPF) Urine Bacteria Moderate (10-30) H (None) Ur Culture Indicated? Cult not indicated SARS-CoV-2 (PCR) Negative (Negative) Imaging Data US - abdomen: Radiologist's Impression: [address] [id number] ReportSigned Patient: Mychal Mcneil MMR#: [id number]: 1990Acct:[id number]/Sex: 30 / FDate of Service: 01/12/21Loc: EDAccession Number: [id number] Procedure: US abdomen complete Ordering Provider: Jessica Crews D.O. PROCEDURE: US ABDOMEN COMPLETE INDICATIONS: PAIN; N/V TECHNIQUE: Real-time scanning was performed of the abdominal and retroperitoneal organs, with image documentation. COMPARISON: None. FINDINGS: Liver: Liver is normal in size and homogeneous in echotexture. Gallbladder: Within normal limits Biliary ducts: Intrahepatic bile ducts are non-dilated. Extrahepatic bile duct caliber measures 3 point mm. Normal is 6-7 mm or less in diameter, or 10 mm or less post-cholecystectomy. Pancreas: Visualized portions of the pancreas are sonographically normal. Spleen: Spleen is normal in size and homogeneous in echotexture. Kidneys: Kidneys are normal in size and echotexture. Right kidney measures 9.7 cm long; left kidney measures 9.8 cm long. No hydronephrosis or nephrolithiasis. No solid masses. Aorta: Visualized aorta is normal in caliber at less than 3 cm. Iliacs: Proximal common iliac arteries are normal in caliber at less than 2.5 cm. IVC: Intrahepatic inferior vena cava is patent. Miscellaneous: No free abdominal fluid. Appendix not seen. No evidence of appendicitis. IMPRESSION: No acute process. Dictated by: Valdemar Pal M.D. on 01/12/2021 at 14:27 Approved by: Valdemar Pal M.D. on 01/12/2021 at 14:27 [facility] Narrative Medical decision making narrative: Female who is at 7 weeks gestation seen last night for right lower quadrant tenderness nausea and vomiting. Patient's right lower quadrant tenderness has decreased although still present and now has bilateral flank pain as well. White count improved from 15-12, she does have a leftward shift. Chemistry show a low CO2, elevated chloride with a BUN of 4 and a creatinine is 0.32. Patient's lipase and LFTs are normal. Procalcitonin is negative. Patient's urine from yesterday was suspicious for infection. Urine culture is currently pending. Was included. Patient had ultrasound looking for appendicitis this was not visualized they did note a to stay small sac in the uterine fundus that was 2.2 cm with an embryo measuring at 6 weeks and 5 days and heart rate of 131 with unremarkable ovaries and a corpus luteum cyst. Patient slightly tachycardic. Patient has not been able to tolerate orals and case was discussed with Dr. Turner who is covering for OB who kindly accepts patient for observation for possible pyelonephritis in the setting of first-trimester . Discharge Plan Departure Patient Disposition: Admitted as Observation Clinical Impression: Pyelonephritis Admit Date/Time: 01/12/21 15:58 Admit Provider: Jeri Turner
--- NOTE | 2021-01-12 13:07 | DI.US.S_ITS ---
PROCEDURE: US ABDOMEN COMPLETE INDICATIONS: PAIN; N/V TECHNIQUE: Real-time scanning was performed of the abdominal and retroperitoneal organs, with image documentation. COMPARISON: None. FINDINGS: Liver: Liver is normal in size and homogeneous in echotexture. Gallbladder: Within normal limits Biliary ducts: Intrahepatic bile ducts are non-dilated. Extrahepatic bile duct caliber measures 3 point mm. Normal is 6-7 mm or less in diameter, or 10 mm or less post-cholecystectomy. Pancreas: Visualized portions of the pancreas are sonographically normal. Spleen: Spleen is normal in size and homogeneous in echotexture. Kidneys: Kidneys are normal in size and echotexture. Right kidney measures 9.7 cm long; left kidney measures 9.8 cm long. No hydronephrosis or nephrolithiasis. No solid masses. Aorta: Visualized aorta is normal in caliber at less than 3 cm. Iliacs: Proximal common iliac arteries are normal in caliber at less than 2.5 cm. IVC: Intrahepatic inferior vena cava is patent. Miscellaneous: No free abdominal fluid. Appendix not seen. No evidence of appendicitis. IMPRESSION: No acute process. Dictated by: Valdemar Pal M.D. on 01/12/2021 at 14:27 Approved by: Valdemar Pal M.D. on 01/12/2021 at 14:27
[2021-01-12 13:09] LABS: Procalcitonin 0.03 ng/mL (<0.5)
[2021-01-12] MEDS: SODIUM CHLORIDE 0.9% 620.51 ML IV (13:32)
[2021-01-12] MEDS: cefTRIAXone 2,000 MG in SODIUM CHLORIDE 0.9% 100 ML 200 ML IV (13:32)
[2021-01-12] MEDS: MORPHINE 2 MG/ML INJ IV (13:45)
[2021-01-12 13:59] LABS: Appearance Urine UA CLEAR; Bilirubin Urine UA NEGATIVE (NEGATIVE); Color Urine UA YELLOW; Glucose Urine UA NEGATIVE (Negative); Ketones Urine UA 3+ (NEGATIVE); Leukocyte Esterase Urine UA NEGATIVE (NEGATIVE); Nitrite Urine UA NEGATIVE (Negative); Occult Blood Urine UA NEGATIVE (Negative); Protein Urine UA NEGATIVE (Negative); Urobilinogen Urine UA 0.2 E.U./dL (0.2)
[2021-01-12 14:10] LABS: pH Urine UA 6.5 (4.5-8.0)
[2021-01-12 14:11] LABS: Bacteria Urine Moderate (10-30); Culture Indicated Urine Cult Not Indicated; RBC Urine 0-1/HPF (0-5/HPF); Squamous Epithelial Cell Urine 1-5 /HPF (0-5/HPF); WBC Urine 1-5/HPF (0-5/HPF)
[2021-01-12] MEDS: SODIUM CHLORIDE 0.9% 1,000 ML 100 ML IV (16:48)
[2021-01-12 17:00] LABS: COVID19 - ADMIT (NP swab/PCR) Negative (Negative)
[2021-01-12] MEDS: ONDANSETRON 4 MG/2 ML INJ IV (17:00)
[2021-01-12] MEDS: PROMETHAZINE 25 MG TABLET PO ×2 (17:24→21:29)
--- NOTE | 2021-01-12 17:29 | PC.NURSE ---
Addendum entered by Nlalely Og R.N. 01/12/21 20:45: Pt reports able to eat a few crackers without emesis. Urine is light yellow. States oral phenergan most effective to manage nausea and will repeat when able to dose again. No other concerns or complaints verbalized by pt. Addendum entered by Nallely Og R.N. 01/12/21 18:54: Continues to refuse offers for pain meds. I'm doing okay right now. Pt able to consume popsicle without emesis. Pt does report feeling a bit better. Color is returning to pt's face; less pale. Resting quietly in bed on left side. Encouraged to call for needs. Original Note: Pt to room 212 from [facility] awake, alert. Pt is pale and c/o nausea and right belly and flank pain 4/10 coming in waves and sharp in nature. Declines tylenol as ordered. Medicated with zofran with little relief and followed by phenergan as ordered. Dr. Turner in to see patient. Pt declines scd's. Rationale for use provided. Encouraged to proceed slowly with clear liquids provided on bedside table. Pt states is able to be independent in room when needing to toilet. IV fluids infusing as ordered to right ac site without difficulty. Encouraged to call for needs.
--- NOTE | 2021-01-12 17:46 | PM.HP.1 ---
History of Present Illness History of Present Illness Date Patient Seen: 01/12/21 Time Patient Seen: 17:15 Chief complaint: Not able to keep meds down from yesterday Narrative: Pt is a 30yo at 6w6d who presented with significant nausea, vomiting, and abdominal pain. The patient reports that yesterday morning she woke feeling very dizzy and lightheaded. When she tried to drink water eating any food that morning she was not able to keep it down and had recurring vomiting. This has persisted since that time. The patient reports that she also developed during the day yesterday significant lower abdominal pain. This was primarily located in her right lower quadrant. It has now spread to me more diffuse across her entire abdomen. She also now reports having bilateral flank pain. She states that prior to yesterday morning she had mild morning sickness, however it was very tolerable. This seemed to come on very suddenly. She denies any recent sick contacts. She does have a 1-year-old son at home. She denies any recent fevers, chills, dysuria. She has had mild constipation this thus far, treated with MiraLax. She denies any recent blood in her urine or stool. She denies any blood in her emesis. The patient denies any recent vaginal bleeding. The patient was evaluated in the emergency department yesterday. Ultrasound revealed an intrauterine without any abnormal findings. UA revealed a likely UTI and the patient was discharged to take p.o. cephalexin at home. She received Reglan and Zofran and was ultimately able to tolerate a small amount of p.o. and was ultimately discharged home. The patient reports that after returning home, the nausea only seemed to worsen. She was unable to keep down any of the antibiotics. She returned due to not tolerating any oral hydration or foods, and being unable to take her medications as prescribed. In the emergency room today, complete abdominal ultrasound was unrevealing. Lab work again showed a very slight elevation white blood cell count but otherwise was normal. The patient received Reglan, normal saline bolus, morphine, and ceftriaxone for treatment of likely urinary tract infection/possible pyelonephritis. Patient History Medical History Anemia (2005) Chicken pox (1995) Eczema (1999) Endometriosis (2010) Fractures (2004) Hemorrhoid (2013) Hypertension affecting in third trimester Infertility Irregular menstrual cycle (2010) Irritable bowel syndrome (2010) Migraines (2008) Ovarian cyst (2012) Painful menstrual periods (2010) Seasonal allergies (2007) Tinnitus (2009) Surgical History Anesthesia History of esophagogastroduodenoscopy (EGD) (05/21/14) History of knee surgery (11/08/14) Status post colonoscopy (05/21/14) Family & Social History Family History Father Cancer High cholesterol Brain cancer Seizure Grandfather Heart disease Congestive heart failure Grandmother Cancer Mother Type 2 diabetes mellitus Depression Hypertension Mental health problem Grandfather Hemorrhagic stroke Grandmother Heart disease Heart attack Brother Developmental delay Brother Addiction Other Colon polyps Social History: household members spouse Prior Living Arrangements House Safety & Behavioral: Feels Safe in Current Yes Environment Been Physically Hurt or No Threatened By a Person Suicidal Ideation Description None Suicide Plan Description No Plan Tobacco & Substance use: Smoking Status Never smoker alcohol intake former alcohol intake frequency 0-2 drinks per day Substance Use Type does not use Meds Home Medications and Allergies Home Medications Medication Instructions Recorded Confirmed Type cetirizine 10 mg tablet (Zyrtec) 10 mg PO DAILY PRN 02/23/19 03/18/20 History prenat.vits,boyd,upu-vpsd-xlygd 1 tab PO DAILY 04/18/19 03/18/20 History norethindrone (contraceptive) 0.35 0.35 mg PO DAILY #28 tab 01/08/20 03/18/20 Rx mg tablet (Ortho Micronor) meclizine 25 mg tablet 25 mg PO DAILY PRN #10 tab 03/18/20 03/18/20 Rx ondansetron HCl 4 mg tablet 4 mg PO Q8H PRN #10 tab 03/18/20 03/18/20 Rx (Zofran) azithromycin 250 mg tablet See Rx Instructions PO .COMPLEX #6 09/21/20 09/21/20 Rx tab cephalexin 500 mg capsule 500 mg PO TID 5 Days #15 cap 01/11/21 Rx metoclopramide HCl 10 mg tablet 10 mg PO Q6H PRN #20 tab 01/11/21 Rx (Reglan) cephalexin 500 mg capsule 500 mg PO TID #15 cap 01/12/21 Rx metoclopramide HCl 10 mg tablet 10 mg PO Q6H PRN #20 tab 01/12/21 Rx (Reglan) Allergies Allergy/AdvReac Type Severity Reaction Status Date / Time adhesive Allergy Mild SENSITIVE Verified 01/12/21 12:23 SKIN amoxicillin Allergy Mild RASH Verified 01/12/21 12:23 latex Allergy Mild LOCAL Verified 01/12/21 12:23 REDNESS Sulfa (Sulfonamide Allergy Unknown Verified 01/12/21 12:23 Antibiotics) [SULFA (SULFONAMIDE ANTIBIOTICS)] codeine AdvReac Mild VOMITING Verified 01/12/21 12:23 Exam Vital Signs (past 8 hours): - 01/12/21 12:21 01/12/21 14:07 01/12/21 14:30 Temperature 98.3 F Pulse Rate 114 H 100 H 98 H Respiratory Rate 20 Blood Pressure 131/79 104/67 Pulse Oximetry 99 100 100 01/12/21 15:00 01/12/21 15:30 01/12/21 16:00 Temperature Pulse Rate 109 H 101 H 109 H Respiratory Rate Blood Pressure 116/76 Pulse Oximetry 100 100 100 01/12/21 16:25 Temperature 98.1 F Pulse Rate 110 H Respiratory Rate 16 Blood Pressure 129/81 Pulse Oximetry 100 Oxygen Delivery Method Room Air Oxygen Flow Rate 0 Narrative Exam Narrative: GEN - alert, cooperative and no distress, appears slightly pale HEENT - normocephalic and atraumatic, sclera white, moist mucus membranes NECK - FROM, no adenopathy, Thyroid is not enlarged, symmetrical and smooth, carotids pulse brisk and no JVD HEART - RRR, S1, S2 normal, no S3 or S4, no murmurs LUNGS - symmetric chest rise, no accessory muscles, clear to auscultation bilaterally ABD - flat, nondistended, normal bowel sounds, soft, diffusely tender to palpation without rebound/guarding/rigidity, no hepatomegaly, splenomegaly or masses, mild bilateral CVA tenderness EXT - no cyanosis, clubbing or edema SKIN - no rashes or suspicious lesions NEURO - no gross deficits Objective Labs Result Diagrams: 01/12/21 12:24 01/12/21 12:24 Labs: Laboratory Results - last 24 hr 01/12/21 01/12/21 01/12/21 12:24 12:24 12:24 WBC 12.1 H RBC 4.44 Hgb 12.7 Hct 38.0 MCV 85.5 MCH 28.6 MCHC 33.4 RDW 13.4 Plt Count 256 Neut % (Auto) 78.0 H Lymph % (Auto) 14.9 L [place] % (Auto) 6.9 Eos % (Auto) 0.0 L Baso % (Auto) 0.2 Neut # (Auto) 9400 H Lymph # (Auto) 1800 [place] # (Auto) 800 Eos # (Auto) 0 Baso # (Auto) 0 Sodium 136 L Potassium 3.7 Chloride 110 H Carbon Dioxide 18 L BUN 4 L Creatinine 0.32 L Estimated GFR > 60.0 BUN/Creatinine Ratio 12.5 Glucose 95 Lactate 1.0 Calcium 9.7 Total Bilirubin 0.5 AST 21 ALT 13 Alkaline Phosphatase 81 Total Protein 7.5 Albumin 4.5 Globulin 3.0 Albumin/Globulin Ratio 1.5 Lipase 34 D Procalcitonin 0.03 Urine Color Urine Appearance Urine pH Ur Specific [place] Urine Protein Urine Glucose (UA) Urine Ketones Urine Occult Blood Urine Nitrate Urine Bilirubin Urine Urobilinogen Ur Leukocyte Esterase Urine RBC Urine WBC Ur Squamous Epith Cells Urine Bacteria Ur Culture Indicated? SARS-CoV-2 (PCR) 01/12/21 01/12/21 13:54 15:55 WBC RBC Hgb Hct MCV MCH MCHC RDW Plt Count Neut % (Auto) Lymph % (Auto) [place] % (Auto) Eos % (Auto) Baso % (Auto) Neut # (Auto) Lymph # (Auto) [place] # (Auto) Eos # (Auto) Baso # (Auto) Sodium Potassium Chloride Carbon Dioxide BUN Creatinine Estimated GFR BUN/Creatinine Ratio Glucose Lactate Calcium Total Bilirubin AST ALT Alkaline Phosphatase Total Protein Albumin Globulin Albumin/Globulin Ratio Lipase Procalcitonin Urine Color Yellow Urine Appearance Clear Urine pH 6.5 Ur Specific [place] 1.010 Urine Protein Negative Urine Glucose (UA) Negative Urine Ketones 3+ H Urine Occult Blood Negative Urine Nitrate Negative Urine Bilirubin Negative Urine Urobilinogen 0.2 Ur Leukocyte Esterase Negative Urine RBC 0-1/hpf Urine WBC 1-5/hpf Ur Squamous Epith Cells 1-5 /hpf Urine Bacteria Moderate (10-30) H Ur Culture Indicated? Cult not indicated SARS-CoV-2 (PCR) Negative Assessment & Plan Assessment & Plan narrative: 30yo at 6w6d here with recurrent nausea and vomiting, and diffuse abdominal pain with mild CVA tenderness. No peritoneal signs to suggest appendicitis, and abdominal ultrasound unrevealing. U/A yesterday suggestive of UTI, causing concern for possible pyelonephritis with CVA tenderness, however pt is afebrile, WBC count only minimally elevated, and U/A today - despite not tolerating PO antibiotics - without evidence of infection. No evidence of gallbladder pathology on ultrasound. Pain not consistent with pancreatitis. Certainly possible is gastroenteritis, with supportive care indicated. Could also represent hyperemesis, with abdominal pain from recurrent vomiting. - Supportive care with mIVF overnight - Reglan, Zofran, Phenergan PRN for nausea/vomiting - Ceftriaxone given in the ED, await final urine culture results from yesterday (currently no growth) and blood cultures. Will not schedule repeat antibiotics at this time. - Continue Miralax for baseline constipation - Continue to monitor for evolution of symptoms which could reveal a more clear etiology - Tylenol and Oxycodone PRN for pain
[2021-01-13] VITALS: BP 113/70; PULSE 114; RESP 16; TEMP 36.8; O2SAT 100
[2021-01-13] MEDS: PROMETHAZINE 25 MG TABLET PO (03:16)
[2021-01-13 03:18] VITALS: BP 113/73; PULSE 102; RESP 16; TEMP 37.1; O2SAT 97
[2021-01-13] MEDS: SODIUM CHLORIDE 0.9% 1,000 ML 100 ML IV (03:18)
[2021-01-13 08:00] VITALS: BP 122/66; PULSE 95; RESP 16; TEMP 36.3; O2SAT 99
[2021-01-13] MEDS: ONDANSETRON 4 MG/2 ML INJ IV (08:32)
--- NOTE | 2021-01-13 10:19 | P.DS_ITS ---
History of Present Illness History of Present Illness Chief complaint: Not able to keep meds down from yesterday Narrative: Pt is a 30yo at 6w6d who presented with significant nausea, vomiting, and abdominal pain. The patient reports that yesterday morning she woke feeling very dizzy and lightheaded. When she tried to drink water eating any food that morning she was not able to keep it down and had recurring vomiting. This has persisted since that time. The patient reports that she also developed during the day yesterday significant lower abdominal pain. This was primarily located in her right lower quadrant. It has now spread to me more diffuse across her entire abdomen. She also now reports having bilateral flank pain. She states that prior to yesterday morning she had mild morning sickness, however it was very tolerable. This seemed to come on very suddenly. She denies any recent sick contacts. She does have a 1-year-old son at home. She denies any recent fevers, chills, dysuria. She has had mild constipation this thus far, treated with MiraLax. She denies any recent blood in her urine or stool. She denies any blood in her emesis. The patient denies any recent vaginal bleeding. The patient was evaluated in the emergency department yesterday. Ultrasound revealed an intrauterine without any abnormal findings. UA revealed a likely UTI and the patient was discharged to take p.o. cephalexin at home. She received Reglan and Zofran and was ultimately able to tolerate a small amount of p.o. and was ultimately discharged home. The patient reports that after returning home, the nausea only seemed to worsen. She was unable to keep down any of the antibiotics. She returned due to not tolerating any oral hydration or foods, and being unable to take her medications as prescribed. In the emergency room today, complete abdominal ultrasound was unrevealing. Lab work again showed a very slight elevation white blood cell count but otherwise was normal. The patient received Reglan, normal saline bolus, morphine, and ceftriaxone for treatment of likely urinary tract infection/possible pyelonephritis. Discharge Providers Provider Date of admission: 01/12/21 15:58 Discharge Date: 01/13/21 Primary care physician: Abe Coffey MD Discharge provider: Jeri Turner MD Summary Hospital Course Hospital Course: The pt was admitted with recurrent vomiting and abdominal pain. She received phenergan, zofran, and reglan with improvement in her nausea/vomiting primarily with the phenergan. She received IVF overnight. Initial concern for pyelonephritis was shown to be unlikely with negative urine culture. The pts symptoms were most likely due to a viral gastroenteritis vs hyperemesis. The pts symptoms had improved significantly at the time of discharge. She was discharged home with PO antiemetics. She has fu scheduled with her primary OB next week. Status at Discharge Cognitive/behavioral status at discharge: oriented Functional status at discharge: independent ambulation Overall status at discharge: patient is progressing back to baseline Exam Vital Signs (past 8 hours): - 01/13/21 03:18 01/13/21 08:00 Temperature 98.7 F 97.3 F L Pulse Rate 102 H 95 H Respiratory Rate 16 16 Blood Pressure 113/73 122/66 Pulse Oximetry 97 99 Oxygen Delivery Method Room Air Oxygen Flow Rate 0 Narrative Exam Narrative: Gen: NAD, sitting comfortably in bed, appears well CV: RRR, no murmurs resp: Clear to auscultation bilaterally Abd: soft, nontender, nondistended, nontender Ext: no edema Objective Labs Result Diagrams: 01/12/21 12:24 01/12/21 12:24 Labs: Laboratory Results - last 24 hr 01/12/21 01/12/21 01/12/21 12:24 12:24 12:24 WBC 12.1 H RBC 4.44 Hgb 12.7 Hct 38.0 MCV 85.5 MCH 28.6 MCHC 33.4 RDW 13.4 Plt Count 256 Neut % (Auto) 78.0 H Lymph % (Auto) 14.9 L [place] % (Auto) 6.9 Eos % (Auto) 0.0 L Baso % (Auto) 0.2 Neut # (Auto) 9400 H Lymph # (Auto) 1800 [place] # (Auto) 800 Eos # (Auto) 0 Baso # (Auto) 0 Sodium 136 L Potassium 3.7 Chloride 110 H Carbon Dioxide 18 L BUN 4 L Creatinine 0.32 L Estimated GFR > 60.0 BUN/Creatinine Ratio 12.5 Glucose 95 Lactate 1.0 Calcium 9.7 Total Bilirubin 0.5 AST 21 ALT 13 Alkaline Phosphatase 81 Total Protein 7.5 Albumin 4.5 Globulin 3.0 Albumin/Globulin Ratio 1.5 Lipase 34 D Procalcitonin 0.03 Urine Color Urine Appearance Urine pH Ur Specific [place] Urine Protein Urine Glucose (UA) Urine Ketones Urine Occult Blood Urine Nitrate Urine Bilirubin Urine Urobilinogen Ur Leukocyte Esterase Urine RBC Urine WBC Ur Squamous Epith Cells Urine Bacteria Ur Culture Indicated? SARS-CoV-2 (PCR) 01/12/21 01/12/21 13:54 15:55 WBC RBC Hgb Hct MCV MCH MCHC RDW Plt Count Neut % (Auto) Lymph % (Auto) [place] % (Auto) Eos % (Auto) Baso % (Auto) Neut # (Auto) Lymph # (Auto) [place] # (Auto) Eos # (Auto) Baso # (Auto) Sodium Potassium Chloride Carbon Dioxide BUN Creatinine Estimated GFR BUN/Creatinine Ratio Glucose Lactate Calcium Total Bilirubin AST ALT Alkaline Phosphatase Total Protein Albumin Globulin Albumin/Globulin Ratio Lipase Procalcitonin Urine Color Yellow Urine Appearance Clear Urine pH 6.5 Ur Specific [place] 1.010 Urine Protein Negative Urine Glucose (UA) Negative Urine Ketones 3+ H Urine Occult Blood Negative Urine Nitrate Negative Urine Bilirubin Negative Urine Urobilinogen 0.2 Ur Leukocyte Esterase Negative Urine RBC 0-1/hpf Urine WBC 1-5/hpf Ur Squamous Epith Cells 1-5 /hpf Urine Bacteria Moderate (10-30) H Ur Culture Indicated? Cult not indicated SARS-CoV-2 (PCR) Negative PFSH Medical History Anemia (2005) Chicken pox (1995) Eczema (1999) Endometriosis (2010) Fractures (2003) Hemorrhoid (2013) Hypertension affecting in third trimester Infertility Irregular menstrual cycle (2010) Irritable bowel syndrome (2009) Migraines (2007) Ovarian cyst (2011) Painful menstrual periods (2010) Seasonal allergies (2007) Tinnitus (2009) Surgical History Anesthesia History of esophagogastroduodenoscopy (EGD) (05/21/14) History of knee surgery (11/08/14) Status post colonoscopy (05/21/14) Family History Father Cancer High cholesterol Brain cancer Seizure Grandfather Heart disease Congestive heart failure Grandmother Cancer Mother Type 2 diabetes mellitus Depression Hypertension Mental health problem Grandfather Hemorrhagic stroke Grandmother Heart disease Heart attack Brother Developmental delay Brother Addiction Other Colon polyps Social History marital status: number of children: 0 household members: spouse pets and animals: Yes (Dogs X 2) education level: college occupational status: employed current occupational exposures/hazards: Yes (Radiology and Fluorscopy ) Smoking Status: Never smoker second hand exposure: No alcohol intake: former substance use type: does not use Discharge Plan Discharge Plan Patient Disposition: Home Discharge orders & Medications Prescriptions: New promethazine 25 mg Tablet 25 mg PO Q4HR PRN (Reason: Nausea) Qty: 30 RF: 0 Continued meclizine 25 mg tablet 25 mg PO DAILY PRN (Reason: dizziness) Qty: 10 RF: 0 cetirizine [Zyrtec] 10 mg tablet 10 mg PO DAILY PRN (Reason: Allergy Symptoms) RF: 0 prenat.vits,boyd,pdc-yctw-trgfm Tablet 1 tab PO DAILY RF: 0 ondansetron HCl [Zofran] 4 mg tablet 4 mg PO Q8H PRN (Reason: nausea and vomiting) Qty: 30 RF: 0 metoclopramide HCl [Reglan] 10 mg tablet 10 mg PO Q6H PRN (Reason: nausea and vomiting) Qty: 30 RF: 0 Discontinued azithromycin 250 mg tablet See Rx Instructions PO .COMPLEX Qty: 6 RF: 0 norethindrone (contraceptive) [Ortho Micronor] 0.35 mg tablet 0.35 mg PO DAILY Qty: 28 RF: 11 cephalexin 500 mg capsule 500 mg PO TID 5 Days Qty: 15 RF: 0 cephalexin 500 mg capsule 500 mg PO TID Qty: 15 RF: 0 metoclopramide HCl [Reglan] 10 mg tablet 10 mg PO Q6H PRN (Reason: nausea and vomiting) Qty: 20 RF: 0 Follow up/Referrals: Abe Coffey MD [Primary Care Provider] - Diet/Activity/Treatments Diet: Diet as Tolerated and Regular Visit Report/Discharge Packet Instructions: DI for Urinary Tract Infection (UTI), Promethazine (By mouth) Visit Report Forms: Patient Portal/API, Stroke Signs & Symptoms Discharge Data Primary Care Provider: Abe Coffey Attending Provider: Jeri Turner Admit Date/Time: 01/12/21 15:58 Discharges patient from system. Discharge Date/Time: 01/13/21 11:15
--- NOTE | 2021-01-13 11:34 | PC.NURSE ---
Went over dc instructions and medications with patient, questions answered. RX sent to [facility]. Patient taken via wc to vehicle driven by spouse,patient had all belongings.
--- NOTE | 2021-01-13 12:57 | CM.DANOTE ---
DCP/Brief: Reviewed chart. Patient is a 30yr female admitted to [facility] with n/v. PCP is Dr. Coffey and primary payor is 1)[facility]. Attempted to meet with patient to confirm d/c plan. Patient had already discharged home at time of visit. P: Home DONAL Thayer Discharge Planning/Care Management CM Discharge Assessment Start: 01/13/21 12:50 Freq: Status: Active Protocol: Document 01/13/21 12:52 KJS (Rec: 01/13/21 12:57 KJS [id number]) Discharge Planning Assessment Assigned [employer] Feller DONAL Thayer Contact Information Rosana Mcneil (Mother) ph# Advance Directives? No History Provided By Medical Record Prior Living Arrangements House Household Members spouse Type of transporation used prior to Drives own vehicle admit Independent with ADL's Yes Is patient alert and oriented? Yes Discharge Plan Home Transportation Arrangement Family to provide transport Referrals Initiated None needed Review Status In Process Next Review Type Continued Stay Review
== END 2021-01-13 11:15 | disposition home or self-care (01) ==
LOC: ED 15:44 → AC 15:59
PROVIDERS: Admitting Provider Family Medicine; Emergency Provider Emergency Medicine; PCP Family Medicine; Referring Provider Emergency Medicine; Visit Provider Family Medicine
DX: R10.84 Generalized abdominal pain (principal); O21.9 Vomiting of pregnancy, unspecified; Z3A.01 Less than 8 weeks gestation of pregnancy; Z20.822 Contact with and (suspected) exposure to COVID-19
CPT/HCPCS: 36415; 36592; 76700; 80053; 81001; 83605; 83690; 84145; 85025; 87040; 87635; 96361; 96365; 96375; 96376; 99217; 99219; 99284; C9803; G0378; J0696; J2270; J2405; J2765

== ENCOUNTER → 2021-01-21 17:29 | Outpatient (CLI) | payer BC, SELFPAY ==
[2021-01-12 17:16] VITALS: BMI 26.7
[2021-01-21 18:08] LABS: Add Manual Diff / Slide Review NO; Basophils Absolute Auto 0 /uL (0-100); Basophils Percent Auto 0.2 % (0-2); Eosinophils Absolute Auto 100 /uL (0-450); Eosinophils Percent Auto 0.8 % (2-4); Hematocrit 36.3 % (36-46); Hemoglobin 12.3 g/dL (12.0-16.0); Lymphocytes Absolute Auto 2500 /uL (1100-4500); Lymphocytes Percent Auto 23.3 % (25-40); Mean Corpuscular HGB Conc 33.8 % (30-36); Mean Corpuscular Volume 85.9 fL (80-100); Monocytes Absolute Auto 800 /uL (0-900); Monocytes Percent Auto 7.1 % (3-14); Neutrophils Absolute Auto 7500 /uL (1500-7000); Neutrophils Percent Auto 68.6 % (50-75); Platelet Count 265 X10^3/uL (150-400); Red Blood Cell Count 4.22 X10^6/uL (4.0-5.2); Red Cell Distribution Width 13.1 % (11.6-14.8); White Blood Cell Count 10.9 X10^3/uL (4.5-11.0)
[2021-01-21 18:18] LABS: Appearance Urine UA CLOUDY; Bilirubin Urine UA NEGATIVE (NEGATIVE); Color Urine UA YELLOW; Glucose Urine UA NEGATIVE (Negative); Ketones Urine UA 1+ (NEGATIVE); Leukocyte Esterase Urine UA NEGATIVE (NEGATIVE); Nitrite Urine UA NEGATIVE (Negative); Occult Blood Urine UA NEGATIVE (Negative); Protein Urine UA NEGATIVE (Negative); Specific Gravity Urine UA 1.015 (1.000-1.035); Urobilinogen Urine UA 0.2 E.U./dL (0.2)
[2021-01-22 06:10] LABS: RPR Screen Non Reactive (Non Reactive)
[2021-01-22 07:35] LABS: Varicella IgG Antibody 1479 index (Immune >165)
[2021-01-23 12:21] LABS: Hepatitis B Surface Antigen NEGATIVE s/c (NEGATIVE)
[2021-01-23 13:12] LABS: HIV 1 & 2 Ab/Ag 4th Gen Combo NEGATIVE (NEGATIVE); Hep C Virus Ab w/Reflex Quant NEGATIVE s/c (NEGATIVE)
== END ==
PROVIDERS: PCP Family Medicine; Referring Provider Specialist; Visit Provider Specialist
DX: Z34.81 Encounter for supervision of other normal pregnancy, first trimester (principal)
CPT/HCPCS: 36415; 80055; 81003; 86787; 86803; 86850; 86900; 86901; 87086; 87389

== ENCOUNTER → 2021-03-21 11:54 | Outpatient (CLI) | payer BC, SELFPAY ==
[2021-01-12 17:16] VITALS: BMI 26.7
[2021-03-21 14:10] LABS: COVID19 -Nasal RAPID Negative (Negative)
== END ==
PROVIDERS: PCP Family Medicine; Visit Provider Nurse Practitioner
DX: Z20.822 Contact with and (suspected) exposure to COVID-19 (principal); J02.9 Acute pharyngitis, unspecified
CPT/HCPCS: 87635

== ENCOUNTER → 2021-03-25 10:52 | Outpatient (CLI) | payer BC, SELFPAY ==
[2021-01-12 17:16] VITALS: BMI 26.7
[2021-03-28 18:48] LABS: AFP, Serum 39.4 ng/mL (.); Estriol, Free 1.51 ng/mL (.); Inhibin A, Dimeric 173.07 pg/mL (.); Inhibin A, MoM 1.04 (.); Maternal Ethnicity Caucasian (.); Maternal Weight 136 lbs (.); Number of Fetuses No (.); OSBR Risk 1 IN 10000 (.); Results Report (.); Test Results *Screen Negative* (.); hCG, MoM 1.29 (.); hCG, Serum 41872 mIU/mL (.)
== END ==
PROVIDERS: PCP Family Medicine; Referring Provider Specialist; Visit Provider Specialist
DX: Z34.82 Encounter for supervision of other normal pregnancy, second trimester (principal); Z36.0 Encounter for antenatal screening for chromosomal anomalies; Z3A.17 17 weeks gestation of pregnancy
CPT/HCPCS: 36415; 82105; 82677; 84702; 86336

== ENCOUNTER → 2021-04-14 14:03 | Outpatient (CLI) | payer BC, SELFPAY ==
[2021-01-12 17:16] VITALS: BMI 26.7
--- NOTE | 2021-04-14 14:03 | DI.US.S_ITS ---
PROCEDURE: US OB >= 14 WEEKS FETUS INDICATIONS: ANATOMY OUTSIDE/PRIOR DATING DATA: Last menstrual period (LMP): 11/21/2020. LMP-based estimated date of delivery (MARTHA): 08/28/2021 First dating scan (date and location): 01/11/2021 Estimated date of delivery (MARTHA) from first dating scan: 09/01/2021 TECHNIQUE: Real-time scanning was performed of the fetus, with image documentation and biometric measurements. COMPARISON: [facility], , OB >= 14 WEEKS FETUS, 03/25/2021, 10:46. FINDINGS: General: A single living intrauterine gestation is present. Presentation: Vertex. Placenta: Placental position is anterior, without previa. Amniotic fluid index: 15.4 cm, normal range is 5-24 cm. heart rate: 136 beats per minute. Maternal cervical canal: 3.2 cm long. Normal lower limit is 2.5 cm. biometrics: Biparietal diameter: 4.7 cm, 20 weeks, 2 days. Head circumference: 17.5 cm, 20 weeks, 0 day. Abdominal circumference: 14.8 cm, 20 weeks, 0 day. Femur length: 3.3 cm, 20 weeks, 2 days. Estimated gestational age from initial scan: 20 weeks, 0 day Composite gestational age from present scan: 20 weeks, 1 day Estimated weight and percentile: 334 grams, 53 percent Measurement variability for biometric dating: +/- 7 days from 14 weeks to 15 weeks 6 days gestation, +/- 10 days from 16 weeks to 21 weeks 6 days gestation, +/- 2 weeks from 22 weeks to 27 weeks 6 days gestation, +/- 3 weeks for 28 weeks gestation or later. weight reference: 4500 g or EFW >90/95% is considered macrosomia or large for gestational age. EFW <10% is small for gestational age. EFW 5% or less is considered intra-uterine growth restriction. Anatomic survey: Neuro: Ventricles are non-dilated at less than 10 mm. Cisterna magna is normal at 3-11 mm. Cerebellum is normal in size and morphology. Nuchal skin fold: Normal at less than 6 mm between 14-21 weeks gestational age. Face: Nose and lips, facial profile are normal. Spine: No evidence for spina bifida. Heart: 4-chambered heart is present, with normal ventricular outflow tracts. Diaphragm: Diaphragm is intact. Stomach: Left-sided stomach is present. Kidneys: No hydronephrosis. Normal is less than 5 mm in 2nd trimester, less than 7 mm in 3rd trimester. Cord: 3-vessel cord has orthotopic insertion. Bladder: Normal in size. Extremities: All 4 extremities identified. IMPRESSION: 1. Single live intrauterine with fetus in vertex presentation. heart rate is 136 beats per minute. Normal growth. Normal amount of amniotic fluid. 2. Normal anatomic survey. Dictated by: Piotr Rey M.D. on 04/14/2021 at 15:42 Approved by: Piotr Rey M.D. on 04/14/2021 at 15:44
== END ==
PROVIDERS: PCP Family Medicine; Referring Provider Specialist; Visit Provider Specialist
DX: Z34.82 Encounter for supervision of other normal pregnancy, second trimester (principal); Z3A.20 20 weeks gestation of pregnancy
CPT/HCPCS: 76811

== ENCOUNTER → 2021-05-19 10:45 | Outpatient (CLI) | payer BC, SELFPAY ==
[2021-01-12 17:16] VITALS: BMI 26.7
[2021-05-19 13:13] LABS: Hematocrit 31.3 % (36-46)
[2021-05-19 13:42] LABS: GTT (PREG) 1 Hour PP 50gm Dose 97 mg/dL (76-139)
== END ==
PROVIDERS: PCP Family Medicine; Referring Provider Specialist; Visit Provider Specialist
DX: Z13.1 Encounter for screening for diabetes mellitus (principal)
CPT/HCPCS: 36415; 82950; 85014; 85018

== ENCOUNTER → 2021-05-21 11:09 | Outpatient (CLI) | payer BC, SELFPAY ==
[2021-01-12 17:16] VITALS: BMI 26.7
[2021-05-22 07:31] LABS: HSV 2 IGG AB < 0.91 index (0.00-0.90); HSV1IGG < 0.91 index (0.00-0.90)
[2021-05-22 17:29] LABS: HIV 1 & 2 Ab/Ag 4th Gen Combo NEGATIVE (NEGATIVE); Hep C Virus Ab w/Reflex Quant NEGATIVE s/c (NEGATIVE)
[2021-05-24 08:30] LABS: Chlamydia trachomatis Negative (Negative); Mycoplasma genitalium Negative (Negative); Neisseria gonorrhoeae Negative (Negative)
== END ==
PROVIDERS: PCP Family Medicine; Referring Provider Specialist; Visit Provider Specialist
DX: Z20.2 Contact with and (suspected) exposure to infections with a predominantly sexual mode of transmission (principal); Z11.3 Encounter for screening for infections with a predominantly sexual mode of transmission
CPT/HCPCS: 36415; 86695; 86696; 86803; 87389; 87491; 87563; 87591

== ENCOUNTER 2021-06-27 16:53 | Emergency (ER) | payer BC, SELFPAY ==
[2021-01-12 17:16] VITALS: BMI 26.7
[2021-06-27] VITALS (15 sets, daily range): BP systolic 101–136; BP diastolic 58–95; PULSE 111–139; RESP 9–31; TEMP 37.3; O2SAT 96–100; BMI 27.9
[2021-06-27] MEDS: SODIUM CHLORIDE 0.9% 1,000 ML 1000 ML IV ×2 (17:00→19:37)
[2021-06-27 17:12] LABS: COVID19 -Nasal RAPID POSITIVE (Negative)
--- NOTE | 2021-06-27 17:24 | PC.NURSE ---
pt states her heart started racing and has not stopped, pt states it has done this before but would stop.,pt denies any n/v states she has been drinking plenty of fluids. pt states the baby is moving as per normal, no chest pain
[2021-06-27 17:28] LABS: Add Manual Diff / Slide Review NO; Basophils Absolute Auto 0 /uL (0-100); Basophils Percent Auto 0.3 % (0-2); Eosinophils Absolute Auto 0 /uL (0-450); Eosinophils Percent Auto 0.3 % (2-4); Hematocrit 31.8 % (36-46); Lymphocytes Absolute Auto 500 /uL (1100-4500); Lymphocytes Percent Auto 7.9 % (25-40); Mean Corpuscular HGB Conc 34.7 % (30-36); Mean Corpuscular Hemoglobin 29.5 PG (26-34); Monocytes Absolute Auto 500 /uL (0-900); Monocytes Percent Auto 7.5 % (3-14); Neutrophils Absolute Auto 5800 /uL (1500-7000); Platelet Count 214 X10^3/uL (150-400); Red Blood Cell Count 3.74 X10^6/uL (4.0-5.2); Red Cell Distribution Width 13.3 % (11.6-14.8); White Blood Cell Count 6.9 X10^3/uL (4.5-11.0)
[2021-06-27 17:40] LABS: Prothrombin Time 10.7 SECONDS (10.1-12.7)
--- NOTE | 2021-06-27 17:41 | ED.ARRPALP ---
HPI - Arrhythmia/Palpitations <Jessica Crews DO - Last Filed: 06/29/21 07:23> General Chief Complaint: Arrhythmia/Palpitations Stated Complaint: Racing Heart, Sent From Dr Mcallister Time Seen by Provider: 06/27/21 17:33 Source: patient Mode of arrival: Ambulatory History of Present Illness HPI narrative: This is a 30-year-old female who is 31 weeks by dates. Patient is otherwise healthy. She is on aspirin daily for hypertension in 3rd trimester with her prior . She has had 2 kidney stones any UTI during this . Patient developed fever 100.5, racing heart and felt little bit short of breath and was asked to come in for evaluation by her Ob provider Dr. Mcallister. Patient denies any syncope or lightheadedness. She has some mild wrist pain, mild shortness of breath. Some mild nausea which she states is not atypical. No vomiting. No abdominal pain. No dysuria frequency or vaginal bleeding or discharge. No diarrhea constipation. No new swelling in her extremities. Patient has had normal movement and no new changes or contractions with her . She states so far this has been otherwise uneventful. Patient does not use any tobacco, alcohol or illicit. Related Data Home Medications Medication Instructions Recorded Confirmed cetirizine 10 mg tablet (Zyrtec) 10 mg PO DAILY PRN 02/23/19 06/24/21 prenat.vits,boyd,ogo-dwiv-mabbw 1 tab PO DAILY 04/18/19 06/24/21 Previous Rx's Medication Instructions Recorded omeprazole 40 mg capsule,delayed 40 mg PO DAILY #30 cap 04/24/21 release Allergies Allergy/AdvReac Type Severity Reaction Status Date / Time Sulfa (Sulfonamide Allergy Intermediate Vomiting Verified 06/27/21 17:08 Antibiotics) and thick [SULFA (SULFONAMIDE feeling in ANTIBIOTICS)] my throat adhesive Allergy Mild SENSITIVE Verified 06/27/21 17:08 SKIN amoxicillin Allergy Mild RASH Verified 06/27/21 17:08 latex Allergy Mild LOCAL Verified 06/27/21 17:08 REDNESS codeine AdvReac Mild VOMITING Verified 06/27/21 17:08 Review of Systems <Jessica Crews DO - Last Filed: 06/29/21 07:23> Review of Systems ROS Unobtainable: All systems reviewed & are unremarkable except as noted in HPI and below Patient History <Jessica Crews DO - Last Filed: 06/29/21 07:23> Medical History Anemia (2005) Chicken pox (1995) Eczema (1999) Endometriosis (2010) Fractures (2003) Hemorrhoid (2013) History of being hospitalized (~01/12/21) Hypertension affecting in third trimester Infertility Irregular menstrual cycle (2010) Irritable bowel syndrome (2009) Migraines (2007) Oligo-ovulation with amenorrhea Ovarian cyst (2011) Painful menstrual periods (2010) Seasonal allergies (2007) (spontaneous vaginal delivery) (~11/22/19) Tinnitus (2009) Vaginal delivery (~11/22/19) Surgical History Anesthesia History of esophagogastroduodenoscopy (EGD) (05/21/14) History of knee surgery (11/08/14) Status post colonoscopy (05/21/14) Family History Father Cancer High cholesterol Brain cancer Seizure CVA (cerebral vascular accident) Enlarged heart Grandfather Heart disease Congestive heart failure Family estrangement Grandmother Cancer Family estrangement Mother Type 2 diabetes mellitus Depression Hypertension Mental health problem , twin with loss of one fetus Grandfather Hemorrhagic stroke Grandmother Heart disease Heart attack Family estrangement Brother Developmental delay Brother Addiction Other Colon polyps Social History marital status: number of children: 1 household members: spouse and children lives independently: Yes pets and animals: Yes (Dogs X 2) education level: college occupational status: employed ([employer] ) current occupational exposures/hazards: Yes (Radiology and Fluorscopy ) special neena needs: No Smoking Status: Never smoker second hand exposure: No alcohol intake: former (pre- : social ) substance use type: does not use Smoking Status: Never smoker alcohol intake frequency: 0-2 drinks per day Substance Use Type: does not use Exam <Jessica Crews DO - Last Filed: 06/29/21 07:23> Narrative Exam Narrative: GEN: well nourished, well appearing female, alert and oriented x 3, patient appears to be in mild distress. HEENT: Atraumatic, pupils are equal round reactive to light, extraocular movements are intact, nares are clear, TMs are clear with no fluid, there is no conjunctival pallor. Throat is clear without any exudates, erythema, tonsillar enlargement or uvular deviation HEART: Tachycardic but Regular rate and rhythm without murmur, clicks, rubs. No JVD. No swelling bilateral lower extremities LUNGS:Lungs clear to auscultation, no wheezes, rales, crackles, chest moves symmetrically, no tachypnea or accessory muscle use. ABD:bowel sounds normal, soft, non-tender, no guarding, rebound, rigidity, no masses noted, no hepatosplenomegaly :No CVA tenderness MSCL: Non-tender, no muscle atrophy, muscles strength 5/5 upper and lower extremities, full range of motion, normal gait NEURO:CN 2-12 intact, sensation normal Initial Vital Signs Initial Vital Signs: Vital Signs Temperature 99.2 F 06/27/21 16:55 Pulse Rate 139 H 06/27/21 16:55 Respiratory Rate 20 06/27/21 16:55 Blood Pressure 128/83 06/27/21 16:55 Pulse Oximetry 99 06/27/21 16:55 <Scot Garcia DO - Last Filed: 06/28/21 06:00> Initial Vital Signs Initial Vital Signs: Vital Signs Temperature 99.2 F 06/27/21 16:55 Pulse Rate 139 H 06/27/21 16:55 Respiratory Rate 20 06/27/21 16:55 Blood Pressure 128/83 06/27/21 16:55 Pulse Oximetry 99 06/27/21 16:55 Course <Jessica Crews DO - Last Filed: 06/29/21 07:23> Orders Ordered: Discontinued Medications Sodium Chloride (Normal Saline 0.9%) 1,000 mls @ 1,000 mls/hr IV BOLUS ONE Stop: 06/27/21 17:59 Last Infusion: 06/27/21 18:30 Dose: 0 mls/hr Documented by: Admin: 06/27/21 17:00 Dose: 1,000 mls/hr Documented by: RAMA Sodium Chloride (Normal Saline 0.9%) 1,000 mls @ 1,000 mls/hr IV BOLUS ONE Stop: 06/27/21 19:44 Last Infusion: 06/27/21 21:44 Dose: 0 mls/hr Documented by: Admin: 06/27/21 19:37 Dose: 1,000 mls/hr Documented by: RAMA Potassium Chloride (Potassium Chloride 20 Meq/15 Ml Udc) 40 meq PO NOW ONE Stop: 06/27/21 18:42 Last Admin: 06/27/21 19:37 Dose: 40 meq Documented by: RAMA Vital Signs Vital signs: Vital Signs - 8 hr 06/27/21 22:00 06/27/21 22:30 06/27/21 23:13 Pulse Rate 113 H 123 H 128 H Respiratory Rate 15 15 31 H Blood Pressure 121/67 136/95 H Pulse Oximetry 100 99 96 06/27/21 23:30 06/28/21 00:00 Pulse Rate 111 H 109 H Respiratory Rate 12 12 Blood Pressure 136/95 H Pulse Oximetry 97 97 <Scot Garcia DO - Last Filed: 06/28/21 06:00> Course Course Narrative: patient received in signout at [address] Crews. Performed an independent history and physical exam. The patient has received fluids and remains persistently tachycardic and short of breath with exertion. D-dimer is added which is significantly elevated, when YEARS criteria for evaluation of PE in is consulted CTA is recommended. I have also discussed with division order technician OB regarding any specific options for COVID in . Nothing specific at this time if no supplemental oxygen is needed. Patient rests comfortably with nonlabored breathing and stable vital signs with pulse ox in the mid 90s. CT angiogram was unremarkable for pulmonary embolism. Patient received another half bag of fluid and is beginning to feel better though she does remain tachycardic up to 110 or so. She is able to ambulate without any significant work of breathing, she admittedly does not feel great but certainly feels better than her arrival. Shortness of breath and fatigue most likely related to combination of COVID-19 and . Persistent tachycardia also likely a consequence of COVID. Mucous membranes are moist, no orthostasis noted. No indication for hospitalization, patient feeling much better, questions answered to her apparent satisfaction. We had an extensive discussion regarding return precautions. She understands and agrees with the plan Orders Ordered: Discontinued Medications Sodium Chloride (Normal Saline 0.9%) 1,000 mls @ 1,000 mls/hr IV BOLUS ONE Stop: 06/27/21 17:59 Last Infusion: 06/27/21 18:30 Dose: 0 mls/hr Documented by: Admin: 06/27/21 17:00 Dose: 1,000 mls/hr Documented by: RAMA Sodium Chloride (Normal Saline 0.9%) 1,000 mls @ 1,000 mls/hr IV BOLUS ONE Stop: 06/27/21 19:44 Last Infusion: 06/27/21 21:44 Dose: 0 mls/hr Documented by: Admin: 06/27/21 19:37 Dose: 1,000 mls/hr Documented by: RAMA Potassium Chloride (Potassium Chloride 20 Meq/15 Ml Udc) 40 meq PO NOW ONE Stop: 06/27/21 18:42 Last Admin: 06/27/21 19:37 Dose: 40 meq Documented by: RAMA Vital Signs Vital signs: Vital Signs - 8 hr 06/27/21 22:00 06/27/21 22:30 06/27/21 23:13 Pulse Rate 113 H 123 H 128 H Respiratory Rate 15 15 31 H Blood Pressure 121/67 136/95 H Pulse Oximetry 100 99 96 06/27/21 23:30 06/28/21 00:00 Pulse Rate 111 H 109 H Respiratory Rate 12 12 Blood Pressure 136/95 H Pulse Oximetry 97 97 MDM - Arrhythmia/Palpitations <Jessica Crews DO - Last Filed: 06/29/21 07:23> Lab Data Result diagrams: 06/27/21 17:10 06/27/21 17:10 Labs: Lab Results 06/27/21 06/27/21 06/27/21 Range/Units 16:57 17:10 17:10 WBC 6.9 (4.5-11.0) X10^3/uL RBC 3.74 L (4.0-5.2) X10^6/uL Hgb 11.0 L (12.0-16.0) g/dL Hct 31.8 L (36-46) % MCV 85.0 (80-100) fL MCH 29.5 (26-34) PG MCHC 34.7 (30-36) % RDW 13.3 (11.6-14.8) % Plt Count 214 (150-400) X10^3/uL Neut % (Auto) 84.0 H (50-75) % Lymph % (Auto) 7.9 L (25-40) % [place] % (Auto) 7.5 (3-14) % Eos % (Auto) 0.3 L (2-4) % Baso % (Auto) 0.3 (0-2) % Neut # (Auto) 5800 (3008-9904) /uL Lymph # (Auto) 500 L (9844-0430) /uL [place] # (Auto) 500 (0-900) /uL Eos # (Auto) 0 (0-450) /uL Baso # (Auto) 0 (0-100) /uL PT 10.7 (10.1-12.7) SECONDS INR 1.0 (0.9-1.3) APTT 26 L (26.4-36.2) SECONDS D-Dimer (<230) ng/mL Sodium (137-145) mmol/L Potassium (3.4-5.1) mmol/L Chloride (98-107) mmol/L Carbon Dioxide (22-32) mmol/L BUN (7-17) mg/dL Creatinine (0.52-1.04) mg/dL Estimated GFR (>60) mL/min BUN/Creatinine Ratio (6-22) Glucose (70-100) mg/dL Lactate (0.7-2.1) mmol/L Calcium (8.4-10.2) mg/dL Ferritin (6-137) ng/mL Total Bilirubin (0.2-1.3) mg/dL AST (14-36) IU/L ALT (<35) IU/L Alkaline Phosphatase (38-126) U/L Lactate Dehydrogenase (313-618) U/L Total Creatine Kinase (30-135) U/L CK-MB (CK-2) CK-MB (CK-2) Rel Index Troponin I (0.01-0.034) ng/mL C-Reactive Protein (<1.0) mg/dL NT-Pro-B Natriuret Pep (<125) pg/mL Total Protein (6.3-8.2) g/dL Albumin (3.5-5.0) g/dL Globulin (1.7-4.1) g/dL Albumin/Globulin Ratio (1.0-2.8) Lipase (23-300) U/L Procalcitonin (<0.5) ng/mL SARS-CoV-2 (PCR) Positive H (Negative) 06/27/21 06/27/21 06/27/21 Range/Units 17:10 17:10 17:10 WBC (4.5-11.0) X10^3/uL RBC (4.0-5.2) X10^6/uL Hgb (12.0-16.0) g/dL Hct (36-46) % MCV (80-100) fL MCH (26-34) PG MCHC (30-36) % RDW (11.6-14.8) % Plt Count (150-400) X10^3/uL Neut % (Auto) (50-75) % Lymph % (Auto) (25-40) % [place] % (Auto) (3-14) % Eos % (Auto) (2-4) % Baso % (Auto) (0-2) % Neut # (Auto) (0049-4103) /uL Lymph # (Auto) (4897-6747) /uL [place] # (Auto) (0-900) /uL Eos # (Auto) (0-450) /uL Baso # (Auto) (0-100) /uL PT (10.1-12.7) SECONDS INR (0.9-1.3) APTT (26.4-36.2) SECONDS D-Dimer (<230) ng/mL Sodium 134 L (137-145) mmol/L Potassium 3.2 L (3.4-5.1) mmol/L Chloride 108 H (98-107) mmol/L Carbon Dioxide 22 (22-32) mmol/L BUN 4 L (7-17) mg/dL Creatinine 0.46 L (0.52-1.04) mg/dL Estimated GFR > 60.0 (>60) mL/min BUN/Creatinine Ratio 8.7 (6-22) Glucose 90 (70-100) mg/dL Lactate 0.8 (0.7-2.1) mmol/L Calcium 9.2 (8.4-10.2) mg/dL Ferritin 16 (6-137) ng/mL Total Bilirubin 0.3 (0.2-1.3) mg/dL AST 43 H (14-36) IU/L ALT 25 (<35) IU/L Alkaline Phosphatase 86 (38-126) U/L Lactate Dehydrogenase 584 (313-618) U/L Total Creatine Kinase 36 (30-135) U/L CK-MB (CK-2) TNP CK-MB (CK-2) Rel Index TNP Troponin I 0.014 (0.01-0.034) ng/mL C-Reactive Protein 1.8 H (<1.0) mg/dL NT-Pro-B Natriuret Pep 65 (<125) pg/mL Total Protein 6.9 (6.3-8.2) g/dL Albumin 3.9 (3.5-5.0) g/dL Globulin 3.0 (1.7-4.1) g/dL Albumin/Globulin Ratio 1.3 (1.0-2.8) Lipase 28 (23-300) U/L Procalcitonin 0.10 (<0.5) ng/mL SARS-CoV-2 (PCR) (Negative) 06/27/21 Range/Units 17:10 WBC (4.5-11.0) X10^3/uL RBC (4.0-5.2) X10^6/uL Hgb (12.0-16.0) g/dL Hct (36-46) % MCV (80-100) fL MCH (26-34) PG MCHC (30-36) % RDW (11.6-14.8) % Plt Count (150-400) X10^3/uL Neut % (Auto) (50-75) % Lymph % (Auto) (25-40) % [place] % (Auto) (3-14) % Eos % (Auto) (2-4) % Baso % (Auto) (0-2) % Neut # (Auto) (6316-4217) /uL Lymph # (Auto) (7564-0388) /uL [place] # (Auto) (0-900) /uL Eos # (Auto) (0-450) /uL Baso # (Auto) (0-100) /uL PT (10.1-12.7) SECONDS INR (0.9-1.3) APTT (26.4-36.2) SECONDS D-Dimer 485 H (<230) ng/mL Sodium (137-145) mmol/L Potassium (3.4-5.1) mmol/L Chloride (98-107) mmol/L Carbon Dioxide (22-32) mmol/L BUN (7-17) mg/dL Creatinine (0.52-1.04) mg/dL Estimated GFR (>60) mL/min BUN/Creatinine Ratio (6-22) Glucose (70-100) mg/dL Lactate (0.7-2.1) mmol/L Calcium (8.4-10.2) mg/dL Ferritin (6-137) ng/mL Total Bilirubin (0.2-1.3) mg/dL AST (14-36) IU/L ALT (<35) IU/L Alkaline Phosphatase (38-126) U/L Lactate Dehydrogenase (313-618) U/L Total Creatine Kinase (30-135) U/L CK-MB (CK-2) CK-MB (CK-2) Rel Index Troponin I (0.01-0.034) ng/mL C-Reactive Protein (<1.0) mg/dL NT-Pro-B Natriuret Pep (<125) pg/mL Total Protein (6.3-8.2) g/dL Albumin (3.5-5.0) g/dL Globulin (1.7-4.1) g/dL Albumin/Globulin Ratio (1.0-2.8) Lipase (23-300) U/L Procalcitonin (<0.5) ng/mL SARS-CoV-2 (PCR) (Negative) Urine Dip Bedside Urine Glucose Negative Bedside Urine Bilirubin - Negative Bedside Urine Ketone +++ 80 Urine Specific [place] 1.010 Bedside Urine Occult Blood - Negative Bedside Urine pH 6.0 Bedside Urine Protein - Negative Bedside Urine Urobilinogen 0.2 Bedside Urine Nitrite - Negative Bedside Urine Leukocytes - Negative Esterase ECG Data Attestation: I personally reviewed and interpreted this ECG as follows: Interpretation: Sinus tachycardia rate of 131 TX 136 QRS 72 QTC 564. No acute ST elevation. Patient does have T-wave inversion in lead 3. MDM Narrative Medical decision making narrative: This is a 30-year-old female comes in with complaint of fever, tachycardia little chest pain and shortness of breath. Patient is vaccinated with JJ vaccine she is not loose at this time. She is 31 weeks . She arrives tachycardic, afebrile with normal oxygenation and blood pressure. COVID swab is positive. Discussion about chest x-ray and risk versus benefit was discussed. At this time she defers but is open to re-evaluation if needed he EKG does show a sinus tachycardia. Labs were obtained. Potassium slightly low. Some markers are elevated including CRP but overall reassuring labs. Patient continues to have some tachycardia but seems somewhat responsive fluids. Patient signed out to Dr. Garcia while hydrating with plan to discuss with OBGYN for recommendations and ultimate disposition. <Scot Garcia, DO - Last Filed: 06/28/21 06:00> Lab Data Labs: Lab Results 06/27/21 06/27/21 06/27/21 Range/Units 16:57 17:10 17:10 WBC 6.9 (4.5-11.0) X10^3/uL RBC 3.74 L (4.0-5.2) X10^6/uL Hgb 11.0 L (12.0-16.0) g/dL Hct 31.8 L (36-46) % MCV 85.0 (80-100) fL MCH 29.5 (26-34) PG MCHC 34.7 (30-36) % RDW 13.3 (11.6-14.8) % Plt Count 214 (150-400) X10^3/uL Neut % (Auto) 84.0 H (50-75) % Lymph % (Auto) 7.9 L (25-40) % [place] % (Auto) 7.5 (3-14) % Eos % (Auto) 0.3 L (2-4) % Baso % (Auto) 0.3 (0-2) % Neut # (Auto) 5800 (6246-6742) /uL Lymph # (Auto) 500 L (2507-2414) /uL [place] # (Auto) 500 (0-900) /uL Eos # (Auto) 0 (0-450) /uL Baso # (Auto) 0 (0-100) /uL PT 10.7 (10.1-12.7) SECONDS INR 1.0 (0.9-1.3) APTT 26 L (26.4-36.2) SECONDS D-Dimer (<230) ng/mL Sodium (137-145) mmol/L Potassium (3.4-5.1) mmol/L Chloride (98-107) mmol/L Carbon Dioxide (22-32) mmol/L BUN (7-17) mg/dL Creatinine (0.52-1.04) mg/dL Estimated GFR (>60) mL/min BUN/Creatinine Ratio (6-22) Glucose (70-100) mg/dL Lactate (0.7-2.1) mmol/L Calcium (8.4-10.2) mg/dL Ferritin (6-137) ng/mL Total Bilirubin (0.2-1.3) mg/dL AST (14-36) IU/L ALT (<35) IU/L Alkaline Phosphatase (38-126) U/L Lactate Dehydrogenase (313-618) U/L Total Creatine Kinase (30-135) U/L CK-MB (CK-2) CK-MB (CK-2) Rel Index Troponin I (0.01-0.034) ng/mL C-Reactive Protein (<1.0) mg/dL NT-Pro-B Natriuret Pep (<125) pg/mL Total Protein (6.3-8.2) g/dL Albumin (3.5-5.0) g/dL Globulin (1.7-4.1) g/dL Albumin/Globulin Ratio (1.0-2.8) Lipase (23-300) U/L Procalcitonin (<0.5) ng/mL SARS-CoV-2 (PCR) Positive H (Negative) 06/27/21 06/27/21 06/27/21 Range/Units 17:10 17:10 17:10 WBC (4.5-11.0) X10^3/uL RBC (4.0-5.2) X10^6/uL Hgb (12.0-16.0) g/dL Hct (36-46) % MCV (80-100) fL MCH (26-34) PG MCHC (30-36) % RDW (11.6-14.8) % Plt Count (150-400) X10^3/uL Neut % (Auto) (50-75) % Lymph % (Auto) (25-40) % [place] % (Auto) (3-14) % Eos % (Auto) (2-4) % Baso % (Auto) (0-2) % Neut # (Auto) (2350-4874) /uL Lymph # (Auto) (6643-2340) /uL [place] # (Auto) (0-900) /uL Eos # (Auto) (0-450) /uL Baso # (Auto) (0-100) /uL PT (10.1-12.7) SECONDS INR (0.9-1.3) APTT (26.4-36.2) SECONDS D-Dimer (<230) ng/mL Sodium 134 L (137-145) mmol/L Potassium 3.2 L (3.4-5.1) mmol/L Chloride 108 H (98-107) mmol/L Carbon Dioxide 22 (22-32) mmol/L BUN 4 L (7-17) mg/dL Creatinine 0.46 L (0.52-1.04) mg/dL Estimated GFR > 60.0 (>60) mL/min BUN/Creatinine Ratio 8.7 (6-22) Glucose 90 (70-100) mg/dL Lactate 0.8 (0.7-2.1) mmol/L Calcium 9.2 (8.4-10.2) mg/dL Ferritin 16 (6-137) ng/mL Total Bilirubin 0.3 (0.2-1.3) mg/dL AST 43 H (14-36) IU/L ALT 25 (<35) IU/L Alkaline Phosphatase 86 (38-126) U/L Lactate Dehydrogenase 584 (313-618) U/L Total Creatine Kinase 36 (30-135) U/L CK-MB (CK-2) TNP CK-MB (CK-2) Rel Index TNP Troponin I 0.014 (0.01-0.034) ng/mL C-Reactive Protein 1.8 H (<1.0) mg/dL NT-Pro-B Natriuret Pep 65 (<125) pg/mL Total Protein 6.9 (6.3-8.2) g/dL Albumin 3.9 (3.5-5.0) g/dL Globulin 3.0 (1.7-4.1) g/dL Albumin/Globulin Ratio 1.3 (1.0-2.8) Lipase 28 (23-300) U/L Procalcitonin 0.10 (<0.5) ng/mL SARS-CoV-2 (PCR) (Negative) 06/27/21 Range/Units 17:10 WBC (4.5-11.0) X10^3/uL RBC (4.0-5.2) X10^6/uL Hgb (12.0-16.0) g/dL Hct (36-46) % MCV (80-100) fL MCH (26-34) PG MCHC (30-36) % RDW (11.6-14.8) % Plt Count (150-400) X10^3/uL Neut % (Auto) (50-75) % Lymph % (Auto) (25-40) % [place] % (Auto) (3-14) % Eos % (Auto) (2-4) % Baso % (Auto) (0-2) % Neut # (Auto) (0190-8556) /uL Lymph # (Auto) (0877-3090) /uL [place] # (Auto) (0-900) /uL Eos # (Auto) (0-450) /uL Baso # (Auto) (0-100) /uL PT (10.1-12.7) SECONDS INR (0.9-1.3) APTT (26.4-36.2) SECONDS D-Dimer 485 H (<230) ng/mL Sodium (137-145) mmol/L Potassium (3.4-5.1) mmol/L Chloride (98-107) mmol/L Carbon Dioxide (22-32) mmol/L BUN (7-17) mg/dL Creatinine (0.52-1.04) mg/dL Estimated GFR (>60) mL/min BUN/Creatinine Ratio (6-22) Glucose (70-100) mg/dL Lactate (0.7-2.1) mmol/L Calcium (8.4-10.2) mg/dL Ferritin (6-137) ng/mL Total Bilirubin (0.2-1.3) mg/dL AST (14-36) IU/L ALT (<35) IU/L Alkaline Phosphatase (38-126) U/L Lactate Dehydrogenase (313-618) U/L Total Creatine Kinase (30-135) U/L CK-MB (CK-2) CK-MB (CK-2) Rel Index Troponin I (0.01-0.034) ng/mL C-Reactive Protein (<1.0) mg/dL NT-Pro-B Natriuret Pep (<125) pg/mL Total Protein (6.3-8.2) g/dL Albumin (3.5-5.0) g/dL Globulin (1.7-4.1) g/dL Albumin/Globulin Ratio (1.0-2.8) Lipase (23-300) U/L Procalcitonin (<0.5) ng/mL SARS-CoV-2 (PCR) (Negative) Urine Dip Bedside Urine Glucose Negative Bedside Urine Bilirubin - Negative Bedside Urine Ketone +++ 80 Urine Specific [place] 1.010 Bedside Urine Occult Blood - Negative Bedside Urine pH 6.0 Bedside Urine Protein - Negative Bedside Urine Urobilinogen 0.2 Bedside Urine Nitrite - Negative Bedside Urine Leukocytes - Negative Esterase Discharge Plan Departure Patient Disposition: Home Clinical Impression: COVID-19 virus infection Instructions: DI for COVID-19 (Suspected or Confirmed ) Activity Restrictions/Additional Instructions: *You have been diagnosed with [ COVID-19] *What to do: * per recommendations from the CDC and the [facility] Department of Health * stay home except to get medical care. Restrict activities outside your home, except for getting medical care. Do not go to work, school, or public areas. Avoid using public transportation, ride sharing, or taxis. * separate yourself from other people in your home. * call ahead before visiting your doctor * Wear a facemask * Cover your coughs and sneezes * Clean your hands often * Avoid sharing household items * Clean all high-touch services every day * Monitor your symptoms and seek prompt medical attention if your illness is worsening, particularly with difficulty in breathing. You may discontinue your isolation when: 1. You have been fever-free for at least 24 hours without the use of fever reducing medication, AND 2. Your symptoms are getting better 3. At least 5 days have passed since symptoms first appeared 4. If you have fever, continue to stay home until fever resolves Individuals with laboratory confirmed COVID-19 who have not had any symptoms may discontinue home isolation when at least 5 days have passed since the date of their first COVID-19 diagnostic test and have had no subsequent illness Prescriptions: No Action cetirizine [Zyrtec] 10 mg tablet 10 mg PO DAILY PRN (Reason: Allergy Symptoms) 0RF prenat.vits,boyd,[id number] Tablet 1 tab PO DAILY 0RF omeprazole 40 mg capsule,delayed release(DR/EC) 40 mg PO DAILY Qty: 30 3RF Referrals: Abe Coffey MD [Primary Care Provider] -
[2021-06-27 17:42] LABS: PTT Partial Thromboplastin Tim 26 SECONDS (26.4-36.2)
[2021-06-27 17:45] LABS: Alanine Aminotransferase 25 IU/L (<35); Albumin 3.9 g/dL (3.5-5.0); Albumin Globulin Ratio 1.3 (1.0-2.8); Alkaline Phosphatase 86 U/L (38-126); Aspartate Aminotransferase 43 IU/L (14-36); BUN Creatinine Ratio 8.7 (6-22); Bilirubin Total 0.3 mg/dL (0.2-1.3); Blood Urea Nitrogen 4 mg/dL (7-17); Calcium 9.2 mg/dL (8.4-10.2); Carbon Dioxide 22 mmol/L (22-32); Chloride 108 mmol/L (98-107); Estimated Glomerular Filt Rate > 60.0 mL/min (>60); Glucose 90 mg/dL (70-100); HEMOLYSIS < 15 (0-50); Lactate (Lactic Acid) 0.8 mmol/L (0.7-2.1); Lipase 28 U/L (23-300); Potassium 3.2 mmol/L (3.4-5.1); Sodium 134 mmol/L (137-145); Total Protein 6.9 g/dL (6.3-8.2)
[2021-06-27 18:01] LABS: C-Reactive Protein Quant 1.8 mg/dL (<1.0); Creatine Kinase 36 U/L (30-135); Lactate Dehydrogenase 584 U/L (313-618)
[2021-06-27 18:11] LABS: NT-proBNP (BNP-Adult 18+) 65 pg/mL (<125); Troponin I 0.014 ng/mL (0.01-0.034)
[2021-06-27 18:34] LABS: Ferritin 16 ng/mL (6-137)
[2021-06-27] MEDS: POTASSIUM CHLORIDE 20 MEQ/15 ML UDC 40 MEQ PO (19:37)
[2021-06-27 21:10] LABS: D Dimer 485 ng/mL (<230)
--- NOTE | 2021-06-27 22:26 | DI.CT.S_ITS ---
PROCEDURE: CT ANGIO CHEST PE PROTOCOL INDICATIONS: critical D Dimer, + YEARS algorithm, tachy, Shortness of breath TECHNIQUE: After the administration of intravenous contrast, 2 mm thick sections acquired from the pulmonary apices to the posterior costophrenic angles. 3-dimensional maximum intensity projection (MIP) coronal and sagittal reformats were then acquired through the thorax. For radiation dose reduction, the following was used: automated exposure control, adjustment of mA and/or kV according to patient size. COMPARISON: None. FINDINGS: Image quality: Excellent. Pulmonary arteries: Pulmonary arteries are normal in size, and demonstrate no intraluminal filling defects to suggest central pulmonary embolism. Lungs and pleura: Minimal right greater than left bilateral lower lobe dependent ground-glass opacities likely representing atelectasis. No focal consolidations. No pleural effusions or pneumothorax. Central and peripheral airways are patent. Mediastinum: Heart size is normal, without pericardial effusion. No mediastinal or hilar adenopathy. Thoracic aorta is normal in caliber and enhancement. Esophagus is normal in caliber, without hiatal hernia. Bones and chest wall: No suspicious bony lesions. Ribs and thoracic spine appear intact throughout. Thyroid gland is unremarkable. No axillary or supraclavicular adenopathy. Abdomen: Visualized upper abdominal solid organs appear normal in the early arterial phase of enhancement. IMPRESSION: No acute pulmonary emboli. No evidence for acute right-sided heart strain. Minimal bilateral lower lobe dependent ground-glass opacities favored to represent atelectasis. No focal consolidations. Dictated by: Randall Sanchez M.D. on 06/27/2021 at 23:19 Approved by: Randall Sanchez M.D. on 06/27/2021 at 23:22
[2021-06-28] VITALS: PULSE 109; RESP 12; O2SAT 97
== END 2021-06-28 00:42 | disposition home or self-care (01) ==
PROVIDERS: Emergency Medicine; Emergency Provider Emergency Medicine; PCP Family Medicine
DX: O98.513 Other viral diseases complicating pregnancy, third trimester (principal); U07.1 COVID-19; Z3A.31 31 weeks gestation of pregnancy
CPT/HCPCS: 36415; 71275; 80053; 81003; 82550; 82728; 83605; 83615; 83690; 83880; 84145; 84484; 85025; 85379; 85610; 85730; 86140; 87040; 87635; 93005; 93010; 99284; C9803; Q9967

== ENCOUNTER → 2021-07-29 09:40 | Outpatient (CLI) | payer BC, SELFPAY ==
[2021-01-12 17:16] VITALS: BMI 26.7
[2021-07-30 17:01] LABS: Strep Grp B PCR POS for Grp B Strep
== END ==
PROVIDERS: PCP Family Medicine; Visit Provider Specialist
DX: Z36.85 Encounter for antenatal screening for Streptococcus B (principal); Z3A.35 35 weeks gestation of pregnancy
CPT/HCPCS: 87653

== ENCOUNTER 2021-08-13 20:11 | Observation (INO) | payer BC, SELFPAY ==
[2021-01-12 17:16] VITALS: BMI 26.7
== END 2021-08-13 20:55 | disposition home or self-care (01) ==
PROVIDERS: Admitting Provider Obstetrics & Gynecology; PCP Family Medicine; Referring Provider Obstetrics & Gynecology; Visit Provider Obstetrics & Gynecology
DX: O47.1 False labor at or after 37 completed weeks of gestation (principal); Z3A.37 37 weeks gestation of pregnancy
CPT/HCPCS: 59025; G0378; G0379

== ENCOUNTER 2021-08-22 14:45 | Observation (INO) | payer BC, SELFPAY ==
[2021-01-12 17:16] VITALS: BMI 26.7
[2021-08-22 16:22] LABS: Add Manual Diff / Slide Review NO; Basophils Absolute Auto 0 /uL (0-100); Basophils Percent Auto 0.2 % (0-2); Eosinophils Absolute Auto 0 /uL (0-450); Eosinophils Percent Auto 0.4 % (2-4); Hematocrit 33.1 % (36-46); Hemoglobin 10.9 g/dL (12.0-16.0); Lymphocytes Absolute Auto 2000 /uL (1100-4500); Mean Corpuscular HGB Conc 32.9 % (30-36); Mean Corpuscular Hemoglobin 27.5 PG (26-34); Mean Corpuscular Volume 83.4 fL (80-100); Monocytes Absolute Auto 600 /uL (0-900); Monocytes Percent Auto 5.8 % (3-14); Neutrophils Absolute Auto 7400 /uL (1500-7000); Neutrophils Percent Auto 73.6 % (50-75); Platelet Count 227 X10^3/uL (150-400); Red Blood Cell Count 3.97 X10^6/uL (4.0-5.2); Red Cell Distribution Width 12.8 % (11.6-14.8); White Blood Cell Count 10.1 X10^3/uL (4.5-11.0)
[2021-08-22 16:38] LABS: Alanine Aminotransferase 12 IU/L (<35); Albumin Globulin Ratio 1.2 (1.0-2.8); Alkaline Phosphatase 180 U/L (38-126); Aspartate Aminotransferase 23 IU/L (14-36); BUN Creatinine Ratio 10.5 (6-22); Bilirubin Total 0.2 mg/dL (0.2-1.3); Blood Urea Nitrogen 6 mg/dL (7-17); Calcium 8.9 mg/dL (8.4-10.2); Carbon Dioxide 22 mmol/L (22-32); Chloride 110 mmol/L (98-107); Estimated Glomerular Filt Rate > 60.0 mL/min (>60); Globulin 3.4 g/dL (1.7-4.1); Glucose 79 mg/dL (70-100); HEMOLYSIS < 15 (0-50); Potassium 3.9 mmol/L (3.4-5.1); Sodium 136 mmol/L (137-145); Total Protein 7.4 g/dL (6.3-8.2)
[2021-08-22 17:57] LABS: Creatinine Urine Random 34.3 mg/dL; Protein (Total) Urine Random 14 mg/dL (0-12)
--- NOTE | 2021-08-22 19:42 | PM.OBTRLD ---
Visit Information Visit Information Date of evaluation: 08/22/21 Primary OB Provider: Autumn Mcallister On-call OB Provider: Rachel John Reason for Evaluation: Yes rule out labor Vital Signs Vital Signs: Initial blood pressure 144/92 with heart rate of 92 Repeat blood pressure 136/86 with heart rate of 89 Subsequent blood pressures were 120s/80s primarily PFSH Medical History Anemia (2005) Chicken pox (1995) Eczema (1999) Endometriosis (2010) Fractures (2003) Hemorrhoid (2013) History of being hospitalized (~01/12/21) Hypertension affecting in third trimester Infertility Irregular menstrual cycle (2010) Irritable bowel syndrome (2009) Migraines (2007) Oligo-ovulation with amenorrhea Ovarian cyst (2011) Painful menstrual periods (2010) Seasonal allergies (2007) (spontaneous vaginal delivery) (~11/22/19) Tinnitus (2009) Vaginal delivery (~11/22/19) Surgical History Anesthesia History of esophagogastroduodenoscopy (EGD) (05/21/14) History of knee surgery (11/08/14) Status post colonoscopy (05/21/14) Family History Father Cancer High cholesterol Brain cancer Seizure CVA (cerebral vascular accident) Enlarged heart Grandfather Heart disease Congestive heart failure Family estrangement Grandmother Cancer Family estrangement Mother Type 2 diabetes mellitus Depression Hypertension Mental health problem , twin with loss of one fetus Grandfather Hemorrhagic stroke Grandmother Heart disease Heart attack Family estrangement Brother Developmental delay Brother Addiction Other Colon polyps Social History marital status: number of children: 1 household members: spouse and children lives independently: Yes pets and animals: Yes (Dogs X 2) education level: college occupational status: employed ([employer] ) current occupational exposures/hazards: Yes (Radiology and Fluorscopy ) special neena needs: No Smoking Status: Never smoker second hand exposure: No alcohol intake: former (pre- : social ) substance use type: does not use Objective Labs Result Diagrams: 08/22/21 16:00 08/22/21 16:00 Labs: Laboratory Results - last 24 hr 08/22/21 08/22/21 08/22/21 16:00 16:00 16:00 WBC 10.1 RBC 3.97 L Hgb 10.9 L Hct 33.1 L MCV 83.4 MCH 27.5 MCHC 32.9 RDW 12.8 Plt Count 227 Neut % (Auto) 73.6 Lymph % (Auto) 20.0 L [place] % (Auto) 5.8 Eos % (Auto) 0.4 L Baso % (Auto) 0.2 Neut # (Auto) 7400 H Lymph # (Auto) 2000 [place] # (Auto) 600 Eos # (Auto) 0 Baso # (Auto) 0 Sodium 136 L Potassium 3.9 Chloride 110 H Carbon Dioxide 22 BUN 6 L Creatinine 0.57 Estimated GFR > 60.0 BUN/Creatinine Ratio 10.5 Glucose 79 Calcium 8.9 Total Bilirubin 0.2 AST 23 ALT 12 Alkaline Phosphatase 180 H Total Protein 7.4 Albumin 4.0 Globulin 3.4 Albumin/Globulin Ratio 1.2 U Random Total Protein 14 H Urine Creatinine 34.3 Protein/Creatinin Ratio 0.40 Evaluation Evaluation Baseline heart rate: 130 Variability: Moderate (11-25) monitor accelerations: Present Monitor Decelerations: Absent Contraction Frequency (minutes): 2 Category of Tracing: Reactive Cervical dilation (cm): 1.5 Cervical effacement (%): 50 station: 0 Diagnosis, Plan/Disposition Plan/Disposition Plan: 30-year-old 39 weeks and 1 day gestation with regular contractions that have increased the couple of hours. Denies leaking or bleeding and reports good movement. Initial blood pressure was elevated however repeat improved. She has had headaches off and on but no headache today. No vision changes, right upper quadrant pain or or extremity edema. She was monitored in the center over 2 hours. Repeat cervical exam unchanged. CBC and CMP were normal however urine protein creatinine ratio was still pending at the time of discharge. She was discharged home with return precautions. Urine protein creatinine ratio returned at 0.4. I called the patient with the results. She continues to contract but has not had a change in the intensity of contractions. No leaking or bleeding, good movement. Denies headaches. Ideally we would want to consider induction given concern for evolving preeclampsia with elevated protein creatinine ratio however we do not currently have the staffing in the center. She will come in tomorrow for an NST and serial blood pressures. She will monitor her blood pressures at home and call if elevated. She is aware to come in for signs of labor or sites of preeclampsia. OB Disposition: home
== END 2021-08-22 17:45 | disposition home or self-care (01) ==
PROVIDERS: Admitting Provider Family Medicine; PCP Family Medicine; Referring Provider Family Medicine; Visit Provider Family Medicine
DX: O47.1 False labor at or after 37 completed weeks of gestation (principal); O26.893 Other specified pregnancy related conditions, third trimester; R51.9 Headache, unspecified; Z3A.39 39 weeks gestation of pregnancy
CPT/HCPCS: 36415; 59025; 80053; 82570; 84156; 85025; G0378; G0379

== ENCOUNTER 2021-08-24 13:54 | Outpatient (CLI) | payer BC, SELFPAY ==
[2021-01-12 17:16] VITALS: BMI 26.7
--- NOTE | 2021-08-24 14:38 | PM.OBTRLD ---
Visit Information Visit Information Date of evaluation: 08/24/21 Primary OB Provider: Autumn Mcallister On-call OB Provider: Rachel John Reason for Evaluation: Yes non-stress test Vital Signs Vital Signs: Temperature 36.3? blood pressure 129/82 heart rate 122 Blood pressure 111/69 heart rate 106 PFSH Medical History Anemia (2005) Chicken pox (1995) Eczema (1999) Endometriosis (2010) Fractures (2003) Hemorrhoid (2013) History of being hospitalized (~01/12/21) Hypertension affecting in third trimester Infertility Irregular menstrual cycle (2010) Irritable bowel syndrome (2009) Migraines (2007) Oligo-ovulation with amenorrhea Ovarian cyst (2011) Painful menstrual periods (2010) Seasonal allergies (2007) (spontaneous vaginal delivery) (~11/22/19) Tinnitus (2009) Vaginal delivery (~11/22/19) Surgical History Anesthesia History of esophagogastroduodenoscopy (EGD) (05/21/14) History of knee surgery (11/08/14) Status post colonoscopy (05/21/14) Family History Father Cancer High cholesterol Brain cancer Seizure CVA (cerebral vascular accident) Enlarged heart Grandfather Heart disease Congestive heart failure Family estrangement Grandmother Cancer Family estrangement Mother Type 2 diabetes mellitus Depression Hypertension Mental health problem , twin with loss of one fetus Grandfather Hemorrhagic stroke Grandmother Heart disease Heart attack Family estrangement Brother Developmental delay Brother Addiction Other Colon polyps Social History marital status: number of children: 1 household members: spouse and children lives independently: Yes pets and animals: Yes (Dogs X 2) education level: college occupational status: employed ( ) current occupational exposures/hazards: Yes (Radiology and Fluorscopy ) special neena needs: No Smoking Status: Never smoker second hand exposure: No alcohol intake: former (pre- : social ) substance use type: does not use Evaluation Evaluation Baseline heart rate: 140 Variability: Moderate (11-25) monitor accelerations: Present Monitor Decelerations: Absent Contraction Frequency (minutes): 2 Uterine Contraction Intensity: Mild Diagnosis, Plan/Disposition Final Diagnosis (1) 39 weeks gestation of : Status: Acute Plan/Disposition Plan: 30-year-old at 39 weeks and 3 days gestation here for NST due to elevated blood pressure and mildly elevated protein creatinine ratio 2 days ago. She is without any symptoms of preeclampsia and has not had continued hypertension since her initial presentation 2 days ago. Blood pressure today is normal, 129/82 and 111/69. NST reactive. Follow-up with Dr. Mcallister in 2 days or return sooner for labor. OB Disposition: home
== END 2021-08-24 14:32 | disposition home or self-care (01) ==
LOC: OB 08-26 06:45
PROVIDERS: PCP Family Medicine; Referring Provider Family Medicine; Visit Provider Family Medicine
DX: O26.893 Other specified pregnancy related conditions, third trimester (principal); R03.0 Elevated blood-pressure reading, without diagnosis of hypertension; Z3A.39 39 weeks gestation of pregnancy
CPT/HCPCS: 59025; G0378; G0379

== ENCOUNTER 2021-08-29 09:15 | Inpatient (IN) | payer BC, SELFPAY ==
[2021-01-12 17:16] VITALS: BMI 26.7
--- NOTE | 2021-08-29 09:42 | PM.OBHP.1 ---
OB HPI Date/Time Date of admission: 08/29/21 Date Patient Seen: 08/29/21 Time Patient Seen: 09:44 History of Present Condition Chief complaint: : 2 Para: 1 Estimated Date of Delivery: 08/29/21 Estimated Gestational Age (weeks): 40 Narrative: Mychal Mcneil is a 30 year old female admitted in active labor History of Present care: good care, initiated at week # (8), number of visits (14) and pounds weight gain (14) Dating criteria: LMP confirmed by 1st trimester US Ultrasounds: normal mid trimester US Obstetrical complications: none Medical complications: none Preadmission Labs Blood type: O (+) positive -: Antibody screen: negative, GBS status: positive, HBsAG: negative, HIV: negative and RPR/VDLR: negative -: Chlamydia screen: not detected and Gonorrhea screen: not detected -: Rubella: immune and Varicella: immune HCAB: negative Quad screen: Normal 1 hr GTT: 97 Prior (ies) History: 11/22/2019 37 week gestation 6 lb 7 oz male Evaluation Evaluation Baseline heart rate: 150 Variability: Moderate (11-25) monitor accelerations: Present Monitor Decelerations: Absent Contraction Frequency (minutes): 3 Uterine Contraction Intensity: Strong/Firm Category of Tracing: Reactive Status: Category l Dilation (cm): 4 Effacement (%): 90 station: 0 Position of cervix: posterior PFSH Medical History Anemia (2005) Chicken pox (1995) Eczema (1999) Endometriosis (2010) Fractures (2003) Hemorrhoid (2013) History of being hospitalized (~01/12/21) Hypertension affecting in third trimester Infertility Irregular menstrual cycle (2010) Irritable bowel syndrome (2009) Migraines (2007) Oligo-ovulation with amenorrhea Ovarian cyst (2011) Painful menstrual periods (2010) Seasonal allergies (2007) (spontaneous vaginal delivery) (~11/22/19) Tinnitus (2009) Vaginal delivery (~11/22/19) Surgical History Anesthesia History of esophagogastroduodenoscopy (EGD) (05/21/14) History of knee surgery (11/08/14) Status post colonoscopy (05/21/14) Family History Father Cancer High cholesterol Brain cancer Seizure CVA (cerebral vascular accident) Enlarged heart Grandfather Heart disease Congestive heart failure Family estrangement Grandmother Cancer Family estrangement Mother Type 2 diabetes mellitus Depression Hypertension Mental health problem , twin with loss of one fetus Grandfather Hemorrhagic stroke Grandmother Heart disease Heart attack Family estrangement Brother Developmental delay Brother Addiction Other Colon polyps Social History marital status: number of children: 1 household members: spouse and children lives independently: Yes pets and animals: Yes (Dogs X 2) education level: college occupational status: employed ( ) current occupational exposures/hazards: Yes (Radiology and Fluorscopy ) special neena needs: No Smoking Status: Never smoker second hand exposure: No alcohol intake: former (pre- : social ) substance use type: does not use Meds Home Medications and Allergies Home Medications Medication Instructions Recorded Confirmed Type cetirizine 10 mg tablet (Zyrtec) 10 mg PO DAILY PRN 02/23/19 08/26/21 History prenat.vits,boyd,hth-stai-lhyge 1 tab PO DAILY 04/18/19 08/26/21 History omeprazole 40 mg capsule,delayed 40 mg PO DAILY #30 cap 04/24/21 08/26/21 Rx release Allergies Allergy/AdvReac Type Severity Reaction Status Date / Time Sulfa (Sulfonamide Allergy Intermediate Vomiting Verified 08/26/21 11:23 Antibiotics) and thick [SULFA (SULFONAMIDE feeling in ANTIBIOTICS)] my throat adhesive Allergy Mild SENSITIVE Verified 08/26/21 11:23 SKIN amoxicillin Allergy Mild RASH Verified 08/26/21 11:23 latex Allergy Mild LOCAL Verified 08/26/21 11:23 REDNESS codeine AdvReac Mild VOMITING Verified 08/26/21 11:23 Review of Systems Review of Systems Narrative: Good movement. No leakage of fluid. Regular painful contractions. No headaches, scotomata, epigastric pain. OB Exam Narrative Exam Narrative: Blood pressure 135/82, pulse of 114, temperature 96.3? HEENT exam within normal limits. Lungs are clear to auscultation percussion. Heart is regular rate and rhythm no S3-S4 murmurs. Abdomen is gravid, nontender Fetus is vertex. Extremities without edema and nontender Assessment and Plan Assessment and Plan Assessment and Plan narrative: 40 week gestation admitted in active labor. Anticipate vaginal delivery.
[2021-08-29 10:20] LABS: Add Manual Diff / Slide Review NO; Basophils Absolute Auto 0 /uL (0-100); Basophils Percent Auto 0.4 % (0-2); Eosinophils Absolute Auto 0 /uL (0-450); Eosinophils Percent Auto 0.5 % (2-4); Hematocrit 35.4 % (36-46); Hemoglobin 12.1 g/dL (12.0-16.0); Lymphocytes Absolute Auto 2100 /uL (1100-4500); Lymphocytes Percent Auto 23.2 % (25-40); Mean Corpuscular HGB Conc 34.1 % (30-36); Mean Corpuscular Hemoglobin 27.9 PG (26-34); Mean Corpuscular Volume 81.9 fL (80-100); Monocytes Absolute Auto 500 /uL (0-900); Monocytes Percent Auto 5.3 % (3-14); Neutrophils Absolute Auto 6400 /uL (1500-7000); Neutrophils Percent Auto 70.6 % (50-75); Platelet Count 224 X10^3/uL (150-400); Red Blood Cell Count 4.32 X10^6/uL (4.0-5.2); Red Cell Distribution Width 12.9 % (11.6-14.8); White Blood Cell Count 9.1 X10^3/uL (4.5-11.0)
[2021-08-29] MEDS: LACTATED RINGERS 1,000 ML 100 ML IV (10:23)
[2021-08-29] MEDS: CLINDAMYCIN 900 MG/50 ML PIGGYBACK 50 MG IV (10:23)
[2021-08-29] MEDS: OXYTOCIN PREMIX 30 UNIT/500 ML PLAST..BAG 200 UNIT IV (11:40)
[2021-08-29] MEDS: fentaNYL 100 MCG/2 ML INJ IV (11:41)
--- NOTE | 2021-08-29 11:45 | P.PCNOB_ITS ---
Labor & Delivery Delivery date: 08/29/21 Intrapartal Events: Precipitous Labor < 3 hours and Acceleration Cervical ripening method: none Induction method: none Delivery monitor: external FHT and external uterine Route of delivery: L&D Laceration Description: Perineal - 2nd Degree Delivery repair: vicryl and chromic Estimated blood loss (mL): 300 Anesthesia Type: None Narrative: This patient was admitted in early labor at term. She progressed rapidly, and was delivered of a healthy baby girl, apgars 9+9, weight 6#1oz. There was no nuchal cord and the shoulders delivered with ease, though the left arm was in a compound presentation. The placenta delivered intact shortly thereafter. Dr. Derrek farias completed the repair of a 2nd degree perineal laceration. [place] Baby 1: Infant gender: Male Presentation: vertex Position: Left Occiput Anterior (compound left arm) Placenta delivery description: Spontaneous Cord Vessel Description: 3 Vessels score (1 min): 9 score (5 min): 9 weight: 6 lb 1 oz Plan for aftercare: Routine care
[2021-08-29] MEDS: ACETAMINOPHEN 325 MG TABLET 650 MG PO ×2 (14:02→21:05)
[2021-08-29] MEDS: DERMOPLAST SPRAY 20% 60 ML 1 SPRAY TOP (14:03)
[2021-08-29] MEDS: IBUPROFEN 600 MG TABLET PO ×2 (14:03→21:05)
[2021-08-29] MEDS: METHYLERGONOVINE 0.2 MG TABLET PO (14:18)
[2021-08-30] MEDS: ACETAMINOPHEN 325 MG TABLET 650 MG PO ×2 (03:55→10:08)
[2021-08-30] MEDS: IBUPROFEN 600 MG TABLET PO ×2 (03:56→10:03)
[2021-08-30] MEDS: PRENATAL VIT,CALC/IRON/FOLIC 1 TABLET 1 TAB PO (10:03)
[2021-08-30] MEDS: LANOLIN OINT 7 GM 1 APPLIC TOP (10:05)
--- NOTE | 2021-08-30 11:44 | P.DS_ITS ---
Discharge Providers Provider Date of admission: 08/29/21 09:15 Discharge Date: 08/30/21 Primary care physician: Abe Coffey MD Consults: 08/29/21 10:00 Consult to Anesthesiology Urgent Comment: Consulting Provider: Anesthesiologist Reason for consultation: Epidural Has provider been notified: No 08/30/21 11:44 Consult to [employer] Routine Comment: Discharge provider: Autumn Mcallister MD Summary Hospital Course Date Patient Seen: 08/30/21 Time Patient Seen: 11:45 Diagnoses: 40 week gestation with spontaneous vaginal delivery and repair of second-degree tear Hospital Course: Patient arrived on Labor and delivery in active labor. She had a spontaneous vaginal delivery with repair of a second-degree tear. Patient is urinating and ambulating well. Pain is under control. No headaches, scotomata, epigastric pain. Mild lochia. Peripartum Data Infant Delivery Method: Natural Vaginal Laceration Description: Perineal - 2nd Degree complications: none 1: Gender: Male Disposition of : home Discharge Diagnosis (1) Vaginal delivery: Status: Acute Problem Details: Second-degree perineal tear Status at Discharge Cognitive/behavioral status at discharge: oriented Functional status at discharge: independent ambulation Overall status at discharge: patient is progressing back to baseline Time Spent with Patient Time attestation: Total time spent providing and/or coordinating discharge services: Time spent: Less than 30 minutes Objective Labs Result Diagrams: 08/29/21 10:00 Exam Vital Signs (past 8 hours): Blood pressure 113/63, pulse 72, temperature 98.5? Narrative Exam Narrative: Abdomen is soft, nontender. Uterus is firm, at U, nontender. Mild lochia. Perineal tear repair is intact. Extremities without edema and nontender. Patient's blood type is O positive, rubella immune, she received Tdap in the 3rd trimester. Discharge Plan Discharge Plan Patient Disposition: Home Discharge orders & Medications Prescriptions: New ibuprofen 600 mg Tablet 600 mg PO Q6HR PRN (Reason: Pain, Mild (1-3)) Qty: 20 0RF Continued cetirizine [Zyrtec] 10 mg tablet 10 mg PO DAILY PRN (Reason: Allergy Symptoms) 0RF prenat.vits,boyd,ubd-ligp-mcuhl Tablet 1 tab PO DAILY 0RF omeprazole 40 mg capsule,delayed release(DR/EC) 40 mg PO DAILY Qty: 30 3RF Follow up/Referrals: Autumn Mcallister MD [Physician] - 1 Month Abe Coffey MD [Primary Care Provider] - Diet/Activity/Treatments Diet: Regular Activity: Nothing in vagina for 6 weeks Skin/Wound/Dressing Care Report to your healthcare provider any signs of infection, such as:: chills, fever and increased pain Discharge Data Primary Care Provider: Abe Coffey
[2021-08-30 13:09] VITALS: BP 120/77; PULSE 76; RESP 17; TEMP 36.7
== END 2021-08-30 14:35 | disposition home or self-care (01) | DRG 807 ==
PROVIDERS: Admitting Provider Specialist; PCP Family Medicine; Referring Provider Specialist; Visit Provider Specialist
DX: O48.0 Post-term pregnancy (principal); Z37.0 Single live birth; Z3A.40 40 weeks gestation of pregnancy; O99.824 Streptococcus B carrier state complicating childbirth; O62.3 Precipitate labor; O70.1 Second degree perineal laceration during delivery; O64.5XX0 Obstructed labor due to compound presentation, not applicable or unspecified
CPT/HCPCS: 36415; 59050; 59400; 85025; 86850; 86900; 86901; G0379; J2590; J3010

== ENCOUNTER → 2022-01-14 15:09 | Outpatient (CLI) | payer BC, SELFPAY ==
[2021-01-12 17:16] VITALS: BMI 26.7
== END ==
PROVIDERS: PCP Family Medicine; Visit Provider Physician Assistant
DX: J02.9 Acute pharyngitis, unspecified (principal); Z20.9 Contact with and (suspected) exposure to unspecified communicable disease
CPT/HCPCS: 87070

== ENCOUNTER → 2022-06-03 14:55 | Outpatient (CLI) | payer BC, SELFPAY ==
[2021-01-12 17:16] VITALS: BMI 26.7
== END ==
PROVIDERS: PCP Family Medicine; Referring Provider Internal Medicine; Visit Provider Internal Medicine
DX: Z23 Encounter for immunization (principal)
CPT/HCPCS: 90471; 90686

== ENCOUNTER 2023-01-12 12:48 | Emergency (ER) | payer BC, SELFPAY ==
[2021-01-12 17:16] VITALS: BMI 26.7
[2023-01-12] VITALS (22 sets, daily range): BP systolic 115–143; BP diastolic 58–100; PULSE 72–109; RESP 15–18; TEMP 36.1; O2SAT 84–100; BMI 25.4
--- NOTE | 2023-01-12 | DI.RAD.S_ITS ---
PROCEDURE: XR KNEE RT 1TO2V INDICATIONS: PAIN TECHNIQUE: 2 views of the knee were acquired. COMPARISON: [facility], CR, XR TIBIA FIBULA RT 2V, 01/12/2023, 13:28. [facility], CR, KNEE 3V LEFT, 08/29/2014, 11:40. FINDINGS: Bones: Comminuted, impacted fracture of the proximal right fibula involving the fibular head. There is a comminuted, transverse fracture of the proximal right tibial metaphysis with a vertical component involving the posterior tibial plateau demonstrating intra-articular extension. Soft tissues: Moderate-sized joint effusion/hemarthrosis of the right knee. No suspicious soft tissue calcifications. IMPRESSION: Comminuted proximal right tibial fracture with impaction and intra-articular extension. Comminuted, impacted fracture of the right fibular head. Lipohemarthrosis. Dictated by: Randall Sanchez M.D. on 01/12/2023 at 14:39 Approved by: Randall Sanchez M.D. on 01/12/2023 at 14:41
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
--- NOTE | 2023-01-12 13:53 | ED_ITS ---
HPI - Extremity Injury (Lower) <Yahir Rivera MD - Last Filed: 01/13/23 08:35> General Chief Complaint: Extremity Injury, Lower Stated Complaint: [facility] Time Seen by Provider: 01/12/23 13:51 Source: patient Mode of arrival: Family Vehicle History of Present Illness HPI Narrative: [facility] to [facility] right [facility]. Patient was bouncing and jumped at the same time causing immediate transfer energy from the [facility] up to her knee when she landed. No prior history of knee injury/surgery. Related Data Previous Rx's Medication Instructions Recorded fluoxetine 20 mg capsule 20 mg PO DAILY #90 caps 12/21/22 Allergies Allergy/AdvReac Type Severity Reaction Status Date / Time Sulfa (Sulfonamide Allergy Intermediate Vomiting Verified 01/12/23 13:30 Antibiotics) and thick [SULFA (SULFONAMIDE feeling in ANTIBIOTICS)] my throat amoxicillin Allergy Mild RASH Verified 01/12/23 13:30 adhesive AdvReac Mild SENSITIVE Verified 01/12/23 14:12 SKIN codeine AdvReac Mild VOMITING Verified 01/12/23 13:30 latex AdvReac Mild LOCAL Verified 01/12/23 14:12 REDNESS Review of Systems <Yahir Rivera MD - Last Filed: 01/13/23 08:35> Review of Systems Narrative: GENERAL: negative chills, fatigue, malaise, fever, sweats. HEENT: negative sinus pain, ear pain, sore throat RESPIRATORY: negative dyspnea, cough CARDIOVASCULAR: negative chest pain, palpitations GASTROINTESTINAL: negative nausea, vomiting, abdominal pain : negative dysuria, frequency, hematuria MUSCULOSKELETAL: negative muscle, positive bony pain SKIN: negative rash, skin lesions NEUROLOGIC: negative weakness, numbness ROS Unobtainable: All systems reviewed & are unremarkable except as noted in HPI and below Patient History <Yahir Rivera MD - Last Filed: 01/13/23 08:35> Medical History Anemia (2005) Chicken pox (1995) COVID-19 virus infection Eczema (1999) Endometriosis (2010) Fractures (2003) Hemorrhoid (2013) History of being hospitalized (~01/12/21) Hypertension affecting in third trimester Infertility Irregular menstrual cycle (2010) Irritable bowel syndrome (2009) Kidney stone complicating (~06/2021) Migraines (2007) Oligo-ovulation with amenorrhea Ovarian cyst (2011) Painful menstrual periods (2010) Pyelonephritis Seasonal allergies (2007) (spontaneous vaginal delivery) (~11/22/19) Tinnitus (2009) Vaginal delivery (~11/22/19) Vaginal delivery (~08/29/21) Surgical History Anesthesia History of esophagogastroduodenoscopy (EGD) (05/21/14) History of knee surgery (11/08/14) Status post colonoscopy (05/21/14) Family History Father Cancer High cholesterol Brain cancer Seizure CVA (cerebral vascular accident) Enlarged heart Grandfather Heart disease Congestive heart failure Family estrangement Grandmother Cancer Family estrangement Mother Type 2 diabetes mellitus Depression Hypertension Mental health problem , twin with loss of one fetus Grandfather Hemorrhagic stroke Grandmother Heart disease Heart attack Family estrangement Brother Developmental delay Brother Addiction Other Colon polyps Social History marital status: number of children: 1 household members: spouse and children lives independently: Yes pets and animals: Yes (Dogs X 2) education level: college occupational status: employed ([employer] ) current occupational exposures/hazards: Yes (Radiology and Fluorscopy ) special neena needs: No Smoking Status: Never smoker second hand exposure: No alcohol intake: former (pre- : social ) substance use type: does not use Smoking Status: Never smoker alcohol intake frequency: 0-2 drinks per day Substance Use Type: does not use Exam <Yahir Rivera MD - Last Filed: 01/13/23 08:35> Narrative Exam Narrative: GENERAL: in no distress, not toxic not dyspneic HEAD: Normocephalic. EYES: Pupils equal round ENT: Mucous membranes moist. EXTREMITIES: Examination right lower extremity me to toes exposed. Foot warm soft and pink strong pedal pulse brisk cap refills light touch intact to toes wiggles toes. Able to flex and extend at the ankle. No gross deformity. There is edema to the anterior right knee. Limited range of motion and movement due to pain. Skin is intact. NEURO: AOx4. SKIN: Warm and dry PSYCH: Not anxious, is cooperative Initial Vital Signs Initial Vital Signs: Vital Signs Temperature 97.0 F L 01/12/23 13:24 Pulse Rate 90 01/12/23 13:24 Respiratory Rate 15 01/12/23 13:24 Blood Pressure 143/100 H 01/12/23 13:24 Pulse Oximetry 100 01/12/23 13:24 Oxygen Delivery Method Room Air 01/12/23 13:24 <Dora Brown MD - Last Filed: 01/13/23 07:21> Initial Vital Signs Initial Vital Signs: Vital Signs Temperature 97.0 F L 01/12/23 13:24 Pulse Rate 90 01/12/23 13:24 Respiratory Rate 15 01/12/23 13:24 Blood Pressure 143/100 H 01/12/23 13:24 Pulse Oximetry 100 01/12/23 13:24 Oxygen Delivery Method Room Air 01/12/23 13:24 Course <Yahir Rivera MD - Last Filed: 01/13/23 08:35> Orders Ordered: Discontinued Medications Diazepam (Diazepam 10 Mg/2 Ml Syringe) 5 mg IV NOW ONE Stop: 01/12/23 17:16 Last Admin: 01/12/23 17:30 Dose: 5 mg Documented By: RADHA Hydromorphone HCl (Hydromorphone 1 Mg Inj) 1 mg IV NOW ONE Stop: 01/12/23 13:53 Last Admin: 01/12/23 14:13 Dose: 1 mg Documented By: RADHA Hydromorphone HCl (Hydromorphone 1 Mg Inj) 1 mg IV NOW ONE Stop: 01/12/23 14:42 Last Admin: 01/12/23 14:57 Dose: 1 mg Documented By: RADHA Hydromorphone HCl (Hydromorphone 0.5 Mg Inj) 1 mg IV NOW ONE Stop: 01/12/23 16:28 Last Admin: 01/12/23 16:42 Dose: 1 mg Documented By: RADHA Hydromorphone HCl (Hydromorphone 0.5 Mg Inj) 0.5 mg IV Q15MIN PRN PRN Reason: Pain, Last Admin: 01/12/23 21:28 Dose: 0.5 mg Documented By: Admin: 01/12/23 19:19 Dose: 0.5 mg Documented By: GERTRUDE Hydromorphone HCl (Hydromorphone 1 Mg Inj) 1 mg IV NOW ONE Stop: 01/12/23 18:48 Last Admin: 01/12/23 18:50 Dose: 1 mg Documented By: GERTRUDE Sodium Chloride (Normal Saline 0.9%) 1,000 mls @ 1,000 mls/hr IV BOLUS ONE Stop: 01/12/23 22:51 Last Infusion: 01/12/23 22:05 Dose: 1,000 mls/hr Documented By: Admin: 01/12/23 21:59 Dose: 1,000 mls/hr Documented By: GERTRUDE Ketamine HCl (Ketamine 500 Mg/10 Ml Inj) 5.8967 mg 0.1 mg/kg (5.8967 mg) IV NOW ONE Stop: 01/12/23 19:51 Last Admin: 01/12/23 20:01 Dose: 5.8967 mg Documented By: GERTRUDE Ketorolac Tromethamine (Ketorolac 30 Mg/Ml Vial) 15 mg IV NOW ONE Stop: 01/12/23 19:51 Last Admin: 01/12/23 19:59 Dose: 15 mg Documented By: GERTRUDE Ondansetron HCl (Ondansetron 4 Mg/2 Ml Inj) 4 mg IV NOW ONE Stop: 01/12/23 13:53 Last Admin: 01/12/23 14:13 Dose: 4 mg Documented By: RADHA Ondansetron HCl (Ondansetron 4 Mg/2 Ml Inj) 4 mg IV NOW ONE Stop: 01/12/23 18:48 Last Admin: 01/12/23 18:50 Dose: 4 mg Documented By: GERTRUDE Vital Signs Vital signs: Vital Signs - 8 hr 01/12/23 14:21 01/12/23 14:22 01/12/23 14:22 Pulse Rate 87 86 Respiratory Rate Blood Pressure 123/82 Pulse Oximetry 100 100 Oxygen Delivery Method Oxygen Flow Rate 01/12/23 14:30 01/12/23 14:30 01/12/23 14:58 Pulse Rate 72 Respiratory Rate Blood Pressure 139/72 135/62 Pulse Oximetry 99 Oxygen Delivery Method Oxygen Flow Rate 01/12/23 14:58 01/12/23 15:00 01/12/23 15:00 Pulse Rate 83 87 Respiratory Rate Blood Pressure 120/58 L Pulse Oximetry 97 95 Oxygen Delivery Method Oxygen Flow Rate 01/12/23 15:17 01/12/23 15:17 01/12/23 15:30 Pulse Rate 91 H Respiratory Rate Blood Pressure 131/72 115/62 Pulse Oximetry 97 Oxygen Delivery Method Oxygen Flow Rate 01/12/23 15:30 01/12/23 16:00 01/12/23 16:00 Pulse Rate 78 87 Respiratory Rate Blood Pressure 117/82 Pulse Oximetry 95 99 Oxygen Delivery Method Oxygen Flow Rate 01/12/23 16:30 01/12/23 16:30 01/12/23 17:00 Pulse Rate 80 Respiratory Rate Blood Pressure 127/72 122/65 Pulse Oximetry 99 Oxygen Delivery Method Nasal Cannula Oxygen Flow Rate 2 01/12/23 17:00 01/12/23 18:29 01/12/23 18:30 Pulse Rate 87 107 H 109 H Respiratory Rate 18 Blood Pressure Pulse Oximetry 99 100 100 Oxygen Delivery Method Oxygen Flow Rate 01/12/23 19:08 01/12/23 19:10 01/12/23 19:10 Pulse Rate 90 98 H Respiratory Rate Blood Pressure 129/66 Pulse Oximetry 100 100 Oxygen Delivery Method Oxygen Flow Rate 01/12/23 19:20 01/12/23 19:20 01/12/23 19:30 Pulse Rate 92 H Respiratory Rate 16 Blood Pressure 123/59 L 119/58 L Pulse Oximetry 100 Oxygen Delivery Method Oxygen Flow Rate 01/12/23 19:30 01/12/23 20:00 01/12/23 20:00 Pulse Rate 107 H 101 H Respiratory Rate Blood Pressure 119/72 Pulse Oximetry 99 99 Oxygen Delivery Method Oxygen Flow Rate 01/12/23 20:27 Pulse Rate Respiratory Rate 16 Blood Pressure Pulse Oximetry 84 L Oxygen Delivery Method Room Air Oxygen Flow Rate <Dora Brown MD - Last Filed: 01/13/23 07:21> Orders Ordered: Discontinued Medications Diazepam (Diazepam 10 Mg/2 Ml Syringe) 5 mg IV NOW ONE Stop: 01/12/23 17:16 Last Admin: 01/12/23 17:30 Dose: 5 mg Documented By: NR Hydromorphone HCl (Hydromorphone 1 Mg Inj) 1 mg IV NOW ONE Stop: 01/12/23 13:53 Last Admin: 01/12/23 14:13 Dose: 1 mg Documented By: RADHA Hydromorphone HCl (Hydromorphone 1 Mg Inj) 1 mg IV NOW ONE Stop: 01/12/23 14:42 Last Admin: 01/12/23 14:57 Dose: 1 mg Documented By: RADHA Hydromorphone HCl (Hydromorphone 0.5 Mg Inj) 1 mg IV NOW ONE Stop: 01/12/23 16:28 Last Admin: 01/12/23 16:42 Dose: 1 mg Documented By: RADHA Hydromorphone HCl (Hydromorphone 0.5 Mg Inj) 0.5 mg IV Q15MIN PRN PRN Reason: Pain, Last Admin: 01/12/23 21:28 Dose: 0.5 mg Documented By: Admin: 01/12/23 19:19 Dose: 0.5 mg Documented By: GERTRUDE Hydromorphone HCl (Hydromorphone 1 Mg Inj) 1 mg IV NOW ONE Stop: 01/12/23 18:48 Last Admin: 01/12/23 18:50 Dose: 1 mg Documented By: GERTRUDE Sodium Chloride (Normal Saline 0.9%) 1,000 mls @ 1,000 mls/hr IV BOLUS ONE Stop: 01/12/23 22:51 Last Infusion: 01/12/23 22:05 Dose: 1,000 mls/hr Documented By: Admin: 01/12/23 21:59 Dose: 1,000 mls/hr Documented By: GERTRUDE Ketamine HCl (Ketamine 500 Mg/10 Ml Inj) 5.8967 mg 0.1 mg/kg (5.8967 mg) IV NOW ONE Stop: 01/12/23 19:51 Last Admin: 01/12/23 20:01 Dose: 5.8967 mg Documented By: GERTRUDE Ketorolac Tromethamine (Ketorolac 30 Mg/Ml Vial) 15 mg IV NOW ONE Stop: 01/12/23 19:51 Last Admin: 01/12/23 19:59 Dose: 15 mg Documented By: GERTRUDE Ondansetron HCl (Ondansetron 4 Mg/2 Ml Inj) 4 mg IV NOW ONE Stop: 01/12/23 13:53 Last Admin: 01/12/23 14:13 Dose: 4 mg Documented By: NR Ondansetron HCl (Ondansetron 4 Mg/2 Ml Inj) 4 mg IV NOW ONE Stop: 01/12/23 18:48 Last Admin: 01/12/23 18:50 Dose: 4 mg Documented By: GERTRUDE Vital Signs Vital signs: Vital Signs - 8 hr 01/12/23 14:21 01/12/23 14:22 01/12/23 14:22 Pulse Rate 87 86 Respiratory Rate Blood Pressure 123/82 Pulse Oximetry 100 100 Oxygen Delivery Method Oxygen Flow Rate 01/12/23 14:30 01/12/23 14:30 01/12/23 14:58 Pulse Rate 72 Respiratory Rate Blood Pressure 139/72 135/62 Pulse Oximetry 99 Oxygen Delivery Method Oxygen Flow Rate 01/12/23 14:58 01/12/23 15:00 01/12/23 15:00 Pulse Rate 83 87 Respiratory Rate Blood Pressure 120/58 L Pulse Oximetry 97 95 Oxygen Delivery Method Oxygen Flow Rate 01/12/23 15:17 01/12/23 15:17 01/12/23 15:30 Pulse Rate 91 H Respiratory Rate Blood Pressure 131/72 115/62 Pulse Oximetry 97 Oxygen Delivery Method Oxygen Flow Rate 01/12/23 15:30 01/12/23 16:00 01/12/23 16:00 Pulse Rate 78 87 Respiratory Rate Blood Pressure 117/82 Pulse Oximetry 95 99 Oxygen Delivery Method Oxygen Flow Rate 01/12/23 16:30 01/12/23 16:30 01/12/23 17:00 Pulse Rate 80 Respiratory Rate Blood Pressure 127/72 122/65 Pulse Oximetry 99 Oxygen Delivery Method Nasal Cannula Oxygen Flow Rate 2 01/12/23 17:00 01/12/23 18:29 01/12/23 18:30 Pulse Rate 87 107 H 109 H Respiratory Rate 18 Blood Pressure Pulse Oximetry 99 100 100 Oxygen Delivery Method Oxygen Flow Rate 01/12/23 19:08 01/12/23 19:10 01/12/23 19:10 Pulse Rate 90 98 H Respiratory Rate Blood Pressure 129/66 Pulse Oximetry 100 100 Oxygen Delivery Method Oxygen Flow Rate 01/12/23 19:20 01/12/23 19:20 01/12/23 19:30 Pulse Rate 92 H Respiratory Rate 16 Blood Pressure 123/59 L 119/58 L Pulse Oximetry 100 Oxygen Delivery Method Oxygen Flow Rate 01/12/23 19:30 01/12/23 20:00 08/01/23 20:00 Pulse Rate 107 H 101 H Respiratory Rate Blood Pressure 119/72 Pulse Oximetry 99 99 Oxygen Delivery Method Oxygen Flow Rate 01/12/23 20:27 Pulse Rate Respiratory Rate 16 Blood Pressure Pulse Oximetry 84 L Oxygen Delivery Method Room Air Oxygen Flow Rate MDM - Extremity Injury (Lower) <Yahir Rivera MD - Last Filed: 01/13/23 08:35> Lab Data 01/12/23 19:10 01/12/23 19:10 Labs: Lab Results 01/12/23 01/12/23 01/12/23 Range/Units 15:48 18:50 19:10 WBC 12.7 H (4.5-11.0) X10^3/uL RBC 3.68 L (4.0-5.2) X10^6/uL Hgb 10.8 L (12.0-16.0) g/dL Hct 31.4 L (36-46) % MCV 85.5 (80-100) fL MCH 29.5 (26-34) PG MCHC 34.5 (30-36) % RDW 13.1 (11.6-14.8) % Plt Count 213 (150-400) X10^3/uL Neut % (Auto) 77.6 H (50-75) % Lymph % (Auto) 14.2 L (25-40) % Wolfe % (Auto) 7.9 (3-14) % Eos % (Auto) 0.1 L (2-4) % Baso % (Auto) 0.2 (0-2) % Neut # (Auto) 9900 H (1119-5824) /uL Lymph # (Auto) 1800 (0688-9853) /uL Wolfe # (Auto) 1000 H (0-900) /uL Eos # (Auto) 0 (0-450) /uL Baso # (Auto) 0 (0-100) /uL Sodium (137-145) mmol/L Potassium (3.4-5.1) mmol/L Chloride (98-107) mmol/L Carbon Dioxide (22-32) mmol/L BUN (7-17) mg/dL Creatinine (0.52-1.04) mg/dL Estimated GFR (>60) mL/min BUN/Creatinine Ratio (6-22) Glucose (70-100) mg/dL Calcium (8.4-10.2) mg/dL Total Bilirubin (0.2-1.3) mg/dL AST (14-36) IU/L ALT (<35) IU/L Alkaline Phosphatase (38-126) U/L Total Protein (6.3-8.2) g/dL Albumin (3.5-5.0) g/dL Globulin (1.7-4.1) g/dL Albumin/Globulin Ratio (1.0-2.8) Lipase (23-300) U/L Serum , Qual Negative (Negative) SARS-CoV-2 (PCR) Negative (Negative) 01/12/23 Range/Units 19:10 WBC (4.5-11.0) X10^3/uL RBC (4.0-5.2) X10^6/uL Hgb (12.0-16.0) g/dL Hct (36-46) % MCV (80-100) fL MCH (26-34) PG MCHC (30-36) % RDW (11.6-14.8) % Plt Count (150-400) X10^3/uL Neut % (Auto) (50-75) % Lymph % (Auto) (25-40) % Wolfe % (Auto) (3-14) % Eos % (Auto) (2-4) % Baso % (Auto) (0-2) % Neut # (Auto) (5943-1847) /uL Lymph # (Auto) (5167-3871) /uL Wolfe # (Auto) (0-900) /uL Eos # (Auto) (0-450) /uL Baso # (Auto) (0-100) /uL Sodium 130 L (137-145) mmol/L Potassium 3.6 (3.4-5.1) mmol/L Chloride 102 (98-107) mmol/L Carbon Dioxide 20 L (22-32) mmol/L BUN 8 (7-17) mg/dL Creatinine 0.44 L (0.52-1.04) mg/dL Estimated GFR > 60 (>60) mL/min BUN/Creatinine Ratio 18.2 (6-22) Glucose 88 (70-100) mg/dL Calcium 8.1 L (8.4-10.2) mg/dL Total Bilirubin 0.4 (0.2-1.3) mg/dL AST 22 (14-36) IU/L ALT 17 (<35) IU/L Alkaline Phosphatase 59 (38-126) U/L Total Protein 6.2 L (6.3-8.2) g/dL Albumin 3.7 (3.5-5.0) g/dL Globulin 2.5 (1.7-4.1) g/dL Albumin/Globulin Ratio 1.5 (1.0-2.8) Lipase 21 L (23-300) U/L Serum , Qual (Negative) SARS-CoV-2 (PCR) (Negative) Imaging Data CT lower extremity: Radiologist's Impression: [address] [address] [address] Scan Report Signed Patient: Mychal Mcneil MR#: [id number] : 1990 Acct:[id number] Age/Sex: 32 / F Date of Service: 01/12/23 Loc: [place] [address] Accession Number: [id number] ?? Procedure: CT LE RT wo con Ordering Provider: Yahir Rivera MD PROCEDURE:? CT LE RT WO CON ? INDICATIONS:? rt knee injury ? TECHNIQUE:? Noncontrast 1-1.5 mm axial sections acquired from the mid-patella to the proximal tibia, with coronal and sagittal reformats.? ? COMPARISON:? [facility], CR, XR KNEE RT 1TO2V, 01/12/2023, 13:34. ? FINDINGS:? Image quality:? Excellent.? ? Bones:? Acute comminuted fracture involving proximal tibia with fracture line extending to both medial and lateral tibial plateau is noted.? No significant depression at tibial plateau fracture site is seen.? Slight medial displacement of medial tibial fractures fragment is seen.? Slight up to 7 mm impaction at proximal tibial shaft fracture site is seen.? Acute comminuted fracture involving fibular head is also noted with medial and lateral displacement of fractured fibula head fragments.? No other fracture or dislocation is seen.? No suspicious bony lesions. ? Soft tissues:? Large lipohemarthrosis is noted.? No abnormal soft tissue calcifications or calcified intra-articular loose bodies.? No full-thickness quadriceps tendon or patellar tendon rupture.? Anterior and posterior cruciate ligaments are grossly intact to the extent visualized. ? ? IMPRESSION:? ? 1. Acute comminuted and displaced proximal tibial fracture extending to involve both medial and lateral tibial plateau as described above. ? 2. Acute comminuted and displaced fibular head fracture as above. ? 3. Large lipohemarthrosis.? No abnormal soft tissue calcifications.? No gross full-thickness tendon or ligament rupture. ? Dictated by: Piotr Rey M.D. on 01/12/2023 at 15:50 ? ? Approved by: Piotr Rey M.D. on 01/12/2023 at 15:53 ? Extremity x-ray #1: Radiologist's Impression: [address] [address] XRay Report Signed Patient: Mychal Mcneil MR#: [id number] : 1990 Acct:[id number] Age/Sex: 32 / F Date of Service: 01/12/23 Loc: 90A- Accession Number: [id number] ?? Procedure: XR ankle LT min 3V Ordering Provider: Yahir Rivera MD PROCEDURE:? XR ANKLE LT MIN 3V ? INDICATIONS:? tramopline accident ? TECHNIQUE:? 3 views of the ankle were acquired.? ? COMPARISON:? None. ? FINDINGS:? ? Bones:? No fractures or dislocations.? Ankle mortise is normally aligned.? No suspicious bony lesions.? Tiny plantar and dorsal calcaneal enthesophytes are seen. ? Soft tissues:? No tibiotalar joint effusion.? Achilles tendon appears normal.? ? ? IMPRESSION:? No acute left ankle fracture or dislocation.? Ankle mortise is congruent. ? ? ? Dictated by: Piotr Rey M.D. on 01/12/2023 at 14:43 ? ? Approved by: Piotr Rey M.D. on 01/12/2023 at 14:43 ? Extremity x-ray #2: Radiologist's Impression: [address] [address] XRay Report Signed Patient: Mychal Mcneil MR#: [id number] : 1990 Acct:[id number] Age/Sex: 32 / F Date of Service: 01/12/23 Loc: Accession Number: [id number] ?? Procedure: XR tibia fibula RT 2V Ordering Provider: Yahir Rivera MD PROCEDURE:? XR TIBIA FUBULA RT 2V ? INDICATIONS:? trampoline accident ? TECHNIQUE:? 2 views of the tibia and fibula were acquired.? ? COMPARISON:? [facility], CR, XR KNEE RT 1TO2V, 01/12/2023, 13:34. ? FINDINGS:? ? Bones:? Transverse, minimally impacted fracture involving the proximal right tibial metaphysis.? There is a posterior proximal right tibial fracture with intra- articular extension.? There is also an impacted, mildly comminuted fracture involving the head of the right fibula. ? Soft tissues:? No suspicious soft tissue calcifications or masses.? Lipohemarthrosis of the right knee. ? IMPRESSION:? Transverse, mildly impacted fracture of the proximal right tibial metaphysis.? There is also a vertical component involving the posterior proximal right tibial plateau with intra-articular extension. ? Transverse, impacted and comminuted fracture of the proximal right fibula. ? ? Lipohemarthrosis of the right knee.? ? Dictated by: Randall Sanchez M.D. on 01/12/2023 at 14:34 ? ? Approved by: Randall Sanchez M.D. on 01/12/2023 at 14:38 ? Extremity x-ray #3: Radiologist's Impression: [place] [address] XRay Report Signed Patient: Mychal Mcneil MR#: [id number] : 1990 Acct:[id number] Age/Sex: 32 / F Date of Service: 01/12/23 Loc: 90A-1 Accession Number: [id number] ?? Procedure: XR foot LT min 3V Ordering Provider: Yahir Rivera MD PROCEDURE:? XR FOOT LT MIN 3V ? INDICATIONS:? tramopline accident ? TECHNIQUE:? 3 views of the foot were acquired.? ? COMPARISON:? None. ? FINDINGS:? ? Bones:? Nondisplaced fracture involving plantar aspect of cuboid bone is seen best seen on lateral view.? No suspicious bony lesions.? ? Soft tissues:? No tibiotalar joint effusion.? Achilles tendon appears normal.? ? ? IMPRESSION:? Non bliss placed fracture involving inferior portion of left cuboid bone.? No other fracture or dislocation is seen.? ? Dictated by: Piotr Rey M.D. on 01/12/2023 at 14:44 ? ? Approved by: Piotr Rey M.D. on 01/12/2023 at 14:45 ? X-ray knee: Radiologist's Impression: [address] [address] XRay Report Signed Patient: Myhcal Mcneil MR#: [id number] : 1990 Acct:[id number] Age/Sex: 32 / F Date of Service: 01/12/23 Loc: 90A-1 Accession Number: [id number] ?? Procedure: XR knee RT 1to2V Ordering Provider: Yahir Rivera MD PROCEDURE:? XR KNEE RT 1TO2V ? INDICATIONS:? PAIN ? TECHNIQUE:? 2 views of the knee were acquired.? ? COMPARISON:? [facility], CR, XR TIBIA FIBULA RT 2V, 01/12/2023, 13:28.? [facility], CR, KNEE 3V LEFT, 08/29/2014, 11:40. ? FINDINGS:? ? Bones:? Comminuted, impacted fracture of the proximal right fibula involving the fibular head.? There is a comminuted, transverse fracture of the proximal right tibial metaphysis with a vertical component involving the posterior tibial plateau demonstrating intra-articular extension. ? Soft tissues:? Moderate-sized joint effusion/hemarthrosis of the right knee.? No suspicious soft tissue calcifications.? ? ? IMPRESSION:? Comminuted proximal right tibial fracture with impaction and intra- articular extension. ? Comminuted, impacted fracture of the right fibular head. ? Lipohemarthrosis. ? ? Dictated by: Randall Sanchez M.D. on 01/12/2023 at 14:39 ? ? Approved by: Randall Sanchez M.D. on 01/12/2023 at 14:41 ? MDM Narrative Medical decision making narrative: Patient brought here by from [employer] for injury to the right knee. Patient was bouncing and jumped at the same time causing immediate transfer energy from the trampoline up to her knee when she landed. No prior history of knee injury/surgery. After history and exam [facility] CC: Right knee pain Complicating co-morbidities: None Data collected from: Patient and Medical records reviewed: No recent visit for this complaint Differential considered: Includes but not limited to knee fracture knee dislocation knee sprain/strain/ankle fracture/sprain Exam documented above, pertinent findings include: Tender right knee with limited movement due to pain Lab Test results independently reviewed as above. Pertinent findings: Imaging studies independently reviewed: X-ray right foot ankle tib-fib knee and CT knee, findings of left cuboid bone fracture, comminuted impacted fracture of the right fibular head, comminuted proximal right fibular fracture with impaction and intra articular extension Consultations: 2:30 p.m. spoke with orthopedic, dr apodaca, he has reviewed imaging, he will see patient for admission and possible surgery today 5:53 p.m.. I spoke with [facility], dr gaffney, he has reviewed the films. Patient does not need urgent surgery, can follow up in the clinic with knee immobilizer and crutches. 6:00 p.m. s/w dr apodaca, unable to do the surgery today. He would like to see patient in the clinic for outpatient surgery 6:03 p.m.. I spoke with Dr. Ravindra stoner, orthopedics with [facility] in [place], he has reviewed the films. He recommends sending patient to [facility], it is a complicated fracture. Treatments: Uriel Hurley Re-evaluations: 2:40 p.m.. Reviewed results with patient and understands will need surgery here, likely today, updated foot and knee fracture, patient would like to have surgery, not delayed as she is working and has family obligations Discussion: Over for admission for surgical intervention. Diagnosis: Acute knee fracture Time 4:16 p.m.. Patient and family now decided they do not want surgery here. They would like to be transferred. They understand we will need to wait for available hospital bed as well as surgeon. The operating room as well as surgeon has been updated 6:05 p.m.. Sign out to Dr. Diane. Patient awaiting for call back for orthopedics for follow up. Does not want have surgery here. <Dora Brown MD - Last Filed: 01/13/23 07:21> Lab Data Labs: Lab Results 01/12/23 01/12/23 01/12/23 Range/Units 15:48 18:50 19:10 WBC 12.7 H (4.5-11.0) X10^3/uL RBC 3.68 L (4.0-5.2) X10^6/uL Hgb 10.8 L (12.0-16.0) g/dL Hct 31.4 L (36-46) % MCV 85.5 (80-100) fL MCH 29.5 (26-34) PG MCHC 34.5 (30-36) % RDW 13.1 (11.6-14.8) % Plt Count 213 (150-400) X10^3/uL Neut % (Auto) 77.6 H (50-75) % Lymph % (Auto) 14.2 L (25-40) % Wolfe % (Auto) 7.9 (3-14) % Eos % (Auto) 0.1 L (2-4) % Baso % (Auto) 0.2 (0-2) % Neut # (Auto) 9900 H (8177-3152) /uL Lymph # (Auto) 1800 (5408-6212) /uL Wolfe # (Auto) 1000 H (0-900) /uL Eos # (Auto) 0 (0-450) /uL Baso # (Auto) 0 (0-100) /uL Sodium (137-145) mmol/L Potassium (3.4-5.1) mmol/L Chloride (98-107) mmol/L Carbon Dioxide (22-32) mmol/L BUN (7-17) mg/dL Creatinine (0.52-1.04) mg/dL Estimated GFR (>60) mL/min BUN/Creatinine Ratio (6-22) Glucose (70-100) mg/dL Calcium (8.4-10.2) mg/dL Total Bilirubin (0.2-1.3) mg/dL AST (14-36) IU/L ALT (<35) IU/L Alkaline Phosphatase (38-126) U/L Total Protein (6.3-8.2) g/dL Albumin (3.5-5.0) g/dL Globulin (1.7-4.1) g/dL Albumin/Globulin Ratio (1.0-2.8) Lipase (23-300) U/L Serum , Qual Negative (Negative) SARS-CoV-2 (PCR) Negative (Negative) 01/12/23 Range/Units 19:10 WBC (4.5-11.0) X10^3/uL RBC (4.0-5.2) X10^6/uL Hgb (12.0-16.0) g/dL Hct (36-46) % MCV (80-100) fL MCH (26-34) PG MCHC (30-36) % RDW (11.6-14.8) % Plt Count (150-400) X10^3/uL Neut % (Auto) (50-75) % Lymph % (Auto) (25-40) % Wolfe % (Auto) (3-14) % Eos % (Auto) (2-4) % Baso % (Auto) (0-2) % Neut # (Auto) (0328-4779) /uL Lymph # (Auto) (3494-7571) /uL Wolfe # (Auto) (0-900) /uL Eos # (Auto) (0-450) /uL Baso # (Auto) (0-100) /uL Sodium 130 L (137-145) mmol/L Potassium 3.6 (3.4-5.1) mmol/L Chloride 102 (98-107) mmol/L Carbon Dioxide 20 L (22-32) mmol/L BUN 8 (7-17) mg/dL Creatinine 0.44 L (0.52-1.04) mg/dL Estimated GFR > 60 (>60) mL/min BUN/Creatinine Ratio 18.2 (6-22) Glucose 88 (70-100) mg/dL Calcium 8.1 L (8.4-10.2) mg/dL Total Bilirubin 0.4 (0.2-1.3) mg/dL AST 22 (14-36) IU/L ALT 17 (<35) IU/L Alkaline Phosphatase 59 (38-126) U/L Total Protein 6.2 L (6.3-8.2) g/dL Albumin 3.7 (3.5-5.0) g/dL Globulin 2.5 (1.7-4.1) g/dL Albumin/Globulin Ratio 1.5 (1.0-2.8) Lipase 21 L (23-300) U/L Serum , Qual (Negative) SARS-CoV-2 (PCR) (Negative) Imaging Data Extremity x-ray #1: Radiologist's Impression: PROCEDURE:? XR ANKLE LT MIN 3V ? INDICATIONS:? tramopline accident ? TECHNIQUE:? 3 views of the ankle were acquired.? ? COMPARISON:? None. ? FINDINGS:? ? Bones:? No fractures or dislocations.? Ankle mortise is normally aligned.? No suspicious bony lesions.? Tiny plantar and dorsal calcaneal enthesophytes are seen. ? Soft tissues:? No tibiotalar joint effusion.? Achilles tendon appears normal.? ? ? IMPRESSION:? No acute left ankle fracture or dislocation.? Ankle mortise is congruent. ? ? ? Dictated by: Piotr eRy M.D. on 01/12/2023 at 14:43 ? ? Approved by: Piotr Rey M.D. on 01/12/2023 at 14:43 ? Extremity x-ray #2: Radiologist's Impression: PROCEDURE:? XR TIBIA FUBULA RT 2V ? INDICATIONS:? trampoline accident ? TECHNIQUE:? 2 views of the tibia and fibula were acquired.? ? COMPARISON:? [facility], , XR KNEE RT 1TO2V, 01/12/2023, 13:34. ? FINDINGS:? ? Bones:? Transverse, minimally impacted fracture involving the proximal right tibial metaphysis.? There is a posterior proximal right tibial fracture with intra- articular extension.? There is also an impacted, mildly comminuted fracture involving the head of the right fibula. ? Soft tissues:? No suspicious soft tissue calcifications or masses.? Lipohemarthrosis of the right knee. ? IMPRESSION:? Transverse, mildly impacted fracture of the proximal right tibial metaphysis.? There is also a vertical component involving the posterior proximal right tibial plateau with intra-articular extension. ? Transverse, impacted and comminuted fracture of the proximal right fibula. ? ? Lipohemarthrosis of the right knee.? ? Dictated by: Randall Sanchez M.D. on 01/12/2023 at 14:34 ? ? Approved by: Randall Sanchez M.D. on 01/12/2023 at 14:38 ? Extremity x-ray #3: Radiologist's Impression: PROCEDURE:? XR FOOT LT MIN 3V ? INDICATIONS:? tramopline accident ? TECHNIQUE:? 3 views of the foot were acquired.? ? COMPARISON:? None. ? FINDINGS:? ? Bones:? Nondisplaced fracture involving plantar aspect of cuboid bone is seen best seen on lateral view.? No suspicious bony lesions.? ? Soft tissues:? No tibiotalar joint effusion.? Achilles tendon appears normal.? ? ? IMPRESSION:? Non bliss placed fracture involving inferior portion of left cuboid bone.? No other fracture or dislocation is seen.? ? Dictated by: Piotr Rey M.D. on 01/12/2023 at 14:44 ? ? Approved by: Piotr Rey M.D. on 01/12/2023 at 14:45 ? X-ray knee: Radiologist's Impression: PROCEDURE:? XR KNEE RT 1TO2V ? INDICATIONS:? PAIN ? TECHNIQUE:? 2 views of the knee were acquired.? ? COMPARISON:? [facility], CR, XR TIBIA FIBULA RT 2V, 01/12/2023, 13:28.? [facility], CR, KNEE 3V LEFT, 08/29/2014, 11:40. ? FINDINGS:? ? Bones:? Comminuted, impacted fracture of the proximal right fibula involving the fibular head.? There is a comminuted, transverse fracture of the proximal right tibial metaphysis with a vertical component involving the posterior tibial plateau demonstrating intra-articular extension. ? Soft tissues:? Moderate-sized joint effusion/hemarthrosis of the right knee.? No suspicious soft tissue calcifications.? ? ? IMPRESSION:? Comminuted proximal right tibial fracture with impaction and intra- articular extension. ? Comminuted, impacted fracture of the right fibular head. ? Lipohemarthrosis. ? ? Dictated by: Randall Sanchez M.D. on 01/12/2023 at 14:39 ? ? Approved by: Randall Sanchez M.D. on 01/12/2023 at 14:41 ? MDM Narrative Medical decision making narrative: Patient brought here by from [facility] for injury to the right knee. Patient was bouncing and jumped at the same time causing immediate transfer energy from the trampoline up to her knee when she landed. No prior history of knee injury/surgery. MDM CC: Right knee pain. Acute issue uncertain prognosis Complicating co-morbidities: None Data collected from: Patient and Medical records reviewed: No recent visit for this complaint Differential considered: Includes but not limited to knee fracture knee dislocation knee sprain/strain/ankle fracture/sprain, axial spine fractures Exam documented above, pertinent findings include: Tender right knee with limited movement due to pain Lab Test results independently reviewed as above. Pertinent findings: Imaging studies independently reviewed: CT chest abd pelvis: Findings no acute injuries nor new compression fractures CT cervical spine: no fractures XR TIB/Fib Right: no new distal findings XR right knee: Comminuted proximal right tibial plateau fracture with impaction and intra-articular extension. Comminuted impacted fibular head fracture lipohemarthrosis CT right knee: Comminuted displaced fracture involving both medial and lateral tibial plateau fracture, displaced fibular head comminuted fracture, large lipohemarthrosis no gross full-thickness tendon or ligament rupture XR right foot: No fractures XR Left foot: Nondisplaced fracture plantar aspect plantar aspect of cuboid bone ( no left knee or hip pain and not imaged) Consultations: 2:30 p.m. spoke with orthopedic, dr apodaca, he has reviewed imaging, he will see patient for admission and possible surgery today 5:53 p.m.. I spoke with [facility], dr gaffney, he has reviewed the films. Patient does not need urgent surgery, can follow up in the clinic with knee immobilizer and crutches. 6:00 p.m. s/w dr apodaca, unable to do the surgery today. He would like to see patient in the clinic for outpatient surgery 6:03 p.m.. I spoke with Dr. Ravindra stoner, orthopedics with [facility] in [place], he has reviewed the films. He recommends sending patient to [facility], it is a complicated fracture. 6:05 p.m.. Sign out to Dr. Brown. 6:[address] Brown care is assumed, patient is independently evaluated. Given the complex tibial plateau fracture call to [facility] and she is accepted as a direct ED to ED transfer after discussion with Dr. Lynn. Given the overriding pain in the knee and concern for significant axial loading further workup including pain scan of the chest abdomen pelvis with axial reconstruction as well as CT scan of the cervical spine are added. Pain is currently inadequately controlled and additional narcotics are being added to address this. Findings reviewed with patient including transfer plans Treatments: Parenteral Dilaudid, Zofran, ketamine for pain control potentiation Re-evaluations: 2:40 p.m.. Reviewed results with patient and understands will need surgery here, likely today, updated foot and knee fracture, patient would like to have surgery, not delayed as she is working and has family obligations 730pm pain has continued to be difficult to control. Have added 5 mg of IV ketamine and 15 mg of IV Toradol to the IV Dilaudid and this has provided relief needed. Discussion: Need for transfer and higher level of orthopedic care Diagnosis: Comminuted intra-articular right tibial plateau fracture, proximal fibular head fracture, left cuboid fracture Time 4:16 p.m.. Patient and family now decided they do not want surgery here. They would like to be transferred. They understand we will need to wait for available hospital bed as well as surgeon. The operating room as well as surgeon has been updated 928 pm patient is re-evaluated prior to ALS ground transport directly to [facility]. Pain is better controlled. I have reviewed all of her CT scans and findings including x-rays and anticipated interventions once arriving [facility]. Questions are answered, her pain is relatively controlled, she is hemodynamically stable and safe for transfer. <Dora Brown MD - Last Filed: 01/13/23 07:21> Critical Care Time Critical Care Time: Yes Total Critical Care Time: 37 Attestation: Critical care time is separate from other billable procedures. There is a high probability of a significant, sudden or life-threatening deterioration that re quires my full and direct attention, intervention and personal management. This critical care time includes consultation with family and other consulting doctors, review of records, and interpretation of data from labs, imaging as well as managements of severe pain, multiple consultations and transfer for trauma management Discharge Plan Departure Patient Disposition: [facility] Clinical Impression: Closed fracture of tibial plateau Qualifiers: Encounter type: initial encounter Laterality: right Qualified Code(s): S82.141A - Displaced bicondylar fracture of right tibia, initial encounter for closed fracture Closed fracture of head of fibula Qualifiers: Encounter type: initial encounter Laterality: right Qualified Code(s): S82.831A - Other fracture of upper and lower end of right fibula, initial encounter for closed fracture Closed left cuboid fracture Qualifiers: Encounter type: initial encounter Fracture alignment: nondisplaced Qualified Code(s): S92.215A - Nondisplaced fracture of cuboid bone of left foot, initial encounter for closed fracture Prescriptions: No Action fluoxetine 20 mg capsule 20 mg PO DAILY Qty: 90 1RF Referrals: Abe Coffey MD [Primary Care Provider] -
[2023-01-12] MEDS: HYDROMORPHONE 1 MG INJ IV ×3 (14:13→18:50)
[2023-01-12] MEDS: ONDANSETRON 4 MG/2 ML INJ IV ×2 (14:13→18:50)
--- NOTE | 2023-01-12 14:36 | DI.CT.S_ITS ---
PROCEDURE: CT LE RT WO CON INDICATIONS: rt knee injury TECHNIQUE: Noncontrast 1-1.5 mm axial sections acquired from the mid-patella to the proximal tibia, with coronal and sagittal reformats. COMPARISON: [facility], CR, XR KNEE RT 1TO2V, 01/12/2023, 13:34. FINDINGS: Image quality: Excellent. Bones: Acute comminuted fracture involving proximal tibia with fracture line extending to both medial and lateral tibial plateau is noted. No significant depression at tibial plateau fracture site is seen. Slight medial displacement of medial tibial fractures fragment is seen. Slight up to 7 mm impaction at proximal tibial shaft fracture site is seen. Acute comminuted fracture involving fibular head is also noted with medial and lateral displacement of fractured fibula head fragments. No other fracture or dislocation is seen. No suspicious bony lesions. Soft tissues: Large lipohemarthrosis is noted. No abnormal soft tissue calcifications or calcified intra-articular loose bodies. No full-thickness quadriceps tendon or patellar tendon rupture. Anterior and posterior cruciate ligaments are grossly intact to the extent visualized. IMPRESSION: 1. Acute comminuted and displaced proximal tibial fracture extending to involve both medial and lateral tibial plateau as described above. 2. Acute comminuted and displaced fibular head fracture as above. 3. Large lipohemarthrosis. No abnormal soft tissue calcifications. No gross full-thickness tendon or ligament rupture. Dictated by: Piotr Rey M.D. on 01/12/2023 at 15:50 Approved by: Piotr Rey M.D. on 01/12/2023 at 15:53
[2023-01-12 16:16] LABS: Pregnancy Test Serum,Qual Negative (Negative)
[2023-01-12] MEDS: HYDROMORPHONE 0.5 MG INJ 1 MG IV (16:42)
[2023-01-12] MEDS: diazePAM 10 MG/2 ML SYRINGE 5 MG IV (17:30)
--- NOTE | 2023-01-12 18:37 | DI.CT.S_ITS ---
PROCEDURE: CT CHEST ABD PEL W CON INDICATIONS: complex LE fx with axial compression trauma TECHNIQUE: After the administration of intravenous contrast, 5 mm thick sections acquired from the lung apices to the symphysis. 2.5 mm thick coronal and sagittal reformats were acquired. Additional 7 mm thick coronal maximum intensity projection (MIP) reformats acquired through the lungs. Optional 10-minute delayed imaging may be performed from the kidneys to the bladder. For radiation dose reduction, the following was used: automated exposure control, adjustment of mA and/or kV according to patient size. COMPARISON: [facility], CR, XR KNEE RT 1TO2V, 01/12/2023, 13:34. [facility], CR, XR ANKLE LT MIN 3V, 01/12/2023, 13:28. [facility], CR, XR FOOT LT MIN 3V, 01/12/2023, 13:28. [facility], CT, CT ANGIO CHEST PE PROTOCOL, 06/27/2021, 22:54. FINDINGS: Image quality: Excellent. CHEST: Lungs: No pulmonary contusions or lacerations. No acute airspace opacities. No pneumothorax or hemothorax. Central and peripheral airways appear patent and normal in caliber. Mediastinum: No mediastinal hematomas. Heart size is normal. No pericardial effusion. Thoracic aorta and pulmonary arteries demonstrate normal size and enhancement. No mediastinal or hilar adenopathy. Esophagus is normal in caliber. No hiatal hernia. Chest wall: No rib fractures. No subcutaneous emphysema. No axillary or supraclavicular adenopathy. Thyroid gland is unremarkable. ABDOMEN: Solid organs: Liver is normal in size and enhancement, without lacerations. Gallbladder is unremarkable. Biliary system is non-dilated. Pancreas enhances normally, without transection. Spleen is normal in size and enhancement, without lacerations. No adrenal hematomas. Both kidneys enhance normally, without hydronephrosis or lacerations. Peritoneum and bowel: No free fluid or air. Unenhanced bowel loops demonstrate normal wall thickness and caliber. Nodes and vessels: No retroperitoneal or mesenteric adenopathy. Aorta and inferior vena cava are normal in size and enhancement. Miscellaneous: No ventral hernias. PELVIS: Genitourinary: Bladder wall thickness is normal. Miscellaneous: No inguinal hernias or adenopathy. Bones: Pelvic ring and hip joints appear intact. No vertebral compression fractures. IMPRESSION: No visualized acute osseous or visceral injury. Dictated by: Stefani Rodriguez M.D. on 01/12/2023 at 20:01 Approved by: Stefani Rodriguez M.D. on 01/12/2023 at 20:04
--- NOTE | 2023-01-12 18:42 | DI.CT.S_ITS ---
PROCEDURE: CT CERVICAL SPINE WO CON INDICATIONS: extreme axial load with other trauma TECHNIQUE: Noncontrast 3 mm thick sections acquired from the skull base to the T4 level. Sagittal and coronal reformats were then constructed. For radiation dose reduction, the following was used: automated exposure control, adjustment of mA and/or kV according to patient size. COMPARISON: None. FINDINGS: Image quality: Excellent. Bones: No fractures or dislocations. Visualized superior ribs are intact. Soft tissues: Prevertebral soft tissues are normal in thickness. No paravertebral hematomas. No apical pneumothoraces. IMPRESSION: No visualized fracture. Dictated by: Stefani Rodriguez M.D. on 01/12/2023 at 19:55 Approved by: Stefani Rodriguez M.D. on 01/12/2023 at 19:55
[2023-01-12 19:17] LABS: COVID19 -Nasal RAPID Negative (Negative)
[2023-01-12] MEDS: HYDROMORPHONE 0.5 MG INJ IV ×2 (19:19→21:28)
[2023-01-12 19:27] LABS: Add Manual Diff / Slide Review NO; Basophils Absolute Auto 0 /uL (0-100); Basophils Percent Auto 0.2 % (0-2); Eosinophils Absolute Auto 0 /uL (0-450); Eosinophils Percent Auto 0.1 % (2-4); Hematocrit 31.4 % (36-46); Hemoglobin 10.8 g/dL (12.0-16.0); Lymphocytes Absolute Auto 1800 /uL (1100-4500); Lymphocytes Percent Auto 14.2 % (25-40); Mean Corpuscular HGB Conc 34.5 % (30-36); Mean Corpuscular Hemoglobin 29.5 PG (26-34); Mean Corpuscular Volume 85.5 fL (80-100); Monocytes Absolute Auto 1000 /uL (0-900); Monocytes Percent Auto 7.9 % (3-14); Neutrophils Absolute Auto 9900 /uL (1500-7000); Neutrophils Percent Auto 77.6 % (50-75); Platelet Count 213 X10^3/uL (150-400); Red Blood Cell Count 3.68 X10^6/uL (4.0-5.2); Red Cell Distribution Width 13.1 % (11.6-14.8); White Blood Cell Count 12.7 X10^3/uL (4.5-11.0)
[2023-01-12 19:40] LABS: Alanine Aminotransferase 17 IU/L (<35); Albumin 3.7 g/dL (3.5-5.0); Albumin Globulin Ratio 1.5 (1.0-2.8); Alkaline Phosphatase 59 U/L (38-126); Aspartate Aminotransferase 22 IU/L (14-36); BUN Creatinine Ratio 18.2 (6-22); Bilirubin Total 0.4 mg/dL (0.2-1.3); Blood Urea Nitrogen 8 mg/dL (7-17); Calcium 8.1 mg/dL (8.4-10.2); Carbon Dioxide 20 mmol/L (22-32); Chloride 102 mmol/L (98-107); Estimated Glomerular Filt Rate > 60 mL/min (>60); Globulin 2.5 g/dL (1.7-4.1); Glucose 88 mg/dL (70-100); HEMOLYSIS < 15 (0-50); Lipase 21 U/L (23-300); Potassium 3.6 mmol/L (3.4-5.1); Sodium 130 mmol/L (137-145); Total Protein 6.2 g/dL (6.3-8.2)
--- NOTE | 2023-01-12 19:52 | DI.RAD.S_ITS ---
PROCEDURE: XR FOOT RT MIN 3V INDICATIONS: pain TECHNIQUE: 3 views of the foot were acquired. COMPARISON: [facility], CR, XR FOOT LT MIN 3V, 01/12/2023, 13:28. FINDINGS: Bones: No fractures or dislocations. No suspicious bony lesions. Soft tissues: No tibiotalar joint effusion. Achilles tendon appears normal. IMPRESSION: 1. No fracture or dislocation. Dictated by: John Dutton M.D. on 01/12/2023 at 20:24 Approved by: John Dutton M.D. on 01/12/2023 at 20:28
[2023-01-12] MEDS: KETOROLAC 30 MG/ML VIAL 15 MG IV (19:59)
[2023-01-12] MEDS: KETAMINE 500 MG/10 ML INJ 5.8967 MG IV (20:01)
[2023-01-12] MEDS: SODIUM CHLORIDE 0.9% 1,000 ML 1000 ML IV (21:59)
== END 2023-01-12 22:06 | disposition short-term general hospital (02) ==
LOC: ED 14:40 → AC 15:49 → ED 18:29
PROVIDERS: Emergency Provider Emergency Medicine; PCP Family Medicine; Referring Provider Emergency Medicine
DX: S82.141A Displaced bicondylar fracture of right tibia, initial encounter for closed fracture (principal); S82.831A Other fracture of upper and lower end of right fibula, initial encounter for closed fracture; S92.212A Displaced fracture of cuboid bone of left foot, initial encounter for closed fracture; X50.0XXA Overexertion from strenuous movement or load, initial encounter; Y93.44 Activity, trampolining; Z20.822 Contact with and (suspected) exposure to COVID-19
CPT/HCPCS: 36415; 71260; 72125; 73560; 73590; 73610; 73630; 73700; 74177; 80053; 83690; 84703; 85025; 87635; 96374; 96375; 96376; 99285; 99291; C9803; J1170; J1885; J2405; J3360; Q9967

== ENCOUNTER → 2023-01-28 14:26 | Outpatient (CLI) | payer BC, SELFPAY ==
[2021-01-12 17:16] VITALS: BMI 26.7
--- NOTE | 2023-01-28 14:28 | DI.RAD.S_ITS ---
PROCEDURE: XR FOOT LT MIN 3V INDICATIONS: left foot cuboid fx and right tibial plateau fx TECHNIQUE: 3 views of the foot were acquired. COMPARISON: [facility], CR, XR FOOT RT MIN 3V, 01/12/2023, 19:50. FINDINGS: Bones: Redemonstration of nondisplaced fracture involving the plantar aspect of the cuboid bone, best seen on lateral view. No new fracture identified. Soft tissues: No tibiotalar joint effusion. Achilles tendon appears normal. IMPRESSION: Nondisplaced fracture involving the plantar aspect of the left cuboid, unchanged from prior. Dictated by: Lynnette Hanks M.D. on 01/30/2023 at 12:38 Approved by: Lynnette Hanks M.D. on 01/30/2023 at 12:44
--- NOTE | 2023-01-28 14:28 | DI.RAD.S_ITS ---
PROCEDURE: XR KNEE RT 3V INDICATIONS: tibial plateau fx TECHNIQUE: 3 views of the knee were acquired. COMPARISON: [facility], CR, XR KNEE RT 1TO2V, 01/12/2023, 13:34. FINDINGS: Bones: Status post fixation of proximal tibial plateau fracture using plate and screw construct. No evidence of hardware complication. Alignment is near anatomic. Redemonstration of comminuted fibular head fracture with similar posterior displacement of distal fracture fragment. No new fractures or dislocations. Soft tissues: Decreased joint effusion. No suspicious soft tissue calcifications. IMPRESSION: Status post ORIF of proximal tibia fracture in near anatomic alignment without evidence of hardware complication. Comminuted, impacted fracture of the right fibular head, in similar alignment to prior. Approved by: Lynnette Hanks M.D. on 01/30/2023 at 12:48
== END ==
PROVIDERS: PCP Family Medicine; Referring Provider Physician Assistant; Visit Provider Physician Assistant
DX: S82.141D Displaced bicondylar fracture of right tibia, subsequent encounter for closed fracture with routine healing (principal); S82.831D Other fracture of upper and lower end of right fibula, subsequent encounter for closed fracture with routine healing; S92.215D Nondisplaced fracture of cuboid bone of left foot, subsequent encounter for fracture with routine healing; X58.XXXD Exposure to other specified factors, subsequent encounter
CPT/HCPCS: 73562; 73630

== ENCOUNTER → 2023-05-14 14:25 | Outpatient (CLI) | payer BC, SELFPAY ==
[2021-01-12 17:16] VITALS: BMI 26.7
== END ==
PROVIDERS: Family Provider Physician Assistant; PCP Physician Assistant; Referring Provider Family Medicine; Visit Provider Family Medicine
DX: Z23 Encounter for immunization (principal)
CPT/HCPCS: 90471; 90686

== ENCOUNTER 2023-06-30 12:00 | Outpatient (RCR) | payer BC, SELFPAY ==
[2021-01-12 17:16] VITALS: BMI 26.7
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
--- NOTE | 2023-04-12 15:47 | PT.OPPOC ---
Physical, Occupational & Speech Therapy At [facility] Current Diagnoses Muscle weakness (generalized) (04/12/23) Difficulty in walking, not elsewhere classified (04/12/23) Displaced bicondylar fracture of right tibia, subsequent encounter for closed fracture with routine healing (04/12/23) Displaced fracture of cuboid bone of left foot, subsequent encounter for fracture with routine healing (04/12/23) Visit Care Team Role Provider Type Susie Esquivel PA-C Attending Provider Advanced Television Specialist Family Provider Primary Care Provider Referring Provider Specialty: Medical Address: [address] [place] [address] [place], [address] Email: [email or web address] Plan Of Care PT-OP-T Assessment and Plan Start: 04/12/23 07:32 Freq: Status: Active Protocol: Document 04/12/23 12:54 [facility] (Rec: 04/12/23 15:40 [facility] [id number]) Physical Therapy Assessment Rehab Potential Rehabilitation Potential Good Evaluation Complexity Number of Personal Factors/Comorbidities 3 or More Number of Body Systems Impaired 4 or More Clinical Presentation at Evaluation Evolving Impairments Impairments Activity Tolerance,Balance, Functional Activities, Functional Mobility,Gait,Pain, Posture,ROM,Soft Tissue Mobility,Strength Other Concerns Barriers to Rehabilitation pt has 18 month old and 3 year old at home that she has to care for and is hoping to return to work in [employer] Goals LEFS Impairment 47/80 Short Term Goal (STG) pt will improve LEFS to at least 58/80 to show improved functional ability. STG Duration 05/28/23 Dimensional Engineer Goal (LTG) pt will improve LEFS to at least 75/80 to show improved functional ability. 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 LTG Duration 07/05/23 ROM Short Term Goal (STG) Pt will be able to ext to fully straight (0) w/o inc pain. STG Duration 05/28/23 Dimensional Engineer Goal (LTG) Pt will be able flex knee to at least 120 deg in order to allow pt to ascend and descend stairs w/o inc pain. LTG Duration 07/05/23 kids Short Term Goal (STG) Pt will be able to squat and pickling drum operator 18 month old w/o inc pain greater than 2/10. STG Duration 05/28/23 Retirement Goal (LTG) Pt will be able to squat and pickling drum operator 18 month old and 3 years old and carry walking w/ them w/o inc pain greater than 2/10. LTG Duration 07/05/23 Assessment Summary Assessment Pt presents about 3 months after L cuboid fx and R tib/ fib fx w/resulting tib/fib ORIF a few days after injury and a few days in external fixation from proximal femur to ankle. She has just been released to WBAT on RLE and is about 1 month released from boot on LLE. She has limited R knee ROM and overall deconditioning w/RLE>LLE weakness d/t extended time NWB and dec mobility after surgery/fx. These restrictions are evident w/gait and during mobility, which limits her function w/kids and prevents her from her return to work. Pt would benfit from skilled PT to address this and return back to her typical lifestyle w/o inc pain. Physical Therapy Plan Frequency and Duration Frequency of Treatment 2x/Week Duration of treatment (weeks) 12 Plan of Care Start Date 04/12/23 Plan of Care End Date 07/05/23 Therapeutic Interventions Therapeutic Interventions Balance Training,Gait Training ,Home Exercise Program,Joint Mobilizations,Manual Therapy, Neuromuscular Re-education, Orthotic/Prosthetic Management ,Patient/Caregiver Education, Self-Care/Home Management,Soft Tissue Mobilization,Taping, Therapeutic Activities, Therapeutic Exercises Modalities Cold Pack/Ice Massage,Electric Stimulation,Hot Packs, Infrared Therapy,Iontophoresis ,Ultrasound Next Visit Focus/Plan Next Note Type Treatment Note Next Visit Plan manual to quad and hip R, manual to knee to improve ROM, review s/l abd & sit to stands consider adding band; resisted knee flex and ext Plan of Care Dates Plan of Care Start Date 04/12/23 Plan of Care End Date 07/05/23 Electronically Signed by: Jeri Leggett, PT 04/12/23 [id number] If you are in agreement with this Plan of Care, please return a signed and dated copy. I have reviewed this Plan of Care and certify that the skilled therapy services above are required to meet the patient?s needs. Physician Signature Date Printed Name and Credentials Clinical Instructor Signature Printed Name and Credentials
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
--- NOTE | 2023-04-27 17:42 | PT.OTN ---
Current Diagnoses Muscle weakness (generalized) (04/27/23) Difficulty in walking, not elsewhere classified (04/27/23) Displaced bicondylar fracture of right tibia, subsequent encounter for closed fracture with routine healing (04/27/23) Displaced fracture of cuboid bone of left foot, subsequent encounter for fracture with routine healing (04/27/23) Physical Therapy Treatment Note PT-OP-A Visit Information Start: 04/12/23 07:32 Freq: Status: Active Protocol: Document 04/27/23 16:07 [facility] (Rec: 04/27/23 17:42 [facility] [id number]) Out-Patient Physical Therapy Visit Information Visit Information Visit Note Student PT Morena Sow participated in treatment session w/PT direct supervision and direction Visit Start Time 16:05 Visit Stop Time 16:49 Total Visit Minutes 44 Visit Number 3 Number of POST OFFICE MANAGER Visits 0 PT-OP-B Current Condition Start: 04/12/23 07:32 Freq: Status: Active Protocol: Document 04/12/23 12:54 [facility] (Rec: 04/12/23 15:40 [facility] [id number]) Current Condition History of Current Condition Onset Date Jan 12 Current Complaints R ORIF tib/fib, L cuboid fx History of Current Condition Pt was jumping on trampoline and was doubl ejumped by on Jan and fractured cuboid L and R tib/fib fx w/ initial external fixation of femur to tibia and internal fixation a few days later. She was cleared for WBAT about 1 week ago but was doing some the week before. She was in a boot for L foot and that came off at 6 weeks. Fracture is healed in L foot. She was doing HH until last week. No restrictions noted. She sees [place] [facility] . Pain has been tough and takes tylenol at night to sleep. Pt is hoping to get back to work in May. Prior Treatments and Tests PT Treatment Goals Patient/Caregiver Goals Be able to be on her feet for a 10 hour shift at work, be able run to catch /play w/kids , be able to squat to lift kids comfortable and carry her kids w/o pain PT-OP-C Subjective Start: 04/12/23 07:32 Freq: Status: Active Protocol: Document 04/27/23 16:07 [facility] (Rec: 04/27/23 17:42 [facility] [id number]) OP-PT Subjective Patient Comments Patient Comments Pt reprots she tried to work 6 hours yesterday and was sore after 2 hours and was painful the rest of the day until the next day. PT-OP-D Balance Start: 04/12/23 07:32 Freq: Status: Active Protocol: Document 04/12/23 12:54 [facility] (Rec: 04/12/23 15:40 [facility] [id number]) Balance Tests Single Limb Standing Single Limb- Right 1 sec and painful Single Limb- Left leans L >30 sec PT-OP-G Mobility & Gait Start: 04/12/23 07:32 Freq: Status: Active Protocol: Document 04/12/23 12:54 [facility] (Rec: 04/12/23 15:40 [id number] OP Gait Assessment Comments Gait Comments dec RLE stance time w/dec knee flex/ext PT-OP-J Posture/Palpation/Skin Start: 04/12/23 07:32 Freq: Status: Active Protocol: Document 04/12/23 12:54 [facility] (Rec: 04/12/23 15:40 [id number] Posture Evaluation Comments Posture Comments R>L knee valgus; L>R rearfoot valgus, ER of R femur, IR tibia, IR of R femur PT-OP-K Range of Motion Start: 04/12/23 07:32 Freq: Status: Active Protocol: Document 04/12/23 12:54 [facility] (Rec: 04/12/23 15:40 [facility] [id number]) Knee Goniometric Range of Motion Knee Right Flexion Active (degrees) 104 Extension Active (degrees) 2 Ankle and Foot Goniometric Range of Motion Ankle and Foot Right Active Dorsiflexion with Knee Flexed 5 Dorsiflexion with Knee Extended 2 Comments inversion/eversion/PF WNL; eversion painful Left Active Dorsiflexion with Knee Flexed 9 Dorsiflexion with Knee Extended 6 Comments inversion/eversion/PF WNL; eversion painful PT-OP-L Special Tests Start: 04/12/23 07:32 Freq: Status: Active Protocol: Document 04/12/23 12:54 [facility] (Rec: 04/12/23 15:40 [facility] [id number]) Special Tests Knee Special Tests Cuate Comments B hip flexor, R RF & quad tightness Straight Leg Raise Comments grossly about 70 deg B -some lat tightness on R PT-OP-M Strength Start: 04/12/23 07:32 Freq: Status: Active Protocol: Document 04/12/23 12:54 [facility] (Rec: 04/12/23 15:40 [facility] [id number]) Hip Strength Hip Manual Muscle Testing Right Flexion (L2) 3 Fair Extension (S1) 4- Good- Abduction 3 Fair Adduction 3+ Fair+ External Rotation 4- Good- Internal Rotation 3 Fair Comments painful ER Left Flexion (L2) 3+ Fair+ Extension (S1) 4- Good- Abduction 3+ Fair+ Adduction 3+ Fair+ External Rotation 4+ Good+ Internal Rotation 3+ Fair+ Knee Strength Knee Manual Muscle Testing Right Flexion (S2) 4- Good- Extension (L3) 3 Fair Comments pain ext>flex Left Flexion (S2) 5 Normal Extension (L3) 5 Normal Ankle/Foot Strength Ankle and Foot Manual Muscle Testing Right Dorsiflexion (L4) 5 Normal Plantarflexion (S1) 2+ Poor+ Inversion 4- Good- Eversion (S1) 5 Normal Comments pain inversion Left Dorsiflexion (L4) 5 Normal Plantarflexion (S1) 4 Good Inversion 5 Normal Eversion (S1) 5 Normal Comments pain w/eversion; 13 heel raises Toe Strength Toe Manual Muscle Testing Right Great Toe Flexion 5 Normal Extension 4+ Good+ Comments toes 2-5 ext: 4/5; flex 5/5 Left Great Toe Flexion 5 Normal Extension 5 Normal Comments toes 2-5 :5/5 PT-OP-Q Treatments Start: 04/12/23 07:32 Freq: Status: Active Protocol: Document 04/27/23 16:07 [facility] (Rec: 04/27/23 17:42 [facility] [id number]) Cardio Equipment Bicycle (Upright) Duration (Minutes) 5 Resistance none to 3 Seat Position 2 Gym Equipment Shuttle Recovery Bilateral Squats Resistance 75# Shuttle Recovery Platform Stable Reps/Time 15 Shuttle Balance red clips Comments fwd: WBOS balance & wt shifts, NBOS balance and wt shifts, staggered stance balance Therapeutic Exercises Sitting Exercises knee flex Sitting Exercise Name w/opp knee in ext Side bilateral Equipment Used orange band Reps/Minutes 8 Standing Exercises step ups Standing Exercise Name to SL Side right Equipment Used 4 in Reps/Minutes 10 calf stretch Standing Exercise Name fwd lean 1. gastroc 2. soleus Side right Reps/Minutes 30 sec ea sit to stand Standing Exercise Name cues to keep knee out and glute squeeze up Side bilateral Equipment Used green band at knees Reps/Minutes 5 hip abd Side bilateral Equipment Used orange band Reps/Minutes 6 Manual Therapy Treatment Soft Tissue Mobilization scar Body Location r Mobilization Type Instrument Assisted,Myofascial Release,Rolling,Sustained Pressure Intensity/Depth sup to mod Body Position Hooklying Comments plunger and manual hand Neuro Re-Education Treatment Balance Activities SLS Reps/Duration 15B Comments alt LE taps to stair PT-OP-T Assessment and Plan Start: 04/12/23 07:32 Freq: Status: Active Protocol: Document 04/27/23 16:07 [facility] (Rec: 04/27/23 17:42 [facility] [id number]) Physical Therapy Assessment Goals LEFS Impairment 47/80 Short Term Goal (STG) pt will improve LEFS to at least 58/80 to show improved functional ability. STG Duration 05/28/23 Sample Tester Grinder Goal (LTG) pt will improve LEFS to at least 75/80 to show improved functional ability. 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 LTG Duration 07/05/23 ROM Short Term Goal (STG) Pt will be able to ext to fully straight (0) w/o inc pain. STG Duration 05/28/23 Prison Goal (LTG) Pt will be able flex knee to at least 120 deg in order to allow pt to ascend and descend stairs w/o inc pain. LTG Duration 07/05/23 kids Short Term Goal (STG) Pt will be able to squat and berry picker 18 month old w/o inc pain greater than 2/10. STG Duration 05/28/23 Prison Goal (LTG) Pt will be able to squat and berry picker 18 month old and 3 years old and carry walking w/ them w/o inc pain greater than 2/10. LTG Duration 07/05/23 Assessment Summary Assessment Pt had improved ROM and at of session had 115 deg knee flex. She did well but was challenged by balance activities. She did well with her HEP requiring only min cues. Physical Therapy Plan Frequency and Duration Frequency of Treatment 2x/Week Duration of treatment (weeks) 12 Plan of Care Start Date 04/12/23 Plan of Care End Date 07/05/23 Next Visit Focus/Plan Next Note Type Treatment Note Next Visit Plan review core isometric, cont to work on WB strength and balance, cont to improve knee flex/ext
--- NOTE | 2023-05-04 17:58 | PT.OTN ---
Current Diagnoses Muscle weakness (generalized) (05/04/23) Difficulty in walking, not elsewhere classified (05/04/23) Displaced bicondylar fracture of right tibia, subsequent encounter for closed fracture with routine healing (05/04/23) Displaced fracture of cuboid bone of left foot, subsequent encounter for fracture with routine healing (05/04/23) Physical Therapy Treatment Note PT-OP-A Visit Information Start: 04/12/23 07:32 Freq: Status: Active Protocol: Document 05/04/23 14:44 [facility] (Rec: 05/04/23 17:57 [facility] [id number]) Out-Patient Physical Therapy Visit Information Visit Information Visit Type Treatment Note Visit Note Student PT Morena Sow participated in treatment session w/PT direct supervision and direction Visit Start Time 14:37 Visit Stop Time 15:27 Total Visit Minutes 50 Visit Number 4 Number of FIELD LIABILITY GENERALIST Visits 0 PT-OP-B Current Condition Start: 04/12/23 07:32 Freq: Status: Active Protocol: Document 04/12/23 12:54 [facility] (Rec: 04/12/23 15:40 [facility] [id number]) Current Condition History of Current Condition Onset Date Jan 12 Current Complaints R ORIF tib/fib, L cuboid fx History of Current Condition Pt was jumping on trampoline and was doubl ejumped by on Jan and fractured cuboid L and R tib/fib fx w/ initial external fixation of femur to tibia and internal fixation a few days later. She was cleared for WBAT about 1 week ago but was doing some the week before. She was in a boot for L foot and that came off at 6 weeks. Fracture is healed in L foot. She was doing HH until last week. No restrictions noted. She sees [facility] . Pain has been tough and takes tylenol at night to sleep. Pt is hoping to get back to work in May. Prior Treatments and Tests PT Treatment Goals Patient/Caregiver Goals Be able to be on her feet for a 10 hour shift at work, be able run to catch /play w/kids , be able to squat to lift kids comfortable and carry her kids w/o pain PT-OP-C Subjective Start: 04/12/23 07:32 Freq: Status: Active Protocol: Document 05/04/23 14:44 [facility] (Rec: 05/04/23 17:57 [facility] [id number]) OP-PT Subjective Patient Comments Patient Comments Pt reports going ot the gym for 4-5 days doing bike and HEP PT-OP-D Balance Start: 04/12/23 07:32 Freq: Status: Active Protocol: Document 04/12/23 12:54 [facility] (Rec: 04/12/23 15:40 [facility] [id number]) Balance Tests Single Limb Standing Single Limb- Right 1 sec and painful Single Limb- Left leans L >30 sec PT-OP-G Mobility & Gait Start: 04/12/23 07:32 Freq: Status: Active Protocol: Document 04/12/23 12:54 [facility] (Rec: 04/12/23 15:40 [facility] [id number]) OP Gait Assessment Comments Gait Comments dec RLE stance time w/dec knee flex/ext PT-OP-J Posture/Palpation/Skin Start: 04/12/23 07:32 Freq: Status: Active Protocol: Document 04/12/23 12:54 [facility] (Rec: 04/12/23 15:40 [facility] [id number]) Posture Evaluation Comments Posture Comments R>L knee valgus; L>R rearfoot valgus, ER of R femur, IR tibia, IR of R femur PT-OP-K Range of Motion Start: 04/12/23 07:32 Freq: Status: Active Protocol: Document 04/12/23 12:54 [facility] (Rec: 04/12/23 15:40 [facility] [id number]) Knee Goniometric Range of Motion Knee Right Flexion Active (degrees) 104 Extension Active (degrees) 2 Ankle and Foot Goniometric Range of Motion Ankle and Foot Right Active Dorsiflexion with Knee Flexed 5 Dorsiflexion with Knee Extended 2 Comments inversion/eversion/PF WNL; eversion painful Left Active Dorsiflexion with Knee Flexed 9 Dorsiflexion with Knee Extended 6 Comments inversion/eversion/PF WNL; eversion painful PT-OP-L Special Tests Start: 04/12/23 07:32 Freq: Status: Active Protocol: Document 04/12/23 12:54 [facility] (Rec: 04/12/23 15:40 [facility] [id number]) Special Tests Knee Special Tests Cuate Comments B hip flexor, R RF & quad tightness Straight Leg Raise Comments grossly about 70 deg B -some lat tightness on R PT-OP-M Strength Start: 04/12/23 07:32 Freq: Status: Active Protocol: Document 04/12/23 12:54 [facility] (Rec: 04/12/23 15:40 [facility] [id number]) Hip Strength Hip Manual Muscle Testing Right Flexion (L2) 3 Fair Extension (S1) 4- Good- Abduction 3 Fair Adduction 3+ Fair+ External Rotation 4- Good- Internal Rotation 3 Fair Comments painful ER Left Flexion (L2) 3+ Fair+ Extension (S1) 4- Good- Abduction 3+ Fair+ Adduction 3+ Fair+ External Rotation 4+ Good+ Internal Rotation 3+ Fair+ Knee Strength Knee Manual Muscle Testing Right Flexion (S2) 4- Good- Extension (L3) 3 Fair Comments pain ext>flex Left Flexion (S2) 5 Normal Extension (L3) 5 Normal Ankle/Foot Strength Ankle and Foot Manual Muscle Testing Right Dorsiflexion (L4) 5 Normal Plantarflexion (S1) 2+ Poor+ Inversion 4- Good- Eversion (S1) 5 Normal Comments pain inversion Left Dorsiflexion (L4) 5 Normal Plantarflexion (S1) 4 Good Inversion 5 Normal Eversion (S1) 5 Normal Comments pain w/eversion; 13 heel raises Toe Strength Toe Manual Muscle Testing Right Great Toe Flexion 5 Normal Extension 4+ Good+ Comments toes 2-5 ext: 4/5; flex 5/5 Left Great Toe Flexion 5 Normal Extension 5 Normal Comments toes 2-5 :5/5 PT-OP-Q Treatments Start: 04/12/23 07:32 Freq: Status: Active Protocol: Document 05/04/23 14:44 [facility] (Rec: 05/04/23 17:57 [facility] [id number]) Therapeutic Exercises Supine Exercises bridge Side bilateral Reps/Minutes 10 sec x5 Comments arms up Standing Exercises heel raise Standing Exercise Name SL Side right Reps/Minutes 10 squat Standing Exercise Name wall squat Side bilateral Equipment Used orange ball Reps/Minutes 12; 3x3sec hold march Side bilateral Reps/Minutes 10 Comments in mirror for neutral spine step ups Standing Exercise Name 1. fwd 2. side Side right Equipment Used 4 in Reps/Minutes 10 Comments to SL hip abd Side bilateral Equipment Used orange band Reps/Minutes 20ft Comments max cues for alignment Gait Training Gait Activity wt shifts Comments 1.10x fwd to R 2.8x fwd over RLE w/step through w/L 3. fwd walk in mirror x20ft w/ cues for wt shift and knee flex Manual Therapy Treatment Soft Tissue Mobilization scar Body Location tibial scar & femoral scars Mobilization Type Myofascial Release,Rolling Comments w/ankle pumps PT-OP-R Modalities Start: 04/12/23 07:32 Freq: Status: Active Protocol: Document 05/04/23 14:44 [facility] (Rec: 05/04/23 17:58 [facility] [id number]) Hot Pack/Cold Pack Treatment Cold Pack Location R knee Patient Position Hooklying Treatment Duration (minutes) 10 PT-OP-T Assessment and Plan Start: 04/12/23 07:32 Freq: Status: Active Protocol: Document 05/04/23 14:44 [facility] (Rec: 05/04/23 17:57 [facility] [id number]) Physical Therapy Assessment Goals LEFS Impairment 47/80 Short Term Goal (STG) pt will improve LEFS to at least 58/80 to show improved functional ability. STG Duration 05/28/23 Senior Major Gifts Officer Goal (LTG) pt will improve LEFS to at least 75/80 to show improved functional ability. 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 LTG Duration 07/05/23 ROM Short Term Goal (STG) Pt will be able to ext to fully straight (0) w/o inc pain. STG Duration 05/28/23 Senior Major Gifts Officer Goal (LTG) Pt will be able flex knee to at least 120 deg in order to allow pt to ascend and descend stairs w/o inc pain. LTG Duration 07/05/23 kids Short Term Goal (STG) Pt will be able to squat and greens picker 18 month old w/o inc pain greater than 2/10. STG Duration 05/28/23 Custodial Goal (LTG) Pt will be able to squat and greens picker 18 month old and 3 years old and carry walking w/ them w/o inc pain greater than 2/10. LTG Duration 07/05/23 Assessment Summary Assessment Pt had 114 deg at start of session and improved to 120 at the end of session. She demonstrated improved gait mechanics w/cues and use of mirror. Quads fatigued at end of session. Physical Therapy Plan Frequency and Duration Frequency of Treatment 2x/Week Duration of treatment (weeks) 12 Plan of Care Start Date 04/12/23 Plan of Care End Date 07/05/23 Next Visit Focus/Plan Next Note Type Treatment Note Next Visit Plan cont to work on RLE wt acceptance and RLE strength; show HS machine for gym
--- NOTE | 2023-05-17 16:23 | PT.OTN ---
Addendum entered and electronically signed by Jeri Leggett, PT 05/17/23 18:03: PT direct supervision and direction to PT student. Original Note: Current Diagnoses Muscle weakness (generalized) (05/17/23) Difficulty in walking, not elsewhere classified (05/17/23) Displaced bicondylar fracture of right tibia, subsequent encounter for closed fracture with routine healing (05/17/23) Displaced fracture of cuboid bone of left foot, subsequent encounter for fracture with routine healing (05/17/23) Physical Therapy Treatment Note PT-OP-A Visit Information Start: 04/12/23 07:32 Freq: Status: Active Protocol: Document 05/17/23 09:52 [facility] (Rec: 05/17/23 10:36 [facility] [id number]) Out-Patient Physical Therapy Visit Information Visit Information Visit Type Treatment Note Visit Start Time 09:49 Visit Stop Time 10:32 Total Visit Minutes 43 Visit Number 5 Number of SLOT MACHINE REPAIRER Visits 0 PT-OP-B Current Condition Start: 04/12/23 07:32 Freq: Status: Active Protocol: Document 04/12/23 12:54 [facility] (Rec: 04/12/23 15:40 [facility] [id number]) Current Condition History of Current Condition Onset Date Jan 12 Current Complaints R ORIF tib/fib, L cuboid fx History of Current Condition Pt was jumping on trampoline and was doubl ejumped by on Jan and fractured cuboid L and R tib/fib fx w/ initial external fixation of femur to tibia and internal fixation a few days later. She was cleared for WBAT about 1 week ago but was doing some the week before. She was in a boot for L foot and that came off at 6 weeks. Fracture is healed in L foot. She was doing HH until last week. No restrictions noted. She sees [facility] . Pain has been tough and takes tylenol at night to sleep. Pt is hoping to get back to work in May. Prior Treatments and Tests PT Treatment Goals Patient/Caregiver Goals Be able to be on her feet for a 10 hour shift at work, be able run to catch /play w/kids , be able to squat to lift kids comfortable and carry her kids w/o pain PT-OP-C Subjective Start: 04/12/23 07:32 Freq: Status: Active Protocol: Document 05/17/23 09:52 [facility] (Rec: 05/17/23 10:36 [facility] [id number]) OP-PT Subjective Patient Comments Patient Comments Gym workouts have been going well, added in more leg movements and has been feeling good overall. PT-OP-D Balance Start: 04/12/23 07:32 Freq: Status: Active Protocol: Document 04/12/23 12:54 [facility] (Rec: 04/12/23 15:40 [facility] [id number]) Balance Tests Single Limb Standing Single Limb- Right 1 sec and painful Single Limb- Left leans L >30 sec PT-OP-G Mobility & Gait Start: 04/12/23 07:32 Freq: Status: Active Protocol: Document 04/12/23 12:54 [facility] (Rec: 04/12/23 15:40 [facility] [id number]) OP Gait Assessment Comments Gait Comments dec RLE stance time w/dec knee flex/ext PT-OP-J Posture/Palpation/Skin Start: 04/12/23 07:32 Freq: Status: Active Protocol: Document 04/12/23 12:54 [facility] (Rec: 04/12/23 15:40 [facility] [id number]) Posture Evaluation Comments Posture Comments R>L knee valgus; L>R rearfoot valgus, ER of R femur, IR tibia, IR of R femur PT-OP-K Range of Motion Start: 04/12/23 07:32 Freq: Status: Active Protocol: Document 04/12/23 12:54 [facility] (Rec: 04/12/23 15:40 [facility] [id number]) Knee Goniometric Range of Motion Knee Right Flexion Active (degrees) 104 Extension Active (degrees) 2 Ankle and Foot Goniometric Range of Motion Ankle and Foot Right Active Dorsiflexion with Knee Flexed 5 Dorsiflexion with Knee Extended 2 Comments inversion/eversion/PF WNL; eversion painful Left Active Dorsiflexion with Knee Flexed 9 Dorsiflexion with Knee Extended 6 Comments inversion/eversion/PF WNL; eversion painful PT-OP-L Special Tests Start: 04/12/23 07:32 Freq: Status: Active Protocol: Document 04/12/23 12:54 [facility] (Rec: 04/12/23 15:40 [facility] [id number]) Special Tests Knee Special Tests Cuate Comments B hip flexor, R RF & quad tightness Straight Leg Raise Comments grossly about 70 deg B -some lat tightness on R PT-OP-M Strength Start: 04/12/23 07:32 Freq: Status: Active Protocol: Document 04/12/23 12:54 [facility] (Rec: 04/12/23 15:40 [facility] [id number]) Hip Strength Hip Manual Muscle Testing Right Flexion (L2) 3 Fair Extension (S1) 4- Good- Abduction 3 Fair Adduction 3+ Fair+ External Rotation 4- Good- Internal Rotation 3 Fair Comments painful ER Left Flexion (L2) 3+ Fair+ Extension (S1) 4- Good- Abduction 3+ Fair+ Adduction 3+ Fair+ External Rotation 4+ Good+ Internal Rotation 3+ Fair+ Knee Strength Knee Manual Muscle Testing Right Flexion (S2) 4- Good- Extension (L3) 3 Fair Comments pain ext>flex Left Flexion (S2) 5 Normal Extension (L3) 5 Normal Ankle/Foot Strength Ankle and Foot Manual Muscle Testing Right Dorsiflexion (L4) 5 Normal Plantarflexion (S1) 2+ Poor+ Inversion 4- Good- Eversion (S1) 5 Normal Comments pain inversion Left Dorsiflexion (L4) 5 Normal Plantarflexion (S1) 4 Good Inversion 5 Normal Eversion (S1) 5 Normal Comments pain w/eversion; 13 heel raises Toe Strength Toe Manual Muscle Testing Right Great Toe Flexion 5 Normal Extension 4+ Good+ Comments toes 2-5 ext: 4/5; flex 5/5 Left Great Toe Flexion 5 Normal Extension 5 Normal Comments toes 2-5 :5/5 PT-OP-Q Treatments Start: 04/12/23 07:32 Freq: Status: Active Protocol: Document 05/17/23 09:52 [facility] (Rec: 05/17/23 10:36 [facility] [id number]) Cardio Equipment Bicycle (Upright) Duration (Minutes) 6 Resistance 6 Seat Position 2 Gym Equipment Shuttle Recovery Unilateral Squats Details Right Resistance 37# Reps/Time 2x10 Bilateral Squats Details inc weight next time Resistance 75# Shuttle Recovery Platform Stable Reps/Time 15 Therapeutic Exercises Standing Exercises lat step down Standing Exercise Name lateral step down Side bilateral Equipment Used 4, 2 Reps/Minutes x10 Comments pain w/ 4 step, moved down to 2 squat Standing Exercise Name Squat w/ db p/u Side bilateral Equipment Used 10# DB, 23# DB Reps/Minutes 2x10ea march Side bilateral Equipment Used 10# db Reps/Minutes 3x10, 1 w/o db, 1x10 ea UE w/ db Comments in mirror for neutral spine step ups Standing Exercise Name 1. fwd 2. side Side right Equipment Used 6 in Reps/Minutes 2x10 ea Comments to SL Manual Therapy Treatment Soft Tissue Mobilization scar Body Location tibial scar & femoral scars Mobilization Type Myofascial Release,Rolling Comments w/ankle pumps PT-OP-R Modalities Start: 04/12/23 07:32 Freq: Status: Active Protocol: Document 05/04/23 14:44 [facility] (Rec: 05/04/23 17:58 [facility] [id number]) Hot Pack/Cold Pack Treatment Cold Pack Location R knee Patient Position Hooklying Treatment Duration (minutes) 10 PT-OP-T Assessment and Plan Start: 04/12/23 07:32 Freq: Status: Active Protocol: Document 05/17/23 09:52 [facility] (Rec: 05/17/23 10:36 [facility] [id number]) Physical Therapy Assessment Goals LEFS Impairment 47/80 Short Term Goal (STG) pt will improve LEFS to at least 58/80 to show improved functional ability. STG Duration 05/28/23 Assisted Goal (LTG) pt will improve LEFS to at least 75/80 to show improved functional ability. 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 LTG Duration 07/05/23 ROM Short Term Goal (STG) Pt will be able to ext to fully straight (0) w/o inc pain. STG Duration 05/28/23 Nut Blanker Operator Goal (LTG) Pt will be able flex knee to at least 120 deg in order to allow pt to ascend and descend stairs w/o inc pain. LTG Duration 07/05/23 kids Short Term Goal (STG) Pt will be able to squat and pick up operator 18 month old w/o inc pain greater than 2/10. STG Duration 05/28/23 Assisted Goal (LTG) Pt will be able to squat and pick up operator 18 month old and 3 years old and carry walking w/ them w/o inc pain greater than 2/10. LTG Duration 07/05/23 Assessment Summary Assessment Pt imroved knee flex ROM from 120-125 w/ manual. Overall pt was able to progress load well during session, improving step ups to 6 step and adding 7# dbs. Pt had pain in R knee with lat step downs off 4 step, but was able to complete on 2 step w/o pain and greater control. Pt also able to complete squats with 23# db p/u to mimick picking up child & pt maintained good form and neutral spine. Physical Therapy Plan Frequency and Duration Frequency of Treatment 2x/Week Duration of treatment (weeks) 12 Plan of Care Start Date 04/12/23 Plan of Care End Date 07/05/23 Next Visit Focus/Plan Next Note Type Treatment Note Next Visit Plan cont to work on RLE wt acceptance and RLE strength; show HS machine for gym
--- NOTE | 2023-05-31 10:04 | PT.OTN ---
Current Diagnoses Muscle weakness (generalized) (05/31/23) Difficulty in walking, not elsewhere classified (05/31/23) Displaced bicondylar fracture of right tibia, subsequent encounter for closed fracture with routine healing (05/31/23) Displaced fracture of cuboid bone of left foot, subsequent encounter for fracture with routine healing (05/31/23) Physical Therapy Treatment Note PT-OP-A Visit Information Start: 04/12/23 07:32 Freq: Status: Active Protocol: Document 05/31/23 09:13 [facility] (Rec: 05/31/23 10:04 [facility] [id number]) Out-Patient Physical Therapy Visit Information Visit Information Visit Type Treatment Note Visit Start Time 09:06 Visit Stop Time 09:47 Total Visit Minutes 41 Visit Number 6 Number of PONY EDGER Visits 0 PT-OP-B Current Condition Start: 04/12/23 07:32 Freq: Status: Active Protocol: Document 04/12/23 12:54 [facility] (Rec: 04/12/23 15:40 [facility] [id number]) Current Condition History of Current Condition Onset Date Jan 12 Current Complaints R ORIF tib/fib, L cuboid fx History of Current Condition Pt was jumping on trampoline and was doubl ejumped by on Jan and fractured cuboid L and R tib/fib fx w/ initial external fixation of femur to tibia and internal fixation a few days later. She was cleared for WBAT about 1 week ago but was doing some the week before. She was in a boot for L foot and that came off at 6 weeks. Fracture is healed in L foot. She was doing HH until last week. No restrictions noted. She sees [place] [facility] . Pain has been tough and takes tylenol at night to sleep. Pt is hoping to get back to work in May. Prior Treatments and Tests PT Treatment Goals Patient/Caregiver Goals Be able to be on her feet for a 10 hour shift at work, be able run to catch /play w/kids , be able to squat to lift kids comfortable and carry her kids w/o pain PT-OP-C Subjective Start: 04/12/23 07:32 Freq: Status: Active Protocol: Document 05/31/23 09:13 [facility] (Rec: 05/31/23 10:04 [facility] [id number]) OP-PT Subjective Patient Comments Patient Comments Pt reports pushing a gurney w/ a heavy pt last week w/o inc pain. PT-OP-D Balance Start: 04/12/23 07:32 Freq: Status: Active Protocol: Document 04/12/23 12:54 [facility] (Rec: 04/12/23 15:40 [facility] [id number]) Balance Tests Single Limb Standing Single Limb- Right 1 sec and painful Single Limb- Left leans L >30 sec PT-OP-G Mobility & Gait Start: 04/12/23 07:32 Freq: Status: Active Protocol: Document 04/12/23 12:54 [facility] (Rec: 04/12/23 15:40 [facility] [id number]) OP Gait Assessment Comments Gait Comments dec RLE stance time w/dec knee flex/ext PT-OP-J Posture/Palpation/Skin Start: 04/12/23 07:32 Freq: Status: Active Protocol: Document 04/12/23 12:54 [facility] (Rec: 04/12/23 15:40 [facility] [id number]) Posture Evaluation Comments Posture Comments R>L knee valgus; L>R rearfoot valgus, ER of R femur, IR tibia, IR of R femur PT-OP-K Range of Motion Start: 04/12/23 07:32 Freq: Status: Active Protocol: Document 04/12/23 12:54 [facility] (Rec: 04/12/23 15:40 [facility] [id number]) Knee Goniometric Range of Motion Knee Right Flexion Active (degrees) 104 Extension Active (degrees) 2 Ankle and Foot Goniometric Range of Motion Ankle and Foot Right Active Dorsiflexion with Knee Flexed 5 Dorsiflexion with Knee Extended 2 Comments inversion/eversion/PF WNL; eversion painful Left Active Dorsiflexion with Knee Flexed 9 Dorsiflexion with Knee Extended 6 Comments inversion/eversion/PF WNL; eversion painful PT-OP-L Special Tests Start: 04/12/23 07:32 Freq: Status: Active Protocol: Document 04/12/23 12:54 [facility] (Rec: 04/12/23 15:40 [facility] [id number]) Special Tests Knee Special Tests Cuate Comments B hip flexor, R RF & quad tightness Straight Leg Raise Comments grossly about 70 deg B -some lat tightness on R PT-OP-M Strength Start: 04/12/23 07:32 Freq: Status: Active Protocol: Document 04/12/23 12:54 [facility] (Rec: 04/12/23 15:40 [facility] [id number]) Hip Strength Hip Manual Muscle Testing Right Flexion (L2) 3 Fair Extension (S1) 4- Good- Abduction 3 Fair Adduction 3+ Fair+ External Rotation 4- Good- Internal Rotation 3 Fair Comments painful ER Left Flexion (L2) 3+ Fair+ Extension (S1) 4- Good- Abduction 3+ Fair+ Adduction 3+ Fair+ External Rotation 4+ Good+ Internal Rotation 3+ Fair+ Knee Strength Knee Manual Muscle Testing Right Flexion (S2) 4- Good- Extension (L3) 3 Fair Comments pain ext>flex Left Flexion (S2) 5 Normal Extension (L3) 5 Normal Ankle/Foot Strength Ankle and Foot Manual Muscle Testing Right Dorsiflexion (L4) 5 Normal Plantarflexion (S1) 2+ Poor+ Inversion 4- Good- Eversion (S1) 5 Normal Comments pain inversion Left Dorsiflexion (L4) 5 Normal Plantarflexion (S1) 4 Good Inversion 5 Normal Eversion (S1) 5 Normal Comments pain w/eversion; 13 heel raises Toe Strength Toe Manual Muscle Testing Right Great Toe Flexion 5 Normal Extension 4+ Good+ Comments toes 2-5 ext: 4/5; flex 5/5 Left Great Toe Flexion 5 Normal Extension 5 Normal Comments toes 2-5 :5/5 PT-OP-Q Treatments Start: 04/12/23 07:32 Freq: Status: Active Protocol: Document 05/31/23 09:13 [facility] (Rec: 05/31/23 10:04 [facility] [id number]) Therapeutic Exercises Standing Exercises lat step down Standing Exercise Name lateral step down Side bilateral Equipment Used 4, Reps/Minutes x10 heel raise Standing Exercise Name SL Side bilateral Equipment Used step on L: ground on R after 3 on step Reps/Minutes 10 Manual Therapy Treatment Soft Tissue Mobilization HS Body Location r Mobilization Type Rolling Comments w/active HS stretcha nd knee to chest quad Body Location R Mobilization Type Rolling Intensity/Depth Moderate Comments w/ER Joint Mobilizations innominate Joint ER FM hip Joint R Direction inf and ER in hooklying FM Neuro Re-Education Treatment Balance Activities bosu Comments 1. stand balance blue and black sides 2. mini squats blue and black sides x12 ea 3. fwd step up to 2 legs x10 R 4. lat step up and over x10 B SLS Comments 1. y reach x5 B 2. RDLx 10 B w/5# opp LE 3. SL rotation x5 B PT-OP-R Modalities Start: 04/12/23 07:32 Freq: Status: Active Protocol: Document 05/04/23 14:44 [facility] (Rec: 05/04/23 17:58 [facility] [id number]) Hot Pack/Cold Pack Treatment Cold Pack Location R knee Patient Position Hooklying Treatment Duration (minutes) 10 PT-OP-T Assessment and Plan Start: 04/12/23 07:32 Freq: Status: Active Protocol: Document 05/31/23 09:13 [facility] (Rec: 05/31/23 10:04 [facility] [id number]) Physical Therapy Assessment Goals LEFS Impairment 47/80 Short Term Goal (STG) pt will improve LEFS to at least 58/80 to show improved functional ability. STG Duration 05/28/23 Line Lead Goal (LTG) pt will improve LEFS to at least 75/80 to show improved functional ability. 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 LTG Duration 07/05/23 ROM Short Term Goal (STG) Pt will be able to ext to fully straight (0) w/o inc pain. STG Duration 05/28/23 Line Lead Goal (LTG) Pt will be able flex knee to at least 120 deg in order to allow pt to ascend and descend stairs w/o inc pain. LTG Duration 07/05/23 kids Short Term Goal (STG) Pt will be able to squat and bulk picker 18 month old w/o inc pain greater than 2/10. STG Duration 05/28/23 Long-Term Goal (LTG) Pt will be able to squat and bulk picker 18 month old and 3 years old and carry walking w/ them w/o inc pain greater than 2/10. LTG Duration 07/05/23 Assessment Summary Assessment Pt had 127 deg prior to manual tday, but noted pain in thigh and hip w/janeth cross position. Improved after manual to dec pain. Improved SL activity ability Physical Therapy Plan Frequency and Duration Frequency of Treatment 2x/Week Duration of treatment (weeks) 12 Plan of Care Start Date 04/12/23 Plan of Care End Date 07/05/23 Next Visit Focus/Plan Next Note Type Treatment Note Next Visit Plan cont to work on RLE wt acceptance and RLE strength; show HS machine for gym
--- NOTE | 2023-06-30 12:36 | PT.OTN ---
Current Diagnoses Muscle weakness (generalized) (06/30/23) Difficulty in walking, not elsewhere classified (06/30/23) Displaced bicondylar fracture of right tibia, subsequent encounter for closed fracture with routine healing (06/30/23) Displaced fracture of cuboid bone of left foot, subsequent encounter for fracture with routine healing (06/30/23) Physical Therapy Treatment Note PT-OP-A Visit Information Start: 04/12/23 07:32 Freq: Status: Active Protocol: Document 06/30/23 12:00 [facility] (Rec: 06/30/23 12:36 [facility] [id number]) Out-Patient Physical Therapy Visit Information Visit Information Visit Type Discharge Summary Visit Start Time 12:00 Visit Stop Time 12:30 Total Visit Minutes 30 Visit Number 7 Number of PROCESSOR SOLID PROPELLANT Visits 0 PT-OP-B Current Condition Start: 04/12/23 07:32 Freq: Status: Active Protocol: Document 04/12/23 12:54 [facility] (Rec: 04/12/23 15:40 [facility] [id number]) Current Condition History of Current Condition Onset Date Jan 12 Current Complaints R ORIF tib/fib, L cuboid fx History of Current Condition Pt was jumping on trampoline and was doubl ejumped by on Jan and fractured cuboid L and R tib/fib fx w/ initial external fixation of femur to tibia and internal fixation a few days later. She was cleared for WBAT about 1 week ago but was doing some the week before. She was in a boot for L foot and that came off at 6 weeks. Fracture is healed in L foot. She was doing HH until last week. No restrictions noted. She sees [facility] . Pain has been tough and takes tylenol at night to sleep. Pt is hoping to get back to work in May. Prior Treatments and Tests PT Treatment Goals Patient/Caregiver Goals Be able to be on her feet for a 10 hour shift at work, be able run to catch /play w/kids , be able to squat to lift kids comfortable and carry her kids w/o pain PT-OP-C Subjective Start: 04/12/23 07:32 Freq: Status: Active Protocol: Document 06/30/23 12:00 [facility] (Rec: 06/30/23 12:36 [facility] [id number]) OP-PT Subjective Patient Comments Patient Comments Pt has been back to her gym workouts, feels they are going well, slightly limited still with deadlifts and squats, but feeling good about her progression. Has been back at work full-time for two weeks, no complaints. PT-OP-D Balance Start: 04/12/23 07:32 Freq: Status: Active Protocol: Document 06/30/23 12:00 [facility] (Rec: 06/30/23 12:29 [facility] [id number]) Balance Tests Single Limb Standing Single Limb- Right 60+ Single Limb- Left 60+ PT-OP-G Mobility & Gait Start: 04/12/23 07:32 Freq: Status: Active Protocol: Document 06/30/23 12:00 [facility] (Rec: 06/30/23 12:29 [facility] [id number]) OP Gait Assessment Comments Gait Comments Gait and stairs WNL PT-OP-J Posture/Palpation/Skin Start: 04/12/23 07:32 Freq: Status: Active Protocol: Document 04/12/23 12:54 [facility] (Rec: 04/12/23 15:40 [facility] [id number]) Posture Evaluation Comments Posture Comments R>L knee valgus; L>R rearfoot valgus, ER of R femur, IR tibia, IR of R femur PT-OP-K Range of Motion Start: 04/12/23 07:32 Freq: Status: Active Protocol: Document 06/30/23 12:00 [facility] (Rec: 06/30/23 12:29 [facility] [id number]) Knee Goniometric Range of Motion Knee Right Patient Position Supine Flexion Active (degrees) 129 Extension Active (degrees) 0 Ankle and Foot Goniometric Range of Motion Ankle and Foot Right Active Dorsiflexion with Knee Flexed 10 Dorsiflexion with Knee Extended 5 Comments inversion/eversion/PF WNL; eversion mild pain PT-OP-L Special Tests Start: 04/12/23 07:32 Freq: Status: Active Protocol: Document 06/30/23 12:00 [facility] (Rec: 06/30/23 12:29 [facility] [id number]) Special Tests Knee Special Tests Straight Leg Raise Test Results WNL PT-OP-M Strength Start: 04/12/23 07:32 Freq: Status: Active Protocol: Document 06/30/23 12:00 [facility] (Rec: 06/30/23 12:29 [facility] [id number]) Hip Strength Hip Manual Muscle Testing Right Flexion (L2) 4+ Good+ Extension (S1) 4 Good Abduction 4- Good- Adduction 4 Good External Rotation 4+ Good+ Internal Rotation 4- Good- Knee Strength Knee Manual Muscle Testing Right Flexion (S2) 4 Good Extension (L3) 4- Good- Ankle/Foot Strength Ankle and Foot Manual Muscle Testing Right Dorsiflexion (L4) 5 Normal Plantarflexion (S1) 5 Normal Inversion 5 Normal Eversion (S1) 5 Normal PT-OP-Q Treatments Start: 04/12/23 07:32 Freq: Status: Active Protocol: Document 05/31/23 09:13 [facility] (Rec: 05/31/23 10:04 [facility] [id number]) Therapeutic Exercises Standing Exercises lat step down Standing Exercise Name lateral step down Side bilateral Equipment Used 4, Reps/Minutes x10 heel raise Standing Exercise Name SL Side bilateral Equipment Used step on L: ground on R after 3 on step Reps/Minutes 10 Manual Therapy Treatment Soft Tissue Mobilization HS Body Location r Mobilization Type Rolling Comments w/active HS stretcha nd knee to chest quad Body Location R Mobilization Type Rolling Intensity/Depth Moderate Comments w/ER Joint Mobilizations innominate Joint ER FM hip Joint R Direction inf and ER in hooklying FM Neuro Re-Education Treatment Balance Activities bosu Comments 1. stand balance blue and black sides 2. mini squats blue and black sides x12 ea 3. fwd step up to 2 legs x10 R 4. lat step up and over x10 B SLS Comments 1. y reach x5 B 2. RDLx 10 B w/5# opp LE 3. SL rotation x5 B PT-OP-R Modalities Start: 04/12/23 07:32 Freq: Status: Active Protocol: Document 05/04/23 14:44 [facility] (Rec: 05/04/23 17:58 [facility] [id number]) Hot Pack/Cold Pack Treatment Cold Pack Location R knee Patient Position Hooklying Treatment Duration (minutes) 10 PT-OP-T Assessment and Plan Start: 04/12/23 07:32 Freq: Status: Active Protocol: Document 06/30/23 12:00 [facility] (Rec: 06/30/23 12:36 [facility] [id number]) Physical Therapy Assessment Goals LEFS Impairment 63/80 Short Term Goal (STG) pt will improve LEFS to at least 58/80 to show improved functional ability. STG Duration Met Bread Dumper Goal (LTG) pt will improve LEFS to at least 75/80 to show improved functional ability. 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 LTG Duration Partially met ROM Short Term Goal (STG) Pt will be able to ext to fully straight (0) w/o inc pain. STG Duration Met Fdc Goal (LTG) Pt will be able flex knee to at least 120 deg in order to allow pt to ascend and descend stairs w/o inc pain. 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 STG Duration Met Fdc Goal (LTG) Pt will be able to squat and curing pickling packer 18 month old and 3 years old and carry walking w/ them w/o inc pain greater than 2/10. LTG Duration Met Assessment Summary Assessment Pt has largely met all goals, some slight lingering weakness in R LE secondary to pain, and has not returned to any running, but admits she has no desire to do any running. Happy with current level of function, happy with HEP/gym routine, expressed desire for discharge from skilled PT at this time. Physical Therapy Plan Frequency and Duration Frequency of Treatment 2x/Week Duration of treatment (weeks) 12 Plan of Care Start Date 04/12/23 Plan of Care End Date 07/05/23 Discharge Physical Therapy Discharge Reasons Patient Request
== END 2023-07-02 13:09 | disposition home or self-care (01) ==
LOC: PHYS 12:00
PROVIDERS: Family Provider Physician Assistant; PCP Physician Assistant; Referring Provider Physician Assistant; Visit Provider Physician Assistant
DX: S82.141D Displaced bicondylar fracture of right tibia, subsequent encounter for closed fracture with routine healing (principal); S92.212D Displaced fracture of cuboid bone of left foot, subsequent encounter for fracture with routine healing; M62.81 Muscle weakness (generalized); R26.2 Difficulty in walking, not elsewhere classified
CPT/HCPCS: 97110; 97112; 97116; 97140; 97162; 97530; 97535

== ENCOUNTER → 2023-07-15 11:06 | Outpatient (CLI) | payer OTHER, SELFPAY ==
[2021-01-12 17:16] VITALS: BMI 26.7
[2023-07-15 11:59] LABS: Appearance Urine UA CLEAR; Bilirubin Urine UA NEGATIVE (NEGATIVE); Color Urine UA YELLOW; Glucose Urine UA NEGATIVE (Negative); Ketones Urine UA NEGATIVE (NEGATIVE); Leukocyte Esterase Urine UA NEGATIVE (NEGATIVE); Nitrite Urine UA NEGATIVE (Negative); Occult Blood Urine UA NEGATIVE (Negative); Protein Urine UA TRACE (Negative); Specific Gravity Urine UA 1.015 (1.000-1.035)
[2023-07-15 12:05] LABS: Amorphous Sediment Urine 4+; Bacteria Urine Few (2-10); Culture Indicated Urine Cult Not Indicated; RBC Urine 1-5/HPF (0-5/HPF); Squamous Epithelial Cell Urine 5-10 /HPF (0-5/HPF); Urine Volume 10mL (spun); WBC Urine 1-5/HPF (0-5/HPF)
== END ==
PROVIDERS: Family Provider Physician Assistant; PCP Family Medicine; Referring Provider Family Medicine; Visit Provider Family Medicine
DX: R39.9 Unspecified symptoms and signs involving the genitourinary system (principal); R35.0 Frequency of micturition; R30.0 Dysuria
CPT/HCPCS: 81001

== ENCOUNTER → 2024-01-20 08:31 | Outpatient (CLI) | payer OTHER, SELFPAY ==
[2021-01-12 17:16] VITALS: BMI 26.7
--- NOTE | 2024-01-20 08:32 | DI.MG.S_ITS ---
BILATERAL DIGITAL DIAGNOSTIC MAMMOGRAM 3D/2D: 01/20/2024 CLINICAL: Left breast pain/infection. Now has lateral breast pain. CBE performed 6 wks ago, noted left lymph node swelling at 0600. Baseline exam. No prior exams were available for comparison. Both breasts are heterogeneously dense, which may obscure small masses (category c / 51-75% glandular tissue). There is a 0.6 cm oval equal density asymmetry in the left breast posterior depth superior region seen on the mediolateral oblique view only. No other significant masses, calcifications, or other findings are seen in either breast. IMPRESSION: INCOMPLETE: NEEDS ADDITIONAL IMAGING EVALUATION The 0.6 cm oval equal density asymmetry in the left breast most likely is a lymph node and is indeterminate. An ultrasound is recommended for further evaluation and is scheduled to immediately follow this examination. There is no abnormality seen in the left breast to correspond with the area of clinical concern and palpable abnormality indicated by triangular marker in the lower aspect, however, ultrasound is recommended for further evaluation and is scheduled to immediately follow this examination. Based on the Tyrer Cuzick model (a risk assessment model) the patient's lifetime risk is 14.2% and her 10 year risk is 0.7%. According to the ACR, ACS, and NCCN guidelines, an annual breast MRI exam along with mammogram is recommended if the patient's lifetime risk is 20% or greater. This exam was interpreted at Station ID: [id number]. NOTE: For mammograms, a report in lay terms will be sent to the patient. Approximately 15% of breast malignancies will not be visualized mammographically. In the management of a palpable breast mass, a negative mammogram must not discourage biopsy of a clinically suspicious lesion. Electronically Signed By: Randall Sanchez M.D. aty/:01/20/2024 09:07:41 ACR BI-RADS Category 0: Incomplete [id number]
--- NOTE | 2024-01-20 08:32 | DI.US.S_ITS ---
LIMITED ULTRASOUND OF LEFT BREAST: 01/20/2024 CLINICAL: Focal left breast pain. No prior exams were available for comparison. Real-time ultrasound of the left breast 6 o'clock region was performed. Kamara scale images of the real-time examination were reviewed. There is a 0.6 cm normal lymph node in the left axillary tail. This normal lymph node is hypoechoic with fatty hilum. This correlates with mammography findings. No significant abnormalities were seen sonographically in the left breast. IMPRESSION: BENIGN There is no sonographic evidence of malignancy. The 0.6 cm normal lymph node in the left axilla is benign. There is no abnormality seen in the left breast to correspond with the area of clinical concern and palpable abnormality indicated by triangular marker in the lower aspect (6 o'clock position, 5cm from the nipple), however, recommend clinical follow up for persistent or worsening symptoms, or development of any clinically suspicious findings. Recommend initiating routine screening mammograms at age 40. Findings and recommendations were conveyed to the patient during today's evaluation. This exam was interpreted at Station ID: [id number]. Electronically Signed By: Randall Sanchez M.D. at/:01/20/2024 09:49:29 letter sent: Clinical Evaluation Ultrasound BI-RADS: 2 Benign
== END ==
PROVIDERS: PCP Family Medicine; Referring Provider Registered Nurse; Visit Provider Registered Nurse
DX: R92.8 Other abnormal and inconclusive findings on diagnostic imaging of breast (principal); N64.89 Other specified disorders of breast; N61.0 Mastitis without abscess; R92.333 Mammographic heterogeneous density, bilateral breasts
CPT/HCPCS: 76642; 77066; G0279

== ENCOUNTER → 2024-01-25 16:40 | Outpatient (CLI) | payer OTHER, SELFPAY ==
[2021-01-12 17:16] VITALS: BMI 26.7
[2024-01-25 17:12] LABS: Add Manual Diff / Slide Review NO; Basophils Absolute Auto 0 /uL (0-100); Basophils Percent Auto 0.4 % (0-2); Eosinophils Absolute Auto 0 /uL (0-450); Eosinophils Percent Auto 0.6 % (2-4); Hematocrit 36.3 % (36-46); Hemoglobin 12.3 g/dL (12.0-16.0); Lymphocytes Absolute Auto 2300 /uL (1100-4500); Lymphocytes Percent Auto 27.3 % (25-40); Mean Corpuscular Hemoglobin 29.5 PG (26-34); Mean Corpuscular Volume 86.8 fL (80-100); Monocytes Absolute Auto 700 /uL (0-900); Monocytes Percent Auto 8.4 % (3-14); Neutrophils Absolute Auto 5400 /uL (1500-7000); Neutrophils Percent Auto 63.3 % (50-75); Platelet Count 262 X10^3/uL (150-400); Red Blood Cell Count 4.19 X10^6/uL (4.0-5.2); White Blood Cell Count 8.5 X10^3/uL (4.5-11.0)
[2024-01-25 17:33] LABS: HEMOLYSIS < 15 (0-50); Iron 63 ug/dL (37-170)
[2024-01-25 17:41] LABS: Transferrin 252 mg/dL (206-381)
[2024-01-25 18:07] LABS: Ferritin 12 ng/mL (6-137)
== END ==
LOC: LAB 16:41
PROVIDERS: PCP Family Medicine; Referring Provider Family Medicine; Visit Provider Family Medicine
DX: Z01.419 Encounter for gynecological examination (general) (routine) without abnormal findings (principal); N92.0 Excessive and frequent menstruation with regular cycle
CPT/HCPCS: 36415; 82728; 83540; 83550; 85025

== ENCOUNTER → 2024-02-19 18:04 | Outpatient (CLI) | payer OTHER, SELFPAY ==
[2021-01-12 17:16] VITALS: BMI 26.7
== END ==
PROVIDERS: PCP Family Medicine; Visit Provider Registered Nurse
DX: R30.0 Dysuria (principal)
CPT/HCPCS: 87086

== ENCOUNTER → 2025-04-21 12:19 | Outpatient (CLI) | payer OTHER, SELFPAY ==
[2021-01-12 17:16] VITALS: BMI 26.7
--- NOTE | 2025-04-21 12:22 | DI.MRI.S_ITS ---
PROCEDURE: MR BRAIN (IAC) VICENTE CON
== END ==
PROVIDERS: PCP Family Medicine; Referring Provider Family Medicine; Visit Provider Otolaryngology
DX: H90.42 Sensorineural hearing loss, unilateral, left ear, with unrestricted hearing on the contralateral side (principal); H93.A2 Pulsatile tinnitus, left ear; R42 Dizziness and giddiness
CPT/HCPCS: 70553; A9579